=== PATIENT | female | born 1980 | race Caucasian/White ===

== ENCOUNTER 2019-06-15 15:04 | Observation (INO) | payer OTHER, SELFPAY ==
[2019-06-15] VITALS (10 sets, daily range): BP systolic 123–153; BP diastolic 71–92; PULSE 74–100; RESP 16–18; TEMP 36.4–36.7; O2SAT 97–100; BMI 35.8
--- NOTE | ~2019-06-15 | XR_ITS ---
EXAMINATION: XR chest 2V EXAM DATE: 06/15/2019 16:03 INDICATION: Epigastric pain, nausea, sweating. Dizziness. TECHNIQUE: Frontal and lateral projections of the chest obtained and reviewed. There is no prior tg dy for comparison. FINDINGS: The lungs are clear. There are no pleural effusions. The cardiomediastinal silhouette is within normal limits. There is no pneumothorax suspected. The bones and soft tissues are unremarkab le. There are cholecystectomy clips. IMPRESSION: Normal chest x-ray exam. Reviewed, dictated and finalized at location A. IMPRESSION: Normal chest x-ray exam.
--- NOTE | 2019-06-15 15:15 | ED.GENADULT ---
HPI - General Adult General Chief complaint: Chest Pain Stated complaint: abd pain Time Seen by Provider: 06/15/19 15:07 Source: patient Mode of arrival: ambulatory Limitations: no limitations History of Present Illness HPI narrative: Patient is a 39-year-old female who presents for evaluation of epigastric pain. Patient states she is at her place of work, when all of a sudden, patient began to experience severe epigastric pain that radiated to her left arm, because left arm tingling and pain as well as nausea and diaphoresis. Patient also states she felt very short of breath. She states the pain lasted for approximately 5 minutes in which she went to the bathroom, removed a surgical mass that she had been wearing at her place of work, and proceeded to have 2 episodes of nonbloody, nonbilious emesis. Patient had no loss of consciousness. Patient did feel lightheaded and short of breath. Patient did not want EMS called, because she did not want to make a commotion at the [employer] office she works at. Patient's significant other drove her to our facility, where she was noted to have normal initial vital signs. At the time of assessment, patient's pain has resolved. She has a very mild aching sensation in her epigastric region. She denies any upper chest pain, back pain or flank pain. No ripping or tearing sensation in her chest or back. No current numbness, shortness of breath. No recent cough or cold symptoms. No recent travel, leg swelling, calf pain. No history of blood clots. No recent surgeries. Patient recently saw her primary care physician who scheduled her for an outpatient stress test due to very strong cardiac history in her family. Related Data Home Medications Medication Instructions Recorded Confirmed azathioprine 50 mg PO DAILY 06/15/19 06/15/19 buspirone 5 mg PO BID 06/15/19 06/15/19 duloxetine 60 mg PO DAILY 06/15/19 06/15/19 zolpidem 5 mg PO HS 06/15/19 06/15/19 Allergies Allergy/AdvReac Type Severity Reaction Status Date / Time Penicillins Allergy Severe Other Verified 06/15/19 15:16 egg Allergy Unknown ABDOMINAL Verified 12/23/15 23:39 PAIN Review of Systems Review of Systems: Narrative: CONSTITUTIONAL: Denies fever, chills, or sweats. EYES: Denies visual changes, redness, or discharge. ENT: Denies rhinorrhea, congestion, sore throat, or otalgia. CARDIOVASCULAR: Denies chest pain, palpitations RESPIRATORY: Denies cough or dyspnea. GASTROINTESTINAL: Ports epigastric abdominal pain, reports nausea, vomiting, denies diarrhea GENITOURINARY: Denies dysuria or hematuria. SKIN: Denies rash or itching. MUSCULOSKELETAL: Denies back pain, joint pain, or myalgia. NEUROLOGIC: Denies headache, numbness, or weakness. [facility] Past Medical History Medical History (Updated 06/15/19 @ 16:20 by Kim Ashley MD) Anemia Anxiety Depression Eczema Irritable bowel disease Migraine Psoriasis Surgical History Surgical History (Updated 06/15/19 @ 15:31 by Kim Ashley MD) Hx of cholecystectomy Family History Family History Sibling Asthma Father Acute myocardial infarction Rheumatoid arthritis Cardiovascular disease Grandparent Cancer Asthma Cardiovascular disease Acute myocardial infarction Diabetes mellitus COPD (chronic obstructive pulmonary disease) Mother High cholesterol Cardiovascular disease Social History Social History Smoking status: Never smoker Smoking end date: 03/03/12 Alcohol intake: never Substance use: never Substance use type: does not use Gender identity (if verbalized by the patient): Female Spiritual care concerns: No Agree to blood products: Yes Exam Narrative: Exam Narrative: GENERAL: Awake, alert, conversant HEAD: Normocephalic, atraumatic. EYES: PERRLA and EOMI. ENT: Nares clear, no rhinorrhea or epistaxis. Mucous membra
--- NOTE | 2019-06-15 15:28 | ECG_ITS ---
Measurements Intervals [place] Rate: 85 P: 54 OR: 168 QRS: 64 QRSD: 82 T: 50 QT: 350 QTc: 417 Interpretive Statements SINUS RHYTHM NONSPECIFIC T-WAVE ABNORMALITY- ANTERIOR LEADS BASELINE WANDER- V1 BORDERLINE ECG Electronically Signed On 06-15-2019 16:14:57 CDT by Donovan Uribe D.O.
[2019-06-15] MEDS: ASPIRIN 81 MG CHEWABLE TABLET 324 MG PO (15:34)
[2019-06-15] MEDS: ONDANSETRON INJ 4 MG/2 ML VIAL IV PUSH (15:35)
[2019-06-15] MEDS: MORPHINE SULFATE 2 MG/ML INJ IV PUSH (15:36)
[2019-06-15 15:37] LABS: Basophils Percent Auto 0.5 % (0.2-1.2); Eosinophils Absolute Auto 0.3 K/mm3 (0-0.3); Eosinophils Percent Auto 4.2 % (0-4.4); Hematocrit 38.1 % (37.0-47.0); Immature Granulocyte Absolute 0.02 K/mm3 (0.00-0.031); Immature Granulocyte Percent A 0.3 % (0-0.5); Lymphocytes Absolute Auto 1.12 K/mm3 (0.9-3.2); Lymphocytes Percent Auto 18.3 % (18.3-44.2); Mean Corpuscular HGB Conc 31.5 g/dl (32-36); Mean Corpuscular Hemoglobin 26.5 pg (26-34); Mean Corpuscular Volume 84.1 fl (80-100); Mean Platelet Volume 10.2 fl (7.4-10.4); Monocytes Absolute Auto 0.5 K/mm3 (0.1-0.6); Monocytes Percent Auto 7.8 % (2.6-8.5); Neutrophils Absolute Auto 4.2 K/mm3 (1.3-6.7); Neutrophils Percent Auto 68.9 % (45.5-73.1); Platelet Count Result 227 k/mm3 (150-375); Red Blood Count 4.53 M/mm3 (4.2-5.4); Red Cell Distribution Width 14.4 % (11.5-14.5); White Blood Count 6.1 K/mm3 (4.5-10.0)
[2019-06-15 15:47] LABS: Prothrombin Time 13.3 Seconds (11.1-14.7)
[2019-06-15 15:48] LABS: Partial Thromboplastin Time 23.8 SECONDS (22.3-36.8)
[2019-06-15 15:49] LABS: Alanine Aminotransferase 33 U/L (4-35); Albumin Level 4.3 g/dL (3.5-5.1); Alkaline Phosphatase 69 U/L (38-126); Aspartate Amino Transferase 48 U/L (14-36); Bilirubin,Total 0.2 mg/dL (0.2-1.3); Blood Urea Nitrogen 13 mg/dL (7-17); Calcium 8.9 mg/dL (8.4-10.2); Carbon Dioxide 25 mmol/L (22-30); Chloride 105 mmol/L (98-107); Estimated CRCL calculation 83 ml/min; Estimated Glomerular Filt Rate > 60; Glucose 107 mg/dL (65-105); Potassium 3.8 mmol/L (3.4-5.0); Sodium 137 mmol/L (137-145)
[2019-06-15 16:04] LABS: Troponin I < 0.012 ng/mL (0.000-0.034)
[2019-06-15 16:14] LABS: Lipase 94 U/L (23-300)
--- NOTE | 2019-06-15 16:50 | ECG_ITS ---
Measurements Intervals [place] Rate: 91 P: 47 TN: 162 QRS: 52 QRSD: 82 T: 47 QT: 365 QTc: 449 Interpretive Statements SINUS RHYTHM NONSPECIFIC T-WAVE ABNORMALITY- ANTEROLAT/INF LEADS BORDERLINE ECG Electronically Signed On 06-18-2019 13:22:30 CDT by Donovan Uribe D.O.
--- NOTE | 2019-06-15 17:59 | ADMGEN ---
This patient, Alea Hawk, was admitted to IMU Room 202-. Patient/family oriented to hospital policies and general routines including ID bracelet, bed and alarms, visiting hours, pain management, procedures, bathroom and other care routines, personal items, smoking policy, room service/diet, and visiting hours. Valuables list has been completed. Information on how to activate the Rapid Response Team has been discussed. Patient/Family are encouraged to report perceived risks to care and to ask questions if they do not understand what they are told or what they should do.
[2019-06-15 19:40] LABS: Troponin I < 0.012 ng/mL (0.000-0.034)
[2019-06-15 22:17] LABS: Troponin I < 0.012 ng/mL (0.000-0.034)
[2019-06-15] MEDS: ZOLPIDEM TARTRATE 5 MG TABLET PO (23:03)
[2019-06-15] MEDS: DICLOFENAC SOD 75 MG TABLET.EC PO (23:03)
[2019-06-16] VITALS (8 sets, daily range): BP systolic 118–132; BP diastolic 69–73; PULSE 77–101; RESP 16–21; TEMP 36–36.5; O2SAT 98–99
--- NOTE | 2019-06-16 | EST_ITS ---
Patient Info Name: Alea Hawk Age: 39 years : 1980 Gender: Female Ht: 62 in Wt: 193 lbs BSA: 2.00 m2 HR: 80 bpm BP: 136 / 77 mmHg Heart Rhythm: Sinus Rhythm Technical Quality: Good Exam Date: 06/16/2019 10:29 AM Exam Location: [facility] Card Pulmonary Patient Status: Inpatient Admit Date: 06/15/2019 Staff Ordering Physician: Kashif Copeland MD Training Director: Pa Esposito RDCS, RT Attending Provider: Josias Cunningham MD Referring Physician: Dinorah GALVIN; Exercise Technologist: Osvaldo Rodríguez RDCS Exercise Physician: Kashif Copeland MD Exam Type: CA stress echo Study Info Indications R07.9 - Chest pain, unspecified Treadmill exercise stress echocardiogram is performed. History/Risk Factors Chest pain. Summary 1. Normal sinus rhythm. 2. Minor resting ST/T wave changes. 3. No abnormal ST/T wave changes with exercise. 4. Normal left venticular systolic function with no regional wall motion abnormalities noted at rest. 5. Left ventricular chamber size are normal with no regional wall motion abnormalities with an estimated ejection fraction of 55-60%. 6. Negative stress test at 100% APMHR. Stress Echo Findings Left Ventricle Normal left venticular systolic function with no regional wall motion abnormalities noted at rest. Left Ventricle Left ventricular chamber size are normal with no regional wall motion abnormalities with an estimated ejection fraction of 55-60%. Protocol: Reji Stress ECG Details Stage: REST Duration (min): 0 min : 30 sec Speed (mph): 0.0 Grade (%): 0 HR (bpm): 100 SBP (mmHg): --- DBP (mmHg): --- METS: --- Stage: REST Duration (min): 0 min : 42 sec Speed (mph): 0.0 Grade (%): 0 HR (bpm): 103 SBP (mmHg): --- DBP (mmHg): --- METS: --- Stage: STAGE 1 Duration (min): 1 min : 0 sec Speed (mph): 1.7 Grade (%): 10 HR (bpm): 120 SBP (mmHg): --- DBP (mmHg): --- METS: --- Stage: STAGE 1 Duration (min): 2 min : 0 sec Speed (mph): 1.7 Grade (%): 10 HR (bpm): 129 SBP (mmHg): --- DBP (mmHg): --- METS: --- Stage: STAGE 1 Duration (min): 3 min : 0 sec Speed (mph): 1.7 Grade (%): 10 HR (bpm): 133 SBP (mmHg): --- DBP (mmHg): --- METS: --- Stage: STAGE 2 Duration (min): 1 min : 0 sec Speed (mph): 2.5 Grade (%): 12 HR (bpm): 145 SBP (mmHg): 147 DBP (mmHg): 82 METS: --- Stage: STAGE 2 Duration (min): 2 min : 0 sec Speed (mph): 2.5 Grade (%): 12 HR (bpm): 151 SBP (mmHg): 132 DBP (mmHg): 81 METS: --- Stage: STAGE 2 Duration (min): 3 min : 0 sec Speed (mph): 2.5 Grade (%): 12 HR (bpm): 161 SBP (mmHg): 132 DBP (mmHg): 81 METS: --- Stage: STAGE 3 Duration (min): 1 min : 0 sec Speed (mph): 0.0 Grade (%): 0 HR (bpm): 179 SBP (mmHg): 136 DBP (mmHg): 87 METS: --- Stage: STAGE 3 Duration (min): 1 min : 3 sec Speed (mph): 0.
[2019-06-16] MEDS: ASPIRIN 81 MG CHEWABLE TABLET PO (08:30)
--- NOTE | 2019-06-16 10:07 | PM.IMHP ---
H&P: HPI History of Present Illness Chief complaint: Angina Narrative: Alea Hawk is a 39 year old female without prior history of cardiac disease or problems who was admitted to our service after being seen in the emergency room yesterday afternoon because of some chest pain. 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 She was simply talking with a co-worker and really feeling well when yesterday she started to experience low substernal to mid epigastric pain which was relatively intense in nature was also associated with some nausea. Her co-worker saw that she was feeling poorly she went into the restroom and proceeded to have some emesis of gastric contents. There was no hematemesis or coffee-ground emesis. She was seen by coworkers coming out of the restroom and appeared to be pale she was somewhat diaphoretic and for that reason she went to a break room to sit down and they consider calling an ambulance ultimately she called her who came to get her in brought her here to the emergency room for further evaluation. By the time she got here in the emergency room she was no longer having the symptoms. She estimates altogether this went on for about 10 minutes or so but possibly a bit longer than that. Her evaluation in the ER was unrevealing. She was given the diagnosis of unstable angina and admitted to our service for evaluation. With respect to angina she is not really experiencing any exertional chest pain pressure or heaviness. She does not exercise regularly for fitness but she does pursue an active lifestyle and enjoys doing gardening and yd work as well in going for walks with her and she does not generally have any exertional symptoms to report. She feels well this morning. She does not been having any palpitations syncope orthopnea PND or edema. Her 12 lead ECG in the chart from the emergency room is within normal limits her biomarkers are negative x3 sets. She does not have a history of hypertension and diabetes. She does have a history of mild dyslipidemia for which her physician is observing and so far has not started any medical anti lipid therapy. She does have a family history of coronary disease in both parents who are alive in their late 60s both of whom have had percutaneous coronary revascularization procedures performed. She recently underwent a cholecystectomy because of symptomatic cholelithiasis. That operation she says was done at [facility]. Review of Systems Constitutional: Constitutional: Reports no additional constitutional complaints Eyes: Eyes: Reports no additional eye complaints ENT: Reports system reviewed and no additional complaints, except as documented Cardiovascular: Cardiovascular: Reports as per HPI Respiratory: Respiratory: Reports no additional respiratory complaints Gastrointestinal: Gastrointestinal: Reports as per HPI, Reports nausea and Reports vomiting Musculoskeletal: Musculoskeletal: Reports no additional musculoskeletal complaints Integumentary/Breasts: Skin/Breast: Reports system reviewed and no additional complaints, except as docu Neurologic: Reports system reviewed and no additional complaints, except as documented [facility] Past Medical History Medical History (Updated 06/15/19 @ 16:20 by Kim Ashley MD) Anemia Anxiety Depression Eczema Irritable bowel disease Migraine Psoriasis Surgical History Surgical History (Updated 06/15/19 @ 15:31 by Kim Ashley MD) Hx of cholecystectomy Family History Family History Sibling Asthma Father Acute myocardial infarction Rheumatoid arthritis Cardiovascular disease Grandparent Cancer Asthma Cardiovascular disease Acute myocardial infarction Diabetes mellitus COPD (chronic obstructive pulmonary disease) Mother High cholesterol Cardiovascular disease Social History Social History (Reviewed
--- NOTE | 2019-06-16 11:55 | PM.DS ---
DS: Diagnosis Admitting Diagnosis Admitting Diagnosis: Angina Discharge Diagnosis (1) Chest pain: Code(s): R07.9 - Chest pain, unspecified Status: Acute Assessment and Plan: Troponin negative x3. EKG unremarkable. Stress echocardiogram negative for ischemia DS: Summary Hospital Course Reason for hospitalization: Chest pain Hospital Course: 39 year old female without prior history of cardiac disease or problems admitted after being seen in the emergency room yesterday afternoon because of some chest pain. 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 She was simply talking with a co-worker and really feeling well when yesterday she started to experience low substernal to mid epigastric pain which was relatively intense in nature was also associated with some nausea. Her co-worker saw that she was feeling poorly she went into the restroom and proceeded to have some emesis of gastric contents. There was no hematemesis or coffee-ground emesis. She was seen by coworkers coming out of the restroom and appeared to be pale she was somewhat diaphoretic and for that reason she went to a break room to sit down and they consider calling an ambulance ultimately she called her who came to get her in brought her here to the emergency room for further evaluation. By the time she got here in the emergency room she was no longer having the symptoms. She estimates altogether this went on for about 10 minutes or so but possibly a bit longer than that. Her evaluation in the ER was unrevealing With respect to angina she is not really experiencing any exertional chest pain pressure or heaviness. She does not exercise regularly for fitness but she does pursue an active lifestyle and enjoys doing gardening and yard work as well going for walks with her and she does not generally have any exertional symptoms to report. 12 lead ECG in the chart from the emergency room is within normal limits her biomarkers are negative x3 sets. She does not have a history of hypertension and diabetes. She does have a history of mild dyslipidemia for which her primary care provider is observing and so far has not started any medical anti lipid therapy. She underwent a stress echocardiogram which was negative for symptoms and ischemia. She was discharged home in stable and pain-free condition. She is to follow-up with primary care provider. Status at Discharge Functional status at discharge: independent ambulation Overall status at discharge: patient is back to baseline Time Spent with Patient Time attestation: Total time spent providing and/or coordinating discharge services: Time spent: Less than 30 minutes Exam Const: General: comfortable and no acute distress Other: Healthy-appearing overweight white female in no apparent distress HENMT: Mouth: Yes moist mucous membranes Eyes: Sclera: sclerae normal Pupils: Equal, round and reactive pupils present Neck: Neck: supple and no JVD Thyroid: thyroid normal Other: Carotid upstrokes are normal in character bilaterally and are free of bruits. Resp: Effort & Inspection: normal respiratory effort Auscultation: clear to auscultation bilaterally Cardio: Rate: regular rate Rhythm: regular rhythm Other: PMI nondisplaced no discernible gallop or murmur GI: Auscultation: normal bowel sounds Skin: General skin exam: normal color Neuro: Cranial nerves: Yes Equal, round and reactive pupils present Cognition (Neuro): normal cognition Extrem: General: normal to inspection DS: Data Data Completed and Pending Labs on day of discharge: Labs from last 24 hours 06/15/19 06/15/19 06/15/19 21:25 18:47 15:30 WBC RBC Hgb Hct MCV MCH MCHC RDW Plt Count MPV Immature Gran % (Auto) Neut % (Auto) Lymph % (Auto) [place] % (Auto) Eos % (Auto) Baso % (Auto) Lymph # (A
== END 2019-06-16 12:55 | disposition home or self-care (01) ==
LOC: ANHED 16:31 → ANHIMU 17:41
PROVIDERS: Admitting Provider Internal Medicine Cardiovascular Disease; Emergency Provider Emergency Medicine; PCP Nurse Practitioner Adult Health; Visit Provider Specialist
DX: R07.9 Chest pain, unspecified (principal); E78.5 Hyperlipidemia, unspecified; G43.909 Migraine, unspecified, not intractable, without status migrainosus; F32.9 Major depressive disorder, single episode, unspecified; F41.9 Anxiety disorder, unspecified; K58.9 Irritable bowel syndrome, unspecified; L40.9 Psoriasis, unspecified; L30.9 Dermatitis, unspecified; Z82.49 Family history of ischemic heart disease and other diseases of the circulatory system
CPT/HCPCS: 36415; 71046; 80053; 81025; 83690; 84484; 85025; 85610; 85730; 93005; 93351; 96374; 96375; 99285; A9270; G0378; J2270; J2405

== ENCOUNTER 2019-10-16 16:00 | Emergency (ER) | payer OTHER, SELFPAY ==
[2019-10-16 16:17] VITALS: BP 136/84; PULSE 95; RESP 16; TEMP 36.4; O2SAT 100
--- NOTE | 2019-10-16 16:54 | ED.SKABFB ---
HPI - Skin/Abscess/Foreign Bdy General Chief complaint: Skin/Abscess/Foreign Body Stated complaint: right ankle bite Time Seen by Provider: 10/16/19 16:30 Source: patient Mode of arrival: ambulatory Limitations: no limitations History of Present Illness HPI narrative: Alea Hawk is a 39 yo female with a PMH of psoriasis, lupus, RH, autoimmune hepatitis, wh comes with R medial ankle swelling and discoloration x 2 dauys that seem sto be worsening. Slight induration; no history of trauma twisting, skin tear at the site; patient is worried is either cellulitic or is a blood clot. Psoriatic Rash is on bottom of both feet; old scars of psoriasis on knees anterior tibia and hands. Is on immunosuppressive medications for the above Related Data Home Medications Medication Instructions Recorded Confirmed azathioprine 50 mg PO DAILY 06/15/19 10/16/19 buspirone 5 mg PO BID 06/15/19 10/16/19 diclofenac sodium 75 mg PO QPM 06/15/19 10/16/19 duloxetine 60 mg PO DAILY 06/15/19 10/16/19 zolpidem 5 mg PO HS 06/15/19 10/16/19 adalimumab [Humira Pen] 40 mg SUBCUT [id number] 10/16/19 10/16/19 Allergies Allergy/AdvReac Type Severity Reaction Status Date / Time Penicillins Allergy Severe Other Verified 06/15/19 15:16 egg Allergy Unknown ABDOMINAL Verified 12/23/15 23:39 PAIN Review of Systems Review of Systems: Narrative: CONSTITUTIONAL: Denies fever, chills, sweats. EYES: Denies visual changes, redness, discharge. ENT: Denies rhinorrhea, congestion, sore throat, otalgia. CARDIOVASCULAR: Denies chest pain, palpitations, edema. RESPIRATORY: Denies dyspnea, wheezing, cough GASTROINTESTINAL: Denies abdominal pain, nausea, vomiting, diarrhea. GENITOURINARY: Denies dysuria, hematuria, abnormal discharge SKIN: Denies rash or itching. Right medial ankle discoloration and mild edema and a 2 x 4 area; denies trauma NEUROLOGIC: Denies numbness, or focal weakness. PSYCHIATRIC: Denies anxiety or depression. [facility] Past Medical History Medical History Anemia Anxiety Depression Eczema Irritable bowel disease Migraine Psoriasis Surgical History Surgical History Hx of cholecystectomy Family History Family History Sibling Asthma Father Acute myocardial infarction Rheumatoid arthritis Cardiovascular disease Grandparent Cancer Asthma Cardiovascular disease Acute myocardial infarction Diabetes mellitus COPD (chronic obstructive pulmonary disease) Mother High cholesterol Cardiovascular disease Social History Social History Smoking status: Never smoker Smoking end date: 03/03/12 Alcohol intake: never Substance use: never Substance use type: does not use Gender identity (if verbalized by the patient): Female Spiritual care concerns: No Agree to blood products: Yes Comments At time of signature, I agree with nursing past medical, surgical, social and family history. There is no relevant family history pertinent to the presenting complaint. Exam Narrative: Exam Narrative: GENERAL: This is a well-nourished, well-developed patient, in mild distress. Is somewhat anxious HEAD: normocephalic, atraumatic. EYES: Sclera clear/white. Vision is grossly intact. EARS: External ears normal. Hearing grossly intact. NOSE: External nose normal without nasal discharge, nares without redness, no rhinorrhea. THROAT: Mucous membranes moist, NECK: Neck supple, CARDIOVASCULAR: Regular rate and rhythm without murmurs, gallops, or rubs. RESPIRATORY: Clear to auscultation. Breath sounds equal bilaterally. No wheezes, rales, or rhonchi. GASTROINTESTINAL: Abdomen soft, SKIN: warm, intact -except for bottom of both feet where it still has psoriasis patches; R medial ankle mild swelling in 2 x 4 area- almost ec
== END 2019-10-16 17:06 | disposition home or self-care (01) ==
PROVIDERS: Emergency Provider Nurse Practitioner; PCP Nurse Practitioner Adult Health
DX: S99.911A Unspecified injury of right ankle, initial encounter (principal); X58.XXXA Exposure to other specified factors, initial encounter; D64.9 Anemia, unspecified; F41.9 Anxiety disorder, unspecified; L40.9 Psoriasis, unspecified; M06.9 Rheumatoid arthritis, unspecified; K75.4 Autoimmune hepatitis
CPT/HCPCS: 99212; G0463

== ENCOUNTER → 2021-03-06 09:19 | Outpatient (CLI) | payer OTHER, SELFPAY ==
[2021-03-06 20:10] LABS: SARS-CoV-2 RNA PCR Positive
== END ==
PROVIDERS: PCP Nurse Practitioner Adult Health; Visit Provider Nurse Practitioner Adult Health
DX: U07.1 COVID-19 (principal)
CPT/HCPCS: C9803; U0003; U0005

== ENCOUNTER 2021-06-22 14:39 | Emergency (ER) | payer OTHER, SELFPAY ==
[2021-06-22] VITALS (28 sets, daily range): BP systolic 127–156; BP diastolic 81–102; PULSE 86–106; RESP 12–22; TEMP 36.6; O2SAT 95–100
--- NOTE | ~2021-06-22 | CT_ITS ---
EXAMINATION: CT brain wo con DATE: 06/22/2021 15:59 INDICATION: Syncope. Head injury. TECHNIQUE: Computed tomography (CT) of the head was performed without intravenous contrast. The mA wa s adjusted according to patient size. Iterative reconstruction technique was employed. The dose-lengt h product was 605.33 mGy-cm. COMPARISON: Head CT 12/24/2015, brain MRI 12/21/2011 FINDINGS: There is no intracranial hemorrhage, acute infarction, or abnormal intracranial mass lesion . The ventricles are normal in size. The orbits are normal. There is mild mucosal thickening in the e thmoid sinuses. The mastoid air cells are normal. There is right frontal scalp soft tissue swelling. IMPRESSION: 1. Normal brain. Reviewed, dictated and finalized at location B. IMPRESSION: 1. Normal brain.
--- NOTE | ~2021-06-22 | CT_ITS ---
EXAMINATION: CT abdomen pelvis w con DATE: 06/22/2021 17:00 INDICATION: Abdominal pain and syncope TECHNIQUE: Computed tomography (CT) of the abdomen and pelvis was performed with 100 mL Omnipaque-350 intravenous contrast. Automated exposure control and iterative reconstruction technique were employe d. The dose-length product was 696.37 mGy-cm. COMPARISON: None FINDINGS: Lung bases are clear. Heart size is normal. No pericardial or pleural effusion. Cholecystectomy clips at the gallbladder fossa. Focal hepatic steatosis at the ligamentum teres. Spleen, pancreas, bilater al adrenal glands and kidneys are normal. Bowels including the appendix are normal. Bladder, antevert ed uterus and bilateral adnexa are normal. Several phleboliths in the pelvis. No free intraperitoneal gas or fluid. No pathologically enlarged abdominal or pelvic lymphadenopathy. Severe disc height los s with mild degenerative endplate changes at L5-S1. Mild bilateral hip osteoarthritis. IMPRESSION: 1. No acute intra-abdominal/pelvic process. Reviewed, dictated and finalized at location A.
--- NOTE | ~2021-06-22 | CT_ITS ---
EXAMINATION: CT facial & cervical spine wo DATE: 06/22/2021 16:01 INDICATION: Transient alteration of awareness, head injury TECHNIQUE: Computed tomography (CT) of the maxillofacial region and cervical spine was performed with out intravenous contrast. The dose-length product (DLP) was 466.80 mGy-cm. Automated exposure control and iterative reconstruction technique were employed. COMPARISON: None FINDINGS: MAXILLOFACIAL CT: There is no facial fracture. The paranasal sinuses are well aerated. The soft tissues are unremarkabl e. CERVICAL SPINE CT: There is no fracture, dislocation, or subluxation. The vertebral body heights, alignment, and interve rtebral disc spaces are normal. The paravertebral soft tissues are unremarkable. The odontoid is inta ct. IMPRESSION: 1. No acute abnormality of the facial bones or cervical spine. Reviewed, dictated and finalized at location F.
--- NOTE | 2021-06-22 15:04 | ECG_ITS ---
Measurements Intervals [place] Rate: 87 P: 52 DC: 162 QRS: 63 QRSD: 83 T: 64 QT: 365 QTc: 441 Interpretive Statements SINUS RHYTHM NONSPECIFIC T-WAVE ABNORMALITY COMPARED TO ECG 06/15/2019 16:54:42 NO SIGNIFICANT DIFFERENCE Electronically Signed On 06-22-2021 15:31:23 CDT by Kashif Copeland M.D.
--- NOTE | 2021-06-22 15:10 | ED.SYNCOPE ---
HPI - Syncope General Chief Complaint: Syncope <HERMAN Castro Last Filed: 06/22/21 19:34> Stated Complaint: syncope/fall/facial injury <HERMAN Castro Last Filed: 06/22/21 19:34> Time Seen by Provider: 06/22/21 14:56 <HERMAN Castro Last Filed: 06/22/21 19:34> Source: patient <HERMAN Castro Last Filed: 06/22/21 19:34> Mode of arrival: ambulatory <HERMAN Castro Last Filed: 06/22/21 19:34> Limitations: no limitations <HERMAN Castro Last Filed: 06/22/21 19:34> History of Present Illness HPI narrative: Patient is a 41-year-old female who presents the ED with report of syncope. Patient reports she has a long history of acid reflux and IBS issues. She states she has been eating a very basic diet lately but ate a pulled pork sandwich with her at lunch today. She then developed abdominal pain and cramping afterwards. She went to her bathroom at work to gather herself. She states she did not feel like she had to have a bowel movement at that time, but just had pain. She started feeling dizzy from the pain so she sat on the toilet. The next thing she knew she was on the ground reportedly having passed out. She sustained a laceration to her philtrum and 2 skin abrasions on the bridge of her nose from her eyeglasses. No epistaxis. She states she thinks she had another syncopal episode when she was on the ground. Her computer programmer chief in her office heard her and came for help. Patient reports a several year history of similar abdominal pain, however she states she has never passed out with it before. She does complain of a headache and abdominal pain currently in the ED bed. Denies any nausea, vomiting, chest pain, shortness of breath, vision changes, back pain, palpitations, BLE pain or edema, rectal bleeding, melena. <HERMAN Castro Last Filed: 06/22/21 19:34> Related Data Home Medications: Home Medications Medication Instructions Recorded Confirmed azathioprine 50 mg PO DAILY 06/15/19 10/16/19 buspirone 5 mg PO BID 06/15/19 10/16/19 diclofenac sodium 75 mg PO QPM 06/15/19 10/16/19 duloxetine 60 mg PO DAILY 06/15/19 10/16/19 zolpidem 5 mg PO HS 06/15/19 10/16/19 adalimumab [Humira Pen] 40 mg SUBCUT [id number] 10/16/19 10/16/19 <Aneta Palacios PA-C - Last Filed: 06/22/21 19:34> Allergies/Adverse Reactions: Allergies Allergy/AdvReac Type Severity Reaction Status Date / Time Penicillins Allergy Severe Other Verified 06/22/21 15:13 egg Allergy Unknown ABDOMINAL Verified 06/22/21 15:13 PAIN <Aneta Palacios PA-C - Last Filed: 06/22/21 19:34> Review of Systems Review of Systems: CONSTITUTIONAL: Denies fever, chills. EYES: Denies visual changes. CARDIOVASCULAR: Denies chest pain, palpitations, or BLE pain/edema. RESPIRATORY: Denies dyspnea. GASTROINTESTINAL: Reports abdominal pain and cramping. Denies nausea, vomiting, rectal bleeding, melena, diarrhea. SKIN: Reports laceration above lip and 2 skin abrasions to bridge of nose. MUSCULOSKELETAL: Denies back pain. NEUROLOGIC: Reports dizziness, syncope, headache currently. Denies numbness, or weakness. <Aneta Palacios PA-C - Last Filed: 06/22/21 19:34> All systems reviewed & are unremarkable except as noted in HPI and below <Aneta Palacios PA-C - Last Filed: 06/22/21 19:34> PMF Past Medical History Medical History: Medical History (Updated 06/23/21 @ 00:00 by Pamella Garibay) Anemia Anxiety Depression Eczema Irritable bowel disease Migraine Psoriasis <Aneta Palacios PA-C - Last Filed: 06/22/21 19:34> Surgical History Surgical History: Surgical History Hx of cholecystectomy <Aneta Palacios PA-C - Last Filed: 06/22/21 19:34> Family History Family History: Family History Sibling Asthma Father Acute myocardial infarction
[2021-06-22 15:40] LABS: Basophils Absolute Auto 0.1 K/mm3 (0.0-0.1); Basophils Percent Auto 1.1 % (0.2-1.2); Eosinophils Absolute Auto 0.3 K/mm3 (0-0.3); Eosinophils Percent Auto 6.5 % (0-4.4); Hematocrit 34.3 % (37.0-47.0); Hemoglobin 10.5 g/dL (12.0-15.0); Immature Granulocyte Absolute 0.01 K/mm3 (0.00-0.031); Immature Granulocyte Percent A 0.2 % (0-0.5); Lymphocytes Absolute Auto 1.34 K/mm3 (0.9-3.2); Mean Corpuscular HGB Conc 30.6 g/dl (32-36); Mean Corpuscular Hemoglobin 25.9 pg (26-34); Mean Corpuscular Volume 84.7 fl (80-100); Mean Platelet Volume 9.8 fl (7.4-10.4); Monocytes Absolute Auto 0.4 K/mm3 (0.1-0.6); Monocytes Percent Auto 9.1 % (2.6-8.5); Neutrophils Absolute Auto 2.5 K/mm3 (1.3-6.7); Neutrophils Percent Auto 54.1 % (45.5-73.1); Platelet Count Result 261 k/mm3 (150-375); Red Blood Count 4.05 M/mm3 (4.2-5.4); Red Cell Distribution Width 12.8 % (11.5-14.5); White Blood Count 4.6 K/mm3 (4.5-10.0)
[2021-06-22 15:49] LABS: Alanine Aminotransferase 18 U/L (4-35); Albumin Level 4.5 g/dL (3.5-5.1); Alkaline Phosphatase 54 U/L (38-126); Anion Gap 8 mmol/L (8-16); Aspartate Amino Transferase 27 U/L (14-36); Bilirubin,Total 0.2 mg/dL (0.2-1.3); Blood Urea Nitrogen 17 mg/dL (7-17); Calcium 8.7 mg/dL (8.4-10.2); Carbon Dioxide 25 mmol/L (22-30); Chloride 105 mmol/L (98-107); Estimated CRCL calculation 64 ml/min; Estimated Glomerular Filt Rate > 60; Glucose 104 mg/dL (65-110); Potassium 3.4 mmol/L (3.4-5.0); Sodium 138 mmol/L (137-145)
[2021-06-22] MEDS: SODIUM CHLORIDE 0.9% IV 1,000 ML 999 ML IV CONT (17:01)
[2021-06-22] MEDS: DICYCLOMINE HCL 10 MG CAPSULE PO (18:09)
[2021-06-22] MEDS: KETOROLAC 30 MG/ML VIAL (*BKC) IV PUSH (18:09)
--- NOTE | 2021-06-22 18:44 | PC.NURSE ---
PA at bedside for laceration repair.
== END 2021-06-22 19:26 | disposition home or self-care (01) ==
PROVIDERS: Emergency Provider Emergency Medicine; PCP Nurse Practitioner Adult Health
DX: R55 Syncope and collapse (principal); S01.81XA Laceration without foreign body of other part of head, initial encounter; D64.9 Anemia, unspecified; K58.9 Irritable bowel syndrome, unspecified; K21.9 Gastro-esophageal reflux disease without esophagitis; F41.9 Anxiety disorder, unspecified; F32.A Depression, unspecified; Z87.891 Personal history of nicotine dependence; R94.31 Abnormal electrocardiogram [ECG] [EKG]; W18.11XA Fall from or off toilet without subsequent striking against object, initial encounter
CPT/HCPCS: 12011; 36415; 70450; 70486; 72125; 74177; 80053; 81025; 85025; 93005; 96361; 96365; 96375; 99284; A9270; J0131; J1885; J7030; Q9967

== ENCOUNTER 2021-08-22 16:17 | Emergency (ER) | payer OTHER, SELFPAY ==
--- NOTE | ~2021-08-22 | CT_ITS ---
EXAMINATION: CT brain wo con DATE: 08/22/2021 20:03 INDICATION: dizziness . TECHNIQUE: Computed tomography (CT) of the head was performed without intravenous contrast. The mA wa s adjusted according to patient size. Iterative reconstruction technique was employed. The dose-lengt h product was 605.33 mGy-cm. COMPARISON: 06/22/2021 FINDINGS: No acute intracranial hemorrhage or extra-axial fluid collection. No hydrocephalus, mass, or herniation. No acute ischemic infarct. Unremarkable dural venous sinus attenuation. No acute osseous abnormality. The aerated spaces are clear. IMPRESSION: No acute intracranial process. Reviewed, dictated and finalized at location K.
--- NOTE | ~2021-08-22 | XR_ITS ---
EXAMINATION: XR chest 1V portable Exam Date/Time: 08/22/2021 19:39 CDT HISTORY: dizziness Comparison: 06/15/2019. RESULT: Lines, tubes, and devices: None. Lungs and pleura: Clear. Cardiomediastinal silhouette: Stable cardiomediastinal silhouette. Other: No acute osseous or upper abdominal finding. IMPRESSION: No acute cardiopulmonary process. Reviewed, dictated and finalized at location K.
[2021-08-22 16:21] VITALS: BP 162/64; PULSE 80; RESP 18; TEMP 36.6; O2SAT 99
--- NOTE | 2021-08-22 16:21 | ECG_ITS ---
Measurements Intervals [place] Rate: 84 P: 44 ID: 167 QRS: 61 QRSD: 84 T: 55 QT: 373 QTc: 443 Interpretive Statements SINUS RHYTHM BASELINE ARTIFACT NONSPECIFIC T-WAVE ABNORMALITY BORDERLINE ECG COMPARED TO ECG 06/22/2021 15:10:06 NO SIGNIFICANT CHANGES Electronically Signed On 08-22-2021 16:49:15 CDT by Josias Cunningham M.D.
[2021-08-22 16:42] LABS: Basophils Percent Auto 0.6 % (0.2-1.2); Eosinophils Absolute Auto 0.4 K/mm3 (0-0.3); Eosinophils Percent Auto 7.6 % (0-4.4); Hematocrit 38.4 % (37.0-47.0); Immature Granulocyte Absolute 0.02 K/mm3 (0.00-0.031); Immature Granulocyte Percent A 0.4 % (0-0.5); Lymphocytes Absolute Auto 1.49 K/mm3 (0.9-3.2); Lymphocytes Percent Auto 28.3 % (18.3-44.2); Mean Corpuscular HGB Conc 31.3 g/dl (32-36); Mean Corpuscular Hemoglobin 25.9 pg (26-34); Mean Corpuscular Volume 82.9 fl (80-100); Mean Platelet Volume 9.4 fl (7.4-10.4); Monocytes Absolute Auto 0.5 K/mm3 (0.1-0.6); Monocytes Percent Auto 8.9 % (2.6-8.5); Neutrophils Absolute Auto 2.9 K/mm3 (1.3-6.7); Neutrophils Percent Auto 54.2 % (45.5-73.1); Platelet Count Result 233 k/mm3 (150-375); Red Blood Count 4.63 M/mm3 (4.2-5.4); Red Cell Distribution Width 15.4 % (11.5-14.5); White Blood Count 5.3 K/mm3 (4.5-10.0)
[2021-08-22 18:48] VITALS: BP 130/71; PULSE 75
[2021-08-22 18:49] VITALS: BP 141/84; PULSE 81
[2021-08-22 18:50] VITALS: BP 132/77; PULSE 84
[2021-08-22 18:50] LABS: INR 1.1; Partial Thromboplastin Time 28.3 SECONDS (22.3-36.8); Prothrombin Time 13.6 Seconds (11.1-14.7)
[2021-08-22 18:59] LABS: Troponin I < 0.012 ng/mL (0.000-0.034)
[2021-08-22 19:14] LABS: Alanine Aminotransferase 22 U/L (6-35); Albumin Level 4.6 g/dL (3.5-5.1); Alkaline Phosphatase 65 U/L (38-126); Anion Gap 9 mmol/L (8-16); Aspartate Amino Transferase 28 U/L (14-36); Bilirubin,Total 0.2 mg/dL (0.2-1.3); Blood Urea Nitrogen 12 mg/dL (7-17); Calcium 9.1 mg/dL (8.4-10.2); Carbon Dioxide 25 mmol/L (22-30); Chloride 105 mmol/L (98-107); Estimated CRCL calculation 78 ml/min; Estimated Glomerular Filt Rate > 60; Glucose 94 mg/dL (65-110); Potassium 4.4 mmol/L (3.4-5.0); Sodium 139 mmol/L (137-145)
[2021-08-22 19:23] LABS: Appearance Urine Slightly Cloudy (Clear); Bilirubin Urine Negative (Negative); Blood Urine 2+ (Negative); Color Urine Yellow (Yellow); Glucose Urine UA Negative (Negative); Ketones Urine Negative (Negative); Leukocyte Esterase Ur Negative LEU/UL (Negative); Nitrate Urine Negative (Negative); Protein Urine Negative (Negative); Urobilinogen Urine 0.2 mg/dL (<2.0)
[2021-08-22 19:30] LABS: Add Urine Microscopic? YES; Bacteria Urine Trace /hpf; RBC Urine 0-2 /hpf (0-2); Squamous Epithelial Cell Urine Few /hpf (Few); WBC Urine 0-3 /hpf
[2021-08-22] MEDS: MECLIZINE HCL 25 MG TABLET PO (19:32)
[2021-08-22] MEDS: SODIUM CHLORIDE 0.9% IV 1,000 ML 999 ML IV CONT (19:33)
--- NOTE | 2021-08-22 20:46 | ED.DIZZY ---
HPI - Dizziness General Chief Complaint: Dizziness Stated Complaint: dizzy, blurred vision, nausea since 0830 Time Seen by Provider: 08/22/21 18:11 Source: RN notes reviewed History of Present Illness HPI Narrative: Patient presents emergency department from home for dizziness. 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 and has been seeing her?she states that she did needed to walk downstairs later that morning and walked downstairs and back upstairs and while walking upstairs upstairs she did have feeling that she may pass out but did not have any syncopal episodes states that with the episode she did have a mild feeling of blurred vision that has resolved she states she has been having frequent issues with dizziness and has been seeing cardiology and work-up for further evaluation she denies any fevers or chills numbness or tingling of the extremities weakness of the extremities chest pain, shortness of breath abdominal pain vomiting or any other symptoms states she does feel nauseous at times he states that all symptoms are resolved at this time only mild dizziness Related Data Home Medications Medication Instructions Recorded Confirmed azathioprine 50 mg tablet 50 mg PO DAILY 06/15/19 10/16/19 buspirone 5 mg tablet 5 mg PO BID 06/15/19 10/16/19 diclofenac sodium 75 mg 75 mg PO QPM 06/15/19 10/16/19 tablet,delayed release duloxetine 60 mg capsule,delayed 60 mg PO DAILY 06/15/19 10/16/19 release sprinkle zolpidem 5 mg tablet 5 mg PO HS 06/15/19 10/16/19 adalimumab 40 mg/0.8 mL 40 mg subcut [id number] 10/16/19 10/16/19 subcutaneous pen kit (Humira Pen) Allergies Allergy/AdvReac Type Severity Reaction Status Date / Time Penicillins Allergy Severe Other Verified 08/22/21 16:25 egg Allergy Unknown ABDOMINAL Verified 08/22/21 16:25 PAIN Review of Systems Review of Systems: Gen.: Denies fevers or chills Eyes: Denies eye pain or visual change ENT: Denies congestion Respiratory: Denies shortness of breath or cough CV: Denies chest pain or palpitations GI: Denies abdominal pain emesis or diarrhea. Reports nausea Musculoskeletal: Denies back pain or muscle pain Neuro: Reports dizziness Skin: Denies rash Except as documented, all other systems reviewed and negative [facility] Past Medical History Medical History (Updated 08/22/21 @ 20:50 by Kevin Major DO) Anemia Anxiety Depression Eczema Irritable bowel disease Migraine Psoriasis Surgical History Surgical History Hx of cholecystectomy Family History Family History Sibling Asthma Father Acute myocardial infarction Rheumatoid arthritis Cardiovascular disease Grandparent Cancer Asthma Cardiovascular disease Acute myocardial infarction Diabetes mellitus COPD (chronic obstructive pulmonary disease) Mother High cholesterol Cardiovascular disease Social History Social History Smoking status: Never smoker Smoking end date: 03/03/12 Alcohol intake: never Substance use: never Substance use type: does not use Gender identity (if verbalized by the patient): Female Spiritual care concerns: No Agree to blood products: Yes Exam Narrative: APPEARANCE: No acute distress, nontoxic, resting in bed EYES: EOMI HEENT: Normocephalic, atraumatic, TMs clear bilaterally nares patent RESPIRATORY: No respiratory distress Clear to auscultation bilaterally with no rhonchi wheezing or rales. CARDIOVASCULAR: Regular rate and rhythm without murmurs rubs or gallops. ABDOMINAL: Soft, nontender, nondistended, no rebound or guarding MUSCULOSKELETAl: Moves all extremities. No clubbing, cyanosis or edema. NEURO: Awake and alert x 4. F
[2021-08-22 21:30] VITALS: BP 123/69; PULSE 77; RESP 18; O2SAT 98
== END 2021-08-22 21:37 | disposition home or self-care (01) ==
PROVIDERS: Emergency Provider Emergency Medicine; PCP Nurse Practitioner Adult Health
DX: R42 Dizziness and giddiness (principal); D64.9 Anemia, unspecified; F41.9 Anxiety disorder, unspecified; F32.9 Major depressive disorder, single episode, unspecified
CPT/HCPCS: 36415; 70450; 71045; 80053; 81001; 81025; 84484; 85025; 85610; 85730; 93005; 96360; 96361; 99284; A9270; J7030

== ENCOUNTER 2021-09-20 14:20 | Outpatient (CLI) | payer OTHER, SELFPAY ==
[2021-09-20 14:33] LABS: Basophils Percent Auto 0.5 % (0.2-1.2); Eosinophils Absolute Auto 0.4 K/mm3 (0-0.3); Eosinophils Percent Auto 6.7 % (0-4.4); Hematocrit 36.8 % (37.0-47.0); Hemoglobin 11.6 g/dL (12.0-15.0); Immature Granulocyte Absolute 0.02 K/mm3 (0.00-0.031); Immature Granulocyte Percent A 0.3 % (0-0.5); Lymphocytes Absolute Auto 1.49 K/mm3 (0.9-3.2); Lymphocytes Percent Auto 25.8 % (18.3-44.2); Mean Corpuscular HGB Conc 31.5 g/dl (32-36); Mean Corpuscular Hemoglobin 26.1 pg (26-34); Mean Corpuscular Volume 82.9 fl (80-100); Mean Platelet Volume 9.5 fl (7.4-10.4); Monocytes Absolute Auto 0.6 K/mm3 (0.1-0.6); Monocytes Percent Auto 10.4 % (2.6-8.5); Neutrophils Absolute Auto 3.3 K/mm3 (1.3-6.7); Neutrophils Percent Auto 56.3 % (45.5-73.1); Platelet Count Result 225 k/mm3 (150-375); Red Blood Count 4.44 M/mm3 (4.2-5.4); White Blood Count 5.8 K/mm3 (4.5-10.0)
[2021-09-20 15:36] LABS: Iron 56 ug/dL (37-170)
[2021-09-20 15:40] LABS: Alanine Aminotransferase 20 U/L (6-35); Albumin Level 4.4 g/dL (3.5-5.1); Alkaline Phosphatase 69 U/L (38-126); Anion Gap 6 mmol/L (8-16); Aspartate Amino Transferase 28 U/L (14-36); Bilirubin,Total 0.3 mg/dL (0.2-1.3); Blood Urea Nitrogen 11 mg/dL (7-17); Calcium 9.2 mg/dL (8.4-10.2); Carbon Dioxide 27 mmol/L (22-30); Chloride 105 mmol/L (98-107); Estimated Glomerular Filt Rate > 60; Glucose 96 mg/dL (65-110); Potassium 4.1 mmol/L (3.4-5.0); Sodium 138 mmol/L (137-145)
[2021-09-20 15:46] LABS: Percent Iron Saturation 12 % (20-50)
[2021-09-20 16:12] LABS: Ferritin 5.87 ng/mL (6.24-137)
[2021-09-20 16:44] LABS: Folic Acid 9.1 ng/mL (2.76->20)
== END 2021-09-20 14:21 | disposition home or self-care (01) ==
LOC: ANHLAB 14:21
PROVIDERS: PCP Nurse Practitioner Adult Health; Visit Provider Internal Medicine Hematology & Oncology
DX: D64.9 Anemia, unspecified (principal)
CPT/HCPCS: 36415; 80053; 82607; 82728; 82746; 83540; 83550; 85025

== ENCOUNTER 2023-05-20 01:38 | Day surgery (SDC) | payer OTHER, SELFPAY ==
[2023-05-12 15:09] VITALS: BMI 34.8
--- NOTE | 2023-05-12 15:10 | PC.NURSE ---
Report to the Outpatient Waiting Room, entrance under the green pavilion located off [facility], at time _0600_ on date _[id number]_. Planned Procedure Time: _0730_. Time changes happen often and if your time is changed the preop area will call you the afternoon before. - You and your visitor will be asked to self-screen and do not enter if you have any COVID symptoms. - A mask is optional within the hospital at this time. Patients may have clear liquids (water, carbonated beverages, clear teas, apple juice) until 3 hours prior to surgery with a maximum of 20 ounces. - No food from midnight until time of surgery Take the following medications with a SIP of water the morning of surgery: __Buspirone, Duloxetene and Celebrex DO NOT STOP ANY OF YOUR OTHER PRESCRIPTION MEDICATIONS PRIOR TO SURGERY ?EXCEPT THE FOLLOWING Medications to discontinue per physician All vitamins Date to take last [id number] Please no make-up, nail khmer, hairspray, perfume, deodorant, or body powder the day of surgery. No jewelry (including any body piercings) or valuables the day of surgery, leave them at home. Please take a shower or bath the night before, or the morning of, surgery with an antibacterial soap. Wear comfortable, loose fitting clothing. - Jewelry must be removed prior to entering the operating room. Rings and piercings that are not removed may be cut off. - The hospital will not accept responsibility for valuables. - Please leave all valuables, including medications, at home the day of surgery. If you are going home after surgery, a licensed automobile drivers must drive you home. - NO public transportation without another adult if you receive anesthesia. - We recommend that an adult stay with you for 24 hours following discharge. - We also recommend that you do not drive, make important decision, drink alcoholic beverages, or take any drugs that were not prescribed by your health care provider for at least 24 hours after your discharge time. Follow any additional instructions given to you from your surgeon. If you or anyone in your household have experienced Covid symptoms in the past week, please notify your surgeon or the nurse liaison at the phone number below for possible testing. Telephone instructions given to _Alea___and asked if any additional questions and then verbalized understanding. Patient advised to call surgeon office or pre surgery nurse liaison [phone] if any additional questions.
[2023-05-20] VITALS (10 sets, daily range): BP systolic 121–138; BP diastolic 60–87; PULSE 63–126; RESP 12–22; TEMP 36.6; O2SAT 96–100
[2023-05-20] MEDS: ACETAMINOPHEN 500 MG TABLET 1000 MG PO (06:20)
--- NOTE | 2023-05-20 06:55 | WPDANESEPPF ---
Anes - Initial Pre Proc Eval Procedure: Operation Date: 05/20/23 07:30 Proposed Procedures p Laparoscopic Right Ovarian Cystectomy, Bilateral Laparoscopic Salpingectomy, - Emily Whitfield MD s Hysteroscopy with Lexus Endometrial Ablation - Emily Whitfield MD Date/Time: 05/20/23 06:55 Surgeon: Emily Whitfield MD Pre Op Diagnosis: right ovary cyst, menorrhagia, Patient Data Age: 42 Gender: F Height: 1.57 m Weight: 86.4 kg Allergies Allergy/AdvReac Type Severity Reaction Status Date / Time Penicillins Allergy Severe Other Verified 05/20/23 06:18 egg Allergy Unknown ABDOMINAL Verified 05/20/23 06:18 PAIN Home Medications Medication Instructions Recorded Confirmed Type buspirone 5 mg tablet 5 mg PO BID 06/15/19 05/12/23 History duloxetine 60 mg capsule,delayed 60 mg PO DAILY 06/15/19 05/12/23 History release sprinkle meclizine 12.5 mg tablet 12.5 mg PO TID PRN dizziness #10 08/22/21 05/12/23 Rx tabs ondansetron 4 mg disintegrating 4 mg PO Q6H PRN nausea and 08/22/21 05/12/23 Rx tablet vomiting #10 tabs celecoxib 100 mg capsule 100 mg PO DAILY 10/16/21 05/12/23 History cholecalciferol (vitamin D3) 25 25 mcg PO DAILY 10/16/21 05/12/23 History mcg (1,000 unit) capsule magnesium 100 mg tablet 100 mg PO DAILY 10/16/21 05/12/23 History omeprazole 40 mg capsule,delayed 40 mg PO DAILY 10/16/21 05/12/23 History release sumatriptan succinate 50 mg tablet 50 mg PO DAILY PRN Migraine 10/16/21 05/12/23 History (Imitrex) Headache vitamin B complex 1 cap PO DAILY 10/16/21 05/12/23 History zolpidem 5 mg tablet 5 mg PO HS #30 tabs 05/06/23 05/12/23 Rx risankizumab-rzaa 150 mg/mL 150 mg subcut [id number] 05/12/23 05/12/23 History subcutaneous pen injector (Karen) Patient hx anesthesia problems: none Family hx anesthesia problems: none Results Review: All pre-operative results and documents have been reviewed as part of the pre-operative evaluation. [facility] Past Medical History Medical History Anemia Anxiety Depression Eczema Irritable bowel disease Migraine Psoriasis Surgical History Surgical History Hx of cholecystectomy Family History Family History Sibling Asthma Father Acute myocardial infarction Rheumatoid arthritis Cardiovascular disease Grandparent Cancer Asthma Cardiovascular disease Acute myocardial infarction Diabetes mellitus COPD (chronic obstructive pulmonary disease) Mother High cholesterol Cardiovascular disease Social History Social History Smoking packs per day: 1 Smoking cigarettes per day: 20.0 Years smoked: 11 Smoking pack-years: 11.00 Smoking status: Former smoker Tobacco type: cigarettes Smoking end date: 05/11/10 Alcohol intake: never Substance use: never Substance use type: does not use Lack of Transportation: No Lack of Food: Never True Current Housing: I Have Housing Concerned About Future Housing: No Difficulty Paying Gas/Electric Bills: No Difficulty Paying for Meds: No Currently Unemployed: No Education: Trade/Vocational Certificate Living arrangements: with family Gender identity (if verbalized by the patient): Female Spiritual care concerns: No Agree to blood products: Yes Anes - Eval Final PreProcedure Day of Procedure 05/20/23 06:55 Patient weight: obese Heart: regular rate and rhythm Lungs: clear to auscultation Airway: Mallampati scale class 1 Neurological: alert and oriented Last oral intake: >/= 8 hours ASA classification: III Emergent: no Anesthetic plan: proceed Anesthesia type and monitoring: general ETT and standard monitoring Results Review: All pre-operative results and documents have been reviewed as part of the pre-operative evaluation. Info
[2023-05-20] MEDS: KETOROLAC 15 MG/ML VIAL (*BKC) IV PUSH ×2 (07:14→10:42)
[2023-05-20] MEDS: LACTATED RINGERS 1,000 ML 30 ML IV CONT ×2 (07:14→08:40)
--- NOTE | 2023-05-20 07:19 | WPDHPUPDATE1 ---
History and Physical Update Update Date/Time: 05/20/23 07:19 procedure to include IUD removal History and Physical has been reviewed, including an updated exam of the patient. There are NO changes in the patient's condition. Risks, benefits, and alternatives have been discussed and questions answered. Patient agrees to proceed with procedure.
[2023-05-20] MEDS: fentaNYL CITRATE INJ (*CRX) 100 MCG/2 ML VIAL 25 MCG IV PUSH ×6 (08:51→09:33)
--- NOTE | 2023-05-20 09:10 | SUR.PHASEI ---
0909: Simple mask removed.
--- NOTE | 2023-05-20 09:24 | W.PM.PROC2 ---
Procedure Note - Detailed Date of Procedure 05/20/23 Pre-op Diagnosis right ovary cyst, menorrhagia, Post-op Diagnosis Same Procedure Performed Laparoscopic bilateral salpingectomy , ovarian cystectomy, endometrial ablation with hysteroscopy Surgeon Emily Whitfield MD Anesthesia General Indications Unwanted fertility, pelvic pain, ovarian cyst Findings 4 cm right ovarian cyst, otherwise normal pelvic anatomy, normal vulva, vagina, cervix, intrauterine cavity. Description of Procedure The patient was taken the operating room. She was prepped and draped in the dorsal lithotomy position after induction of general anesthesia. A 5 mm skin incision was made in the left upper quadrant of the abdominal skin. A 5 mm trocar was inserted the intra-abdominal cavity under direct visualization of the scope. Pneumoperitoneum was achieved. A 5 mm trocar was inserted in the left lower quadrant identical fashion. A 5 mm infraumbilical trocar was inserted in identical fashion as well. The bilateral fallopian tubes were removed. This was done by using a LigaSure cautery. The mesosalpinx adjacent to the tube was cauterized transected with LigaSure. This was initiated in the area the ovary and in a stepwise fashion moved medially to the area of the cornu of the uterus. Once there the fallopian tube was cauterized and transected. This was done in identical fashion on each side. The fallopian tubes were taken out through the left lower quadrant trocar site. Right ovarian cystectomy was performed using LigaSure cautery and blunt dissection. The ovarian cyst capsule was taken at the left lower trocar site. The pneumoperitoneum was reduced. The trocars removed. The skin was closed with subcuticular 4 Monocryl and covered with Dermabond. ?A speculum was placed in the vagina.? Cervix grasped with a tenaculum.? The cervix was dilated to about 1 cm.? The hysteroscope was inserted.? The above findings were noted.? Endometrial curettage was performed with a medium-size curette.? All surfaces of the endometrium were affected by the curettage.? The specimens were collected and sent to pathology.? Measurements were taken of the uterus and cervix.? The uterine length was then entered into the hand piece of the Lexus device.? The device was inserted into the intrauterine cavity.? The array of the device was expanded.? The balloon cuff was inflated.? A good seal was achieved.? The energy and safety cycles were initiated and completed.? The array was collapsed and the instrument was withdrawn after deflating the balloon cuff.? Hysteroscope was reinserted.? Above findings were noted. The hysteroscope was removed. The patient tolerated the procedure well.? The speculum and tenaculum were removed.? She was taken to recovery in stable condition.? Sponge lap and needle counts were correct x2.? Estimated Blood Loss 5 Drains No Packing No Pathology Yes Complications No immediate complications Condition Stable Disposition PACU
[2023-05-20] MEDS: oxyCODONE HCL (*CRX) 5 MG TAB IR PO (09:48)
== END 2023-05-20 11:27 | disposition home or self-care (01) ==
PROVIDERS: PCP Nurse Practitioner Adult Health; Visit Provider Obstetrics & Gynecology
PROC: (CPT 49320; principal; 2023-05-20 07:30)
PROC: 0U5B8ZZ Destruction of Endometrium, Via Natural or Artificial Opening Endoscopic (ICD-10-PCS; CPT 58563; 2023-05-20 07:30)
DX: Z30.2 Encounter for sterilization (principal); N83.8 Other noninflammatory disorders of ovary, fallopian tube and broad ligament; N92.0 Excessive and frequent menstruation with regular cycle; K21.9 Gastro-esophageal reflux disease without esophagitis; D64.9 Anemia, unspecified; F41.9 Anxiety disorder, unspecified; F32.A Depression, unspecified; K58.9 Irritable bowel syndrome, unspecified; L30.9 Dermatitis, unspecified; G43.909 Migraine, unspecified, not intractable, without status migrainosus; E66.9 Obesity, unspecified; Z68.34 Body mass index [BMI] 34.0-34.9, adult; Z90.49 Acquired absence of other specified parts of digestive tract; Z87.891 Personal history of nicotine dependence; Z80.9 Family history of malignant neoplasm, unspecified; Z82.49 Family history of ischemic heart disease and other diseases of the circulatory system; Z79.620 Long term (current) use of immunosuppressive biologic
CPT/HCPCS: 58661; 58662; 58563; 88304; A9270; J1100; J1170; J1596; J1885; J2250; J2405; J2704; J3010; J7120

== ENCOUNTER 2023-06-04 10:28 | Emergency (ER) | payer OTHER, SELFPAY ==
--- NOTE | 2023-06-04 10:36 | ECG_ITS ---
Measurements Intervals [place] Rate: 70 P: 42 [place]: 176 QRS: 70 QRSD: 89 T: 46 QT: 412 QTc: 447 Interpretive Statements SINUS RHYTHM LOW QRS VOLTAGE IN PRECORDIAL LEADS [QRS DEFLECTION < 1.0 mV IN CHEST LEADS] NONSPECIFIC T-WAVE ABNORMALITY BORDERLINE ECG COMPARED TO ECG 08/22/2021 16:28:06 NO SIGNIFICANT CHANGES Electronically Signed On 06-04-2023 14:48:04 CDT by Josias Cunningham M.D.
[2023-06-04 10:38] VITALS: BP 151/76; PULSE 76; RESP 20; TEMP 36.5; O2SAT 100
--- NOTE | 2023-06-04 10:56 | PC.NURSE ---
EKG REPEATED FROM 2 DUE TO MOVEMENT CAPTURED ON TRACING
--- NOTE | 2023-06-04 11:06 | ED.ARRPALP ---
HPI - Arrhythmia/Palpitations General Chief Complaint: Arrhythmia/Palpitations Stated Complaint: Heart Problem/Headache Time Seen by Provider: 06/04/23 11:06 Source: patient Mode of arrival: ambulatory Limitations: no limitations History of Present Illness HPI narrative: 43 y/o female with hx RA, lupus presented for c/o palpitations intermittently x2 weeks. Endorses associated nausea and dizziness. States she felt her pulse, and describes changes every 7-12 beats. Reports feeling even worse 3-4 days ago, laying around more and had an episode of vomiting. States sometimes she will feel better and have more energy to do household activities. Denies cough, sob, wheezing, urinary complaints, abdominal pain, or fever. Hx right salpingectomy, uterine ablation 05/18. Started doxy and Flagyl for concern for surgical site infection 05/27. Scheduled to f/u with Obgyn Dr Whitfield in 2 days. Related Data Home Medications Medication Instructions Recorded Confirmed buspirone 5 mg tablet 5 mg PO BID 06/15/19 06/04/23 duloxetine 60 mg capsule,delayed 60 mg PO DAILY 06/15/19 06/04/23 release sprinkle cholecalciferol (vitamin D3) 25 25 mcg PO DAILY 10/16/21 06/04/23 mcg (1,000 unit) capsule omeprazole 40 mg capsule,delayed 40 mg PO DAILY 10/16/21 06/04/23 release sumatriptan succinate 50 mg tablet 50 mg PO DAILY PRN Migraine 10/16/21 06/04/23 (Imitrex) Headache vitamin B complex 1 cap PO DAILY 10/16/21 06/04/23 risankizumab-rzaa 150 mg/mL 150 mg subcut [id number] 05/12/23 06/04/23 subcutaneous pen injector (Skyrizi) doxycycline hyclate 100 mg capsule 100 mg PO BID 06/04/23 06/04/23 leflunomide 10 mg tablet 10 mg PO DAILY 06/04/23 06/04/23 metronidazole 500 mg tablet 500 mg PO BID 06/04/23 06/04/23 Allergies Allergy/AdvReac Type Severity Reaction Status Date / Time Penicillins Allergy Severe Other Verified 06/04/23 11:07 egg Allergy Unknown ABDOMINAL Verified 06/04/23 11:07 PAIN Review of Systems Review of Systems: CONSTITUTIONAL: Denies body aches, fever, chills, or sweats. EYES: Denies visual changes, redness, or discharge. ENT: Denies rhinorrhea, congestion, sore throat, or otalgia. CARDIOVASCULAR: reports palpitations Denies chest pain, or edema. RESPIRATORY: Denies cough or dyspnea. GASTROINTESTINAL: reports nausea Denies abdominal pain, or diarrhea. GENITOURINARY: Denies dysuria or hematuria. SKIN: Denies rash, itching, or wounds. MUSCULOSKELETAL: Denies back pain, joint pain, or myalgia. NEUROLOGIC: reports dizziness Denies headache, numbness, tingling, or weakness. All systems reviewed & are unremarkable except as noted in HPI and below PMFSH Past Medical History Medical History Anemia Anxiety Depression Eczema Irritable bowel disease Lupus Migraine Psoriasis Psoriatic arthritis Surgical History Surgical History Hx of cholecystectomy Family History Family History Sibling Asthma Father Acute myocardial infarction Rheumatoid arthritis Cardiovascular disease Grandparent Cancer Asthma Cardiovascular disease Acute myocardial infarction Diabetes mellitus COPD (chronic obstructive pulmonary disease) Mother High cholesterol Cardiovascular disease Social History Social History Smoking packs per day: 1 Smoking cigarettes per day: 20.0 Years smoked: 11 Smoking pack-years: 11.00 Smoking status: Former smoker Tobacco type: cigarettes Smoking end date: 05/11/10 Alcohol intake: never Substance use: never Substance use type: does not use Lack of Transportation: No Lack of Food: Never True Current Housing: I Have Housing Concerned About Future Housing: No Difficulty Paying Gas/Electric Bills: No Difficulty Paying for Meds: No Currently Unemplo
== END 2023-06-04 11:35 | disposition short-term general hospital (02) ==
LOC: EXPBETH 10:31
PROVIDERS: Emergency Provider Nurse Practitioner Family; PCP Nurse Practitioner Adult Health
DX: R00.2 Palpitations (principal); Z87.891 Personal history of nicotine dependence; F41.9 Anxiety disorder, unspecified; L40.50 Arthropathic psoriasis, unspecified; L40.9 Psoriasis, unspecified
CPT/HCPCS: 93005; 99213; G0463

== ENCOUNTER 2023-06-04 12:12 | Emergency (ER) | payer OTHER, SELFPAY ==
--- NOTE | ~2023-06-04 | XR_ITS ---
EXAMINATION: XR chest 2V DATE: 06/04/2023 12:35 INDICATION: Heart palpitations. Nausea. TECHNIQUE: Frontal and lateral views of the chest were obtained. COMPARISON: None. FINDINGS: There is no pneumonia, pleural effusion, or pneumothorax. The heart size is normal. Surgica l clips in the right upper quadrant are likely from cholecystectomy. IMPRESSION: 1. No acute cardiopulmonary disease. Reviewed, dictated and finalized at location A.
--- NOTE | 2023-06-04 12:13 | ECG_ITS ---
Measurements Intervals [place] Rate: 73 P: 29 [place]: 170 QRS: 15 QRSD: 81 T: 32 QT: 385 QTc: 426 Interpretive Statements SINUS RHYTHM LOW-VOLTAGE QRS IN PRECORDIAL LEADS BORDERLINE ECG COMPARED TO ECG 06/04/2023 10:56:28 NO SIGNIFICANT CHANGES Electronically Signed On 06-04-2023 14:51:19 CDT by Josias Cunningham M.D.
[2023-06-04 12:20] VITALS: BP 141/88; PULSE 80; RESP 20; TEMP 36.4; O2SAT 99
[2023-06-04 12:36] LABS: Basophils Absolute Auto 0.1 K/mm3 (0.0-0.1); Basophils Percent Auto 0.9 % (0.2-1.2); Eosinophils Absolute Auto 0.6 K/mm3 (0-0.3); Eosinophils Percent Auto 8.3 % (0-4.4); Hematocrit 42.3 % (37.0-47.0); Hemoglobin 13.7 g/dL (12.0-15.0); Immature Granulocyte Absolute 0.02 K/mm3 (0.00-0.031); Immature Granulocyte Percent A 0.3 % (0-0.5); Lymphocytes Percent Auto 24.1 % (18.3-44.2); Mean Corpuscular HGB Conc 32.4 g/dl (32-36); Mean Corpuscular Hemoglobin 29.8 pg (26-34); Mean Corpuscular Volume 92.2 fl (80-100); Mean Platelet Volume 10.2 fl (7.4-10.4); Monocytes Absolute Auto 0.7 K/mm3 (0.1-0.6); Monocytes Percent Auto 10.1 % (2.6-8.5); Neutrophils Absolute Auto 3.7 K/mm3 (1.3-6.7); Neutrophils Percent Auto 56.3 % (45.5-73.1); Platelet Count Result 206 k/mm3 (150-375); Red Blood Count 4.59 M/mm3 (4.2-5.4); Red Cell Distribution Width 12.6 % (11.5-14.5); White Blood Count 6.6 K/mm3 (4.5-10.0)
[2023-06-04 12:45] LABS: Alanine Aminotransferase 84 U/L (6-35); Albumin Level 4.1 g/dL (3.5-5.1); Alkaline Phosphatase 55 U/L (38-126); Anion Gap 6 mmol/L (4-12); Aspartate Amino Transferase 75 U/L (14-36); Bilirubin,Total 0.5 mg/dL (0.2-1.3); Blood Urea Nitrogen 12 mg/dL (7-17); Calcium 9.4 mg/dL (8.4-10.2); Carbon Dioxide 27 mmol/L (22-30); Chloride 106 mmol/L (98-107); Estimated CRCL calculation 103 ml/min; Estimated Glomerular Filt Rate > 60; Glucose 92 mg/dL (65-110); Lipase 59 U/L (23-300); Potassium 3.8 mmol/L (3.4-5.0); Sodium 139 mmol/L (137-145)
[2023-06-04 12:56] LABS: Troponin I < 0.012 ng/mL (0.000-0.034)
[2023-06-04 13:03] LABS: Partial Thromboplastin Time 28.4 Seconds (22.3-36.8)
--- NOTE | 2023-06-04 13:45 | ED.ARRPALP ---
HPI - Arrhythmia/Palpitations General Chief Complaint: Arrhythmia/Palpitations Stated Complaint: herat palpitations/nausea Time Seen by Provider: 06/04/23 13:35 Source: patient and family ( ) Mode of arrival: ambulatory Limitations: no limitations History of Present Illness HPI narrative: Patient presents with palpitations. She notes that she has a history of this and previously was worked up with Cardiology (Dr Mistry) including an event monitor approximately 2 years ago. She had improved but then started becoming hyper aware of this occurring with increasing frequency and intensity ever since a recent OB Gyne procedure on 05/20/[address] Whitfield. This procedure was complicated by a postoperative infection for which she has been on doxycycline & metronidazole. She denies drinking alcohol in general but particularly not on these medications. Patient states she can feel it in throat. She has had increased frequency of stools as she had previously been constipated but is known having return of bowel movements per day. She had 1 episode of emesis does report feeling nauseated including currently. She denies any chest pain but does feel occasionally lightheaded. No lower extremity edema. She has head pressure and headache. She has a history of anemia and previously underwent iron infusions but not currently and has never required a blood transfusion. Patient takes leflunomide on immunosuppression prescribed by her enameler for her rheumatoid arthritis. She was told that she was meant to pause this while on antibiotics and has since done so. Related Data Home Medications Medication Instructions Recorded Confirmed buspirone 5 mg tablet 5 mg PO BID 06/15/19 06/04/23 duloxetine 60 mg capsule,delayed 60 mg PO DAILY 06/15/19 06/04/23 release sprinkle cholecalciferol (vitamin D3) 25 25 mcg PO DAILY 10/16/21 06/04/23 mcg (1,000 unit) capsule omeprazole 40 mg capsule,delayed 40 mg PO DAILY 10/16/21 06/04/23 release sumatriptan succinate 50 mg tablet 50 mg PO DAILY PRN Migraine 10/16/21 06/04/23 (Imitrex) Headache vitamin B complex 1 cap PO DAILY 10/16/21 06/04/23 risankizumab-rzaa 150 mg/mL 150 mg subcut [id number] 05/12/23 06/04/23 subcutaneous pen injector (Karen) doxycycline hyclate 100 mg capsule 100 mg PO BID 06/04/23 06/04/23 leflunomide 10 mg tablet 10 mg PO DAILY 06/04/23 06/04/23 metronidazole 500 mg tablet 500 mg PO BID 06/04/23 06/04/23 Allergies Allergy/AdvReac Type Severity Reaction Status Date / Time Penicillins Allergy Severe Other Verified 06/04/23 11:07 egg Allergy Unknown ABDOMINAL Verified 06/04/23 11:07 PAIN PMFSH Past Medical History Medical History (Updated 06/05/23 @ 00:03 by Pamella Garibay) Anemia Anxiety Depression Eczema Irritable bowel disease Lupus Migraine Psoriasis Psoriatic arthritis Rheumatoid arthritis Surgical History Surgical History (Updated 06/04/23 @ 13:47 by Annalisa Souza MD) H/O bilateral salpingectomy laproscopic w/ Dr Whitfield 05/20/23 H/O ovarian cystectomy Dr Whitfield 05/20/23 Hx of cholecystectomy Status post hysteroscopic ablation of endometrium 05/20/23; Dr Whitfield Family History Family History Sibling Asthma Father Acute myocardial infarction Rheumatoid arthritis Cardiovascular disease Grandparent Cancer Asthma Cardiovascular disease Acute myocardial infarction Diabetes mellitus COPD (chronic obstructive pulmonary disease) Mother High cholesterol Cardiovascular disease Social History Social History Smoking packs per day: 1 Smoking cigarettes per day: 20.0 Years smoked: 11 Smoking pack-years: 11.00 Smoking status: Former smoker Tobacco type: cigarettes Smoking end date: 05/11/10 Alcohol intake: never Substance use: never Substance use type: does not use Lack of Transportation: No [place]
[2023-06-04 14:01] VITALS: BP 141/85; PULSE 74; RESP 20; O2SAT 98
[2023-06-04 14:31] VITALS: BP 116/75; PULSE 82; RESP 16; O2SAT 97
[2023-06-04 14:33] LABS: D Dimer 0.38 ug/mL (<0.48)
[2023-06-04 14:53] LABS: Influenza A QL RT-PCR Negative (Negative); Influenza B QL RT-PCR Negative (Negative); RSV RNA, RT-PCR Negative (Negative); SARS-CoV-2 RNA PCR Negative (Negative)
[2023-06-04] MEDS: ASPIRIN 81 MG CHEWABLE TABLET 324 MG PO (14:55)
[2023-06-04] MEDS: ACETAMINOPHEN 500 MG TABLET 1000 MG PO (14:55)
[2023-06-04] MEDS: ONDANSETRON INJ 4 MG/2 ML VIAL IV PUSH (14:55)
--- NOTE | 2023-06-04 15:13 | ECG_ITS ---
Measurements Intervals [place] Rate: 69 P: 26 TX: 173 QRS: 40 QRSD: 82 T: 21 QT: 407 QTc: 437 Interpretive Statements SINUS RHYTHM COMPARED TO ECG 06/04/2023 12:18:46 NO SIGNIFICANT CHANGES Electronically Signed On 06-04-2023 15:54:35 CDT by Cleo Campa M.D.
[2023-06-04 15:35] LABS: Troponin I < 0.012 ng/mL (0.000-0.034)
[2023-06-04 15:55] VITALS: BP 119/78; PULSE 70; RESP 16; O2SAT 99
== END 2023-06-04 15:55 | disposition home or self-care (01) ==
PROVIDERS: Emergency Medicine; Emergency Provider Student in an Organized Health Care Education/Training Program; PCP Nurse Practitioner Adult Health
DX: R00.2 Palpitations (principal); R74.01 Elevation of levels of liver transaminase levels; F41.9 Anxiety disorder, unspecified; M32.9 Systemic lupus erythematosus, unspecified; Z20.822 Contact with and (suspected) exposure to COVID-19; Z87.891 Personal history of nicotine dependence
CPT/HCPCS: 36415; 71046; 80053; 83690; 83735; 84484; 85025; 85380; 85610; 85730; 87637; 93005; 96374; 99284; A9270; J2405

== ENCOUNTER 2023-06-09 12:23 | Outpatient (CLI) | payer OTHER, SELFPAY ==
[2023-06-09 20:37] LABS: Hematocrit 43.8 % (37.0-47.0); Mean Corpuscular Hemoglobin 29.8 pg (26-34); Mean Corpuscular Volume 93.2 fl (80-100); Mean Platelet Volume 10.6 fl (7.4-10.4); Platelet Count Result 238 k/mm3 (150-375); White Blood Count 6.8 K/mm3 (4.5-10.0)
[2023-06-09 20:55] LABS: Alanine Aminotransferase 51 U/L (6-35); Albumin Level 4.3 g/dL (3.5-5.1); Alkaline Phosphatase 60 U/L (38-126); Aspartate Amino Transferase 56 U/L (14-36); Bilirubin,Total 0.4 mg/dL (0.2-1.3)
[2023-06-09 20:57] LABS: Anion Gap 8 mmol/L (4-12); Blood Urea Nitrogen 14 mg/dL (7-17); Calcium 9.4 mg/dL (8.4-10.2); Carbon Dioxide 23 mmol/L (22-30); Chloride 105 mmol/L (98-107); Estimated Glomerular Filt Rate > 60; Glucose 83 mg/dL (65-110); Potassium 4.3 mmol/L (3.4-5.0); Sodium 136 mmol/L (137-145)
== END 2023-06-09 12:24 | disposition home or self-care (01) ==
LOC: ANHBWCLAB 12:26
PROVIDERS: PCP Nurse Practitioner Adult Health; Visit Provider Nurse Practitioner Adult Health
DX: R10.30 Lower abdominal pain, unspecified (principal); R74.8 Abnormal levels of other serum enzymes
CPT/HCPCS: 36415; 80048; 80076; 85027

== ENCOUNTER 2023-06-12 12:44 | Outpatient (CLI) | payer OTHER, SELFPAY ==
--- NOTE | ~2023-06-12 | US_ITS ---
Pelvic ultrasound. Clinical History: Pelvic pain Technique: Realtime transabdominal scanning of the pelvis was performed. Color flow Doppler and Doppl er spectral analysis were performed. Findings: The uterus is anteverted. The endometrial stripe has a thickness of 4 mm. No focal mass is identified. The right ovary is not visualized. No significant right ovarian or adnexal mass is seen. The left ovary measures 2.2 x 2.1 x 3.4 cm. No significant left ovarian or adnexal mass is seen. There is no evidence of free fluid in the cul de sac. Impression: No significant abnormality seen. Right ovary not visualized. Reviewed, dictated and finalized at location . Impression: No significant abnormality seen. Right ovary not visualized.
== END 2023-06-12 12:45 ==
LOC: GOSHIMG 12:44
PROVIDERS: PCP Nurse Practitioner Adult Health; Visit Provider Nurse Practitioner Adult Health
DX: R10.30 Lower abdominal pain, unspecified (principal)
CPT/HCPCS: 76856

== ENCOUNTER 2023-12-29 08:03 | Outpatient (CLI) | payer OTHER, SELFPAY ==
--- NOTE | ~2023-12-29 | XR_ITS ---
EXAMINATION: XR abdomen/kub 1V DATE: 12/29/2023 08:21 INDICATION: Diarrhea, unspecified. TECHNIQUE: A supine view of the abdomen on 2 radiographs was obtained. COMPARISON: CT abdomen and pelvis 06/22/2021 FINDINGS: There are no dilated loops of bowel. There is a paucity of stool in the colon. Surgical cli ps in the right upper quadrant are likely from cholecystectomy. IMPRESSION: 1. Normal bowel gas pattern. Reviewed, dictated and finalized at location []
[2023-12-29 18:29] LABS: Hematocrit 42.7 % (37.0-47.0); Hemoglobin 13.8 g/dL (12.0-15.0); Mean Corpuscular HGB Conc 32.3 g/dl (32-36); Mean Corpuscular Hemoglobin 30.6 pg (26-34); Mean Corpuscular Volume 94.7 fl (80-100); Mean Platelet Volume 11.3 fl (7.4-10.4); Platelet Count Result 227 k/mm3 (150-375); Red Blood Count 4.51 M/mm3 (4.2-5.4); Red Cell Distribution Width 12.8 % (11.5-14.5); White Blood Count 5.9 K/mm3 (4.5-10.0)
[2023-12-29 18:40] LABS: Alanine Aminotransferase 23 U/L (6-35); Albumin Level 4.3 g/dL (3.5-5.1); Alkaline Phosphatase 52 U/L (38-126); Anion Gap 10 mmol/L (4-12); Aspartate Amino Transferase 66 U/L (14-36); Bilirubin,Total 0.4 mg/dL (0.2-1.3); Blood Urea Nitrogen 13 mg/dL (7-17); Calcium 9.1 mg/dL (8.4-10.2); Carbon Dioxide 29 mmol/L (22-30); Chloride 103 mmol/L (98-107); Cholesterol 169 mg/dL (0-200); Estimated Glomerular Filt Rate > 60; Glucose 77 mg/dL (65-110); HDL Direct 38 mg/dL; Potassium 4.2 mmol/L (3.4-5.0); Sodium 142 mmol/L (137-145); Triglycerides 134 mg/dL (<150)
[2023-12-29 18:50] LABS: LDL Cholesterol Direct 92 mg/dL
== END 2023-12-29 08:04 | disposition home or self-care (01) ==
LOC: ANHBWCLAB 08:05
PROVIDERS: PCP Nurse Practitioner Adult Health; Visit Provider Nurse Practitioner Adult Health
DX: Z13.9 Encounter for screening, unspecified (principal); R19.7 Diarrhea, unspecified
CPT/HCPCS: 36415; 74018; 80053; 80061; 84443; 85027

== ENCOUNTER 2023-12-30 07:16 | Outpatient (CLI) | payer OTHER, SELFPAY | END 2023-12-30 07:17 | disposition home or self-care (01) | LOC: ANHBWCLAB 07:17 | PROVIDERS: PCP Nurse Practitioner Adult Health; Visit Provider Nurse Practitioner Adult Health | DX: R19.7 Diarrhea, unspecified (principal) | CPT/HCPCS: 87045; 87427; 87449 ==

== ENCOUNTER 2024-12-06 10:15 | Day surgery (SDC) | payer OTHER, SELFPAY ==
--- OUTSIDE RECORDS SUMMARY | 2018-07-23 | XMS_ITS | Encounter Summary ---
Author Organization [facility] Healthcare Address [address] [place] [address] Care Team Providers Care Activity Coordinator Name Role Phone Belen Bella NP Primary Care Provider [phone] Reason for Visit * Diagnostic Imaging (Routine) - Closed Specialty Diagnoses / Procedures Referred By Contestefany hopper Referred To Contact Procedures Breast Imaging Screening Outside Reference Angela Vaughan NP Phone: tel: fax: Referral ID Status Reason Start Date Expiration Date Visits Re quested Visits Authorized [id number] Closed 06/20/2022 07/20/2023 1 1 Encounter Details Date Type Department Care Team (Late st Contact Info) Description 07/23/2018 Hospital Encounter [facility] [address] [place] [address] Social History Tobacco Use Types [...] on file 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 There will be no report generated by a [facility] Radiologist. Narrative [facility] - 06/20/2022 8:56 AM CDT EXAMINATION: Images For Reference Purposes Only us Angela Vaughan NP IMG MAMMO PROCEDURES Final Result [facility] documented in this encounter Visit Diagnoses Not on filedocumented in this encounter Care Teams Activity Coordinator Relationship Specialty Start Date End Date Belen Bella NP PCP - General 12/30/17 06/14/19 documented as of this encounter
--- OUTSIDE RECORDS SUMMARY | 2019-08-31 | XMS_ITS | Encounter Summary ---
Author Organization [facility] Healthcare Address [address] [place] [address] Care Team Providers Care Dry Room Attendant Name Role Phone No, Physician Primary Care Provider [phone] Reason for Visit * Diagnostic Imaging (Routine) - Closed Specialty Diagnoses / Procedures Referred By Jim hopper Referred To Contact Procedures Breast Imaging Screening Outside Reference Angela Vaughan NP Phone: tel: fax: Referral ID Status Reason Start Date Expiration Date Visits Re quested Visits Authorized [id number] Closed 06/20/2022 07/20/2023 1 1 Encounter Details Date Type Department Care Team (Late st Contact Info) Description 08/31/2019 Hospital Encounter [facility] Radiology [facility] [address] [place], [place] [id number] Social History Tobacco Use Types Packs/Day Years [...] on file 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 Radiology. There will be no report generated by a [facility] Radiologist. Narrative [facility] - 06/20/2022 8:54 AM CDT EXAMINATION: Images For Reference Purposes Only us Angela Vaughan NP IMG MAMMO PROCEDURES Final Result [facility] documented in this encounter Visit Diagnoses Not on filedocumented in this encounter Care Teams Dry Room Attendant Relationship Specialty Start Date End Date No, Physician PCP - General 06/16/19 09/29/21 documented as of this encounter
--- OUTSIDE RECORDS SUMMARY | 2019-09-09 | XMS_ITS | Encounter Summary ---
Author Organization [facility] Healthcare Address [address] [place] [address] Care Team Providers Care Interpersonal Communications Professor Name Role Phone No, Physician Primary Care Provider [phone] Reason for Visit * Diagnostic Imaging (Routine) - Closed Specialty Diagnoses / Procedures Referred By Jim hopper Referred To Contact Procedures Breast Imaging US Outside Reference Angela Vaughan NP Phone: tel: fax: Referral ID Status Reason Start Date Expiration Date Visits Re quested Visits Authorized [id number] Closed 06/20/2022 07/20/2023 1 1 Encounter Details Date Type Department Care Team (Late st Contact Info) Description 09/09/2019 Hospital Encounter [facility] Radiology [facility] [address] [place] [address] Social History Tobacco Use Types [...] on file 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 There will be no report generated by a [facility] Radiologist. Narrative RAD_MAMMO[facility] - 06/20/2022 8:54 AM CDT EXAMINATION: Images For Reference Purposes Only us Angela Vaughan NP IMG MAMMO PROCEDURES Final Result [facility] documented in this encounter Visit Diagnoses Not on filedocumented in this encounter Care Teams Interpersonal Communications Professor Relationship Specialty Start Date End Date No, Physician PCP - General 06/16/19 09/29/21 documented as of this encounter
--- OUTSIDE RECORDS SUMMARY | 2019-09-09 00:05 | XMS_ITS | Encounter Summary ---
Author Organization [facility] Healthcare Address [address] [place] [address] Care Team Providers Care Insurance Claims Adjuster Name Role Phone No, Physician Primary Care Provider [phone] Reason for Visit * Diagnostic Imaging (Routine) - Closed Specialty Diagnoses / Procedures Referred By Jim hopper Referred To Contact Procedures Breast Imaging Diagnostic Outside Reference Angela Vaughan NP Phone: tel: fax: Referral ID Status Reason Start Date Expiration Date Visits Re quested Visits Authorized [id number] Closed 06/20/2022 07/20/2023 1 1 Encounter Details Date Type Department Care Team (Late st Contact Info) Description 09/09/2019 12:05 AM CDT Hospital Encounter [facility] Radiology [facility] [address] [place] [address] Social History Tobacco Use Types [...] on file 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 There will be no report generated by a [facility] Radiologist. Narrative RAD_M[facility]MO[facility] - 06/20/2022 8:54 AM CDT EXAMINATION: Images For Reference Purposes Only us Angela Vaughan NP IMG MAMMO PROCEDURES Final Result [facility] documented in this encounter Visit Diagnoses Not on filedocumented in this encounter Care Teams Insurance Claims Adjuster Relationship Specialty Start Date End Date No, Physician PCP - General 06/16/19 09/29/21 documented as of this encounter
[2024-11-24 14:14] VITALS: BMI 35.3
[2024-11-26 13:48] VITALS: BMI 35.3
[2024-12-06 10:53] VITALS: BMI 34.4
[2024-12-06 10:54] VITALS: BP 118/81; PULSE 80; RESP 16; TEMP 37; O2SAT 98
[2024-12-06] MEDS: LACTATED RINGERS 1,000 ML 150 ML IV CONT (11:10)
--- NOTE | 2024-12-06 11:31 | WPDANESEPPF ---
Anes - Initial Pre Proc Eval Procedure: Operation Date: 12/06/24 12:00 Proposed Procedures p Diagnostic Colonoscopy - Talon Monsalve MD Date/Time: 12/06/24 11:31 Surgeon: Talon Monsalve MD Pre Op Diagnosis: Unspecified abnormal finding in specimens from ot Patient Data Age: 44 Gender: F Height: 1.57 m Weight: 85.3 kg Last Vital Signs Temp 98.6 F 12/06/24 10:54 Pulse 80 12/06/24 10:54 Resp 16 12/06/24 10:54 BP 118/81 12/06/24 10:54 Pulse Ox 98 12/06/24 10:54 O2 Del Method Room Air 12/06/24 10:54 Allergies Allergy/AdvReac Type Severity Reaction Status Date / Time Penicillins Allergy Severe Other Verified 12/06/24 10:40 egg Allergy Unknown ABDOMINAL Verified 12/06/24 10:40 PAIN Home Medications ?Medication ?Instructions ?Recorded ?Confirmed ?Type cholecalciferol (vitamin D3) 25 25 mcg PO DAILY 10/16/21 12/06/24 History mcg (1,000 unit) capsule vitamin B complex 1 cap PO DAILY 10/16/21 12/06/24 History leflunomide 10 mg tablet 10 mg PO DAILY 06/04/23 12/06/24 History clobetasol 0.05 % topical ointment 1 applic topical BID #60 grams 07/10/23 12/06/24 Rx duloxetine 60 mg capsule,delayed 60 mg PO DAILY #90 caps 04/20/24 12/06/24 Rx release sprinkle zolpidem 5 mg tablet 5 mg PO QHS PRN insomnia #90 tabs 08/31/24 12/06/24 Rx omeprazole 40 mg capsule,delayed See Rx Instructions .Route 09/09/24 12/06/24 Rx release .COMPLEX #60 caps buspirone 5 mg tablet See Rx Instructions .Route 10/04/24 12/06/24 Rx .COMPLEX #180 tabs upadacitinib 15 mg tablet,extended 15 mg PO DAILY 11/10/24 12/06/24 History release 24 hr (Rinvoq) Patient hx anesthesia problems: none Family hx anesthesia problems: none Results Review: All pre-operative results and documents have been reviewed as part of the pre-operative evaluation. [facility] Past Medical History Medical History Rheumatoid arthritis Psoriatic arthritis Lupus Eczema Anemia Anxiety Depression Migraine Irritable bowel disease Psoriasis Surgical History Surgical History Status post hysteroscopic ablation of endometrium 05/20/23; Dr Whitfield H/O ovarian cystectomy Dr Whitfield 05/20/23 H/O bilateral salpingectomy laproscopic w/ Dr Whitfield 05/20/23 Hx of cholecystectomy Family History Family History Sibling Asthma Father Acute myocardial infarction Rheumatoid arthritis Cardiovascular disease Grandparent Cancer Asthma Cardiovascular disease Acute myocardial infarction Diabetes mellitus COPD (chronic obstructive pulmonary disease) Mother High cholesterol Cardiovascular disease Social History Social History Smoking packs per day: 1 Smoking cigarettes per day: 20.0 Years smoked: 11 Smoking pack-years: 11.00 Smoking status: Former smoker Tobacco type: cigarettes Smokeless tobacco user: chewing tobacco Smoking end date: 05/11/10 Alcohol intake: never Substance use: never Substance use type: does not use Lack of Transportation: No Lack of Food: Never True Current Housing: I Have Housing Concerned About Future Housing: No Difficulty Paying Gas/Electric Bills: No Difficulty Paying for Meds: No Currently Unemployed: No Education: Trade/Vocational Certificate Living arrangements: with family Gender identity (if verbalized by the patient): Female Spiritual care concerns: No Agree to blood products: Yes Anes - Eval Final PreProcedure Day of Procedure 12/06/24 11:31 Heart: regular rate and rhythm Lungs: clear to auscultation Airway: Mallampati scale class 1 Neurological: alert and oriented ASA classification: II Anesthetic plan: proceed Anesthesia type and monitoring: monitored anesthesia care Results Review: All pre-operative results and documents have been reviewed as part of the pre-operative evaluation. Informed Consent: The patient's anesthetic plan and its attendant risks and benefits were discussed with the patient/family/POA. Questions were solicited and answers provided to the satisfaction of the patient/family/POA.
--- OUTSIDE RECORDS SUMMARY | 2024-12-06 11:34 | XMS_ITS | Encounter Summary ---
Author Organization [facility] Address [address] [place] [address] Care Team Providers Care Upsetter Setter Up Name Role Phone Nidhi Peck MD Primary Care Provider [phone] Belen Bella Primary Care Provider + Nidhi Peck MD Primary Care Provider [phone] Belen Bella Primary Care Provider + Dwait Mayorga MD Primary Care Provider + [phone] Belen Bella Primary Care Provider + Encounter Details Date Type Department Care Team (Late st Contact Info) Description 11/16/2018 Lab Requisition [facility] [address] [place] [phone] Goff DO [address] [facility] [address] [place] [address] Social History Tobacco Use Types Packs/Day Years Used Date Smoking Tobacco: Former Cigarettes Smokeless Tobacco: Never Alcohol Use Standard Drinks/Week Comments No 0 (1 standard drink = 0.6 oz pur e alcohol) Comments Unknown Sex and Gender Information Value Date Recorded Sex Assigned at Female 07/10/2020 8:48 AM CDT Legal Sex Female 2:15 PM COAT BASTER Gender Identity Female 07/10/2020 8:48 AM CDT Sexual Orientation Not on file documented as of this encounter Plan of Treatment Upcoming Encounters Date Type Department Care Team (Late st Contact Info) Description 02/02/2025 3:20 PM COAT BASTER Office Visit [facility] - Rheumatology [address], [address] [place] [address] Chantelle Forbes MD [address] [place] [address] documented as of this encounter Procedures Procedure Name Priority Date/Time Associated Diagnosis Comments DERMATOPATH TECHNICAL REPORT Routine 11/16/2018 12:00 AM CDT documented in this encounter Results * DERMATOPATH TECHNICAL REPORT (11/16/2018 12:00 AM CDT) Case Report Dermatopathology Report Case: [id number] Authorizing Provider: Ave Goff DO Collected: 11/16/2018 12:00 AM Ordering Location: [facility] Received: 11/16/2018 12:06 PM Pathologist: Johana Adame MD Specimen: Skin, right ankle 9 1:43 PM CDT DERMATOPATHOLOGY LABORATORY Addendum 1 At the request of the diagnosing physician, the technical component for GMS was performed by [facility] Dermatopathology Laboratory. 9 1:43 PM CDT DERMATOPATHOLOGY LABORATORY Addendum electronically signed by Johana Adame MD on 11/18/2018 at 1343 CDT Clinical History Pso vs acd vs dyshidroses 9 1:43 PM CDT DERMATOPATHOLOGY LABORATORY Gross Description Specimen A: Received is one formalin filled container labeled with the patient's name and designated right ankle. The specimen consists of a shave biopsy measuring 9x7x2 mm. Jar 0. [facility]ermat[facility] performed the technical component only. 9 1:43 PM CDT DERMATOPATHOLOGY LABORATORY Embedded Images 1:43 PM CDT DERMATOPATHOLOGY LABORATORY DISCLAIMER An external and internal positive and negative controls are appropriate for the histochemical, immunohistochemical and immunofluorescence stain(s) in this case (if any), except where stated explicitly. The performance characteristics of the stain(s) cited in this report were developed and its performance characteristic determined by the Dermatopathology Laboratory at [facility], directed by Dr. Mike Pérez. These tests need not be, and therefore are not, approved by the [place] Food and Drug Administration. The tests are used for clinical purposes. 9 1:43 PM CDT DERMATOPATHOLOGY LABORATORY at 1339 CDT Pathology/Cytolog y TISSUE SPECIMEN FROM SKIN / Unknown 11/16/2018 11/16/2018 12:[address] Goff DO LAB - PATHOLOGY/CYTOLOGY ORDERABLES Edited Result - Final DERMATOPATHOLOGY LABORATORY [facility] - Department of Dermatology [address] [place] [address], 5th Floor Lab [address] [phone] documented in this encounter Visit Diagnoses Not on filedocumented in this encounter Care Teams Upsetter Setter Up Relationship Specialty Start Date End Date Nidhi Peck MD PCP - General 10/10/11 03/16/19 Belen Bella APRN-SLOT OPERATIONS DIRECTOR [address] [address] PCP - General Nurse Practitioner 03/17/19 12/04/20 Nidhi Peck MD PCP - General 12/05/20 07/01/21 Belen Bella APRN-SLOT OPERATIONS DIRECTOR [address] [place] [phone] PCP - General Nurse Practitioner 07/02/21 04/30/22 Dawit Mayorga MD [address] [place] [phone] PCP - General Family Medicine 05/01/22 02/09/23 Belen Bella APRN-SLOT OPERATIONS DIRECTOR [address] [place] [address] PCP - General Nurse Practitioner 02/10/23 documented as of this encounter
--- OUTSIDE RECORDS SUMMARY | 2024-12-06 11:34 | XMS_ITS | Clinical Summary ---
Author Organization [facility] Azul Nicholson Address [address] [place] [address] Care Team Providers Care Department Head College Or [employer] Name Role Phone Unavailable Primary Care Provider Unavailabl e Allergies Active Allergy Reactions Criticality Noted Date Comments Egg Other (See Comments) Low 09/20/2021 Severe abd pain. Penicillins Unknown 03/17/2019 As a kid. Medications celecoxib (CeleBREX) 100 mg capsule 2 Active certolizumab Pegol (Cimzia) 400 mg/2 mL (200 mg/mL x 2) Syringe Kit INJECT 400MG (2 SYRINGES) SUBCUTANEOUSLY EVERY 4 WEEKS 1 Active cholecalcifero l, Vitamin D3, 50 mcg (2,000 unit) Tablet Take 2,000 Units by mouth daily. Active DULoxetine (CYMBALTA) 60 mg Capsule, Delayed Release(E.C.) 2 Active omeprazole (PriLOSEC) 40 mg Capsule, Delayed Release(E.C.) 2 Active SUMAtriptan (IMITREX) 50 mg tablet sumatriptan 50 mg tablet Take 1 po at onset of headache - may repeat dose in 2 hours if headache remains - no more than 2 in 24 hour period Active zolpidem (AMBIEN) 5 mg tablet 2 Active magnesium oxide 500 mg Capsule Take 500 mg by mouth daily. Active ferrous sulfate (SLOW RELEASE IRON) 142 mg (45 mg iron) Tablet Sustained Release Take 142 mg by mouth. Active Active Problems Problem Noted Date Diagnosed Date Iron deficiency anemia 09/20/2021 Family History Medical History Relation Name Comments Heart Disease Father Heart Disease Mother Relation Name Status Comments Brother Alive Father Alive Mother Alive Social History Tobacco Use Types Packs/Day Years Used Date Smoking Tobacco: Never Tobacco Cessation:Counseling Given: Not Answered Alcohol Use Standard Drinks/Week Comments Yes 0 (1 standard drink = 0.6 oz pur e alcohol) Comments Unknown Sex and Gender Information Value Date Recorded Sex Assigned at Not on file Legal Sex Female 1:15 PM CDT Gender Identity Not on file Sexual Orientation Not on file Last Filed Vital Signs Vital Sign Reading Time Taken Comments Blood Pressure 137/87 03/05/2022 1:12 PM BENCH INSPECTOR Pulse 95 03/05/2022 1:12 PM BENCH INSPECTOR Temperature 36.7 C (98 F) 03/05/2022 1:12 PM BENCH INSPECTOR Respiratory Rate 14 03/05/2022 1:12 PM BENCH INSPECTOR Oxygen Saturation 97% 03/05/2022 1:12 PM BENCH INSPECTOR Inhaled Oxygen Concentration - - Weight 85.3 kg (188 lb) 03/05/2022 1:12 PM BENCH INSPECTOR Height 157.5 cm (5' 2) 11/29/2021 1:05 PM CDT Body Mass Index 34.39 11/29/2021 1:05 PM CDT Plan of Treatment Health Maintenance Due Date Last Done Comments DTAP/TDAP/TD VACCINES (1 - Tdap) 1997 HEPATITIS B VACCINES (1 of 3 - 19+ 3-dose series) 1997 HPV/Cotest (21-29) 05/24/1999 HPV/Cotest (30-65) 2008 BREAST CANCER SCREENING 2018 COLORECTAL SCREENING 05/24/2023 Colorectal Cancer Screening 05/24/2023 FIT-DNA Q 3 years 05/24/2023 FIT/FOBT Q 1 year 05/24/2023 Flex Sig/CT Colonography Q 5 years 05/24/2023 CERVICAL CANCER SCREENING 07/27/2024 PAP SMEAR 07/27/2024 07/27/2021 INFLUENZA VACCINE (#1) 2024 COVID-19 Vaccine (3 - 2024-2 6 season) 2024 05/10/2020, 05/08/2020 HPV VACCINES Aged Out No longer eligi ble based on patient's age to complete this topic Insurance
--- OUTSIDE RECORDS SUMMARY | 2024-12-06 11:34 | XMS_ITS | Clinical Summary ---
Author Organization [facility] Address [address] [place] [address] Care Team Providers Care Silviculturist Name Role Phone Belen Bella RENU-AUDIOPROSTHOLOGIST Primary Care Provider + Source Comments [facility],non-owned Affiliates and Associated Physician Practices is amultiple site organization consisting of ambulatory clinics and hospital sitesin [place], [place], [place] and [place]. This disclosure is being madepursuant to the Care Everywhere program and may not contain all information available regarding this patient. Last updated 17.[facility] Allergies Active Allergy Reactions Criticality Noted Date Comments Egg Solids, Whole Other Low 09/20/2021 Severe abd pain. Penicillins Unknown 03/17/2019 Medications * Be aware that medications may not be up to date on this document. Alwaysverify current medications with the patient. DULoxetine (CYMBALTA) 60 MG capsule Take 1 (one) capsule by mouth every 24 hours 8 Active zolpidem (AMBIEN) 5 MG tablet Take 1 (one) tablet by mouth every 24 hours 8 Active busPIRone (BUSPAR) 5 MG tablet 0 Active clobetasol (TEMOVATE) 0.05 % ointment 0 Active magnesium 500 MG tablet Take 1 (one) tablet by mouth once daily Active ondansetron, disintegrating, (Zofran ODT) 4 MG tablet as needed 2 Active Cyanocobalamin (Vitamin B-12) 50 MCG Take 10 (ten) tablets by mouth once daily Active [place]-3 Fatty Acids (fish oil) 1000 MG capsule Take 1 (one) capsule by mouth once daily Active Cholecalciferol (Vitamin D-3) 25 MCG (1000 UT) Take 25 Units by mouth once daily Active bifantis (Align) capsule Take 1 (one) capsule by mouth once daily Active famotidine (Pepcid) 40 MG tablet Take 1 (one) tablet by mouth once daily Active metoprolol succinate XL 24hr (Toprol XL) 25 MG tablet metoprolol succinate 25 mg tablet extended release 24 hr 4 Active betamethasone dipropionate augmented (Diprolene) 0.05 % ointment Apply to affected area 2 times daily 50 g 3 4 Active PreviDent 5000 Plus 1.1 % 3 Active terbinafine (LamISIL) 250 MG tabletIndication s:Rash and other nonspecific skin eruption TAKE 1 (ONE) TABLET BY MOUTH ONCE DAILY 42 tablet 4 Active tirzepatide (Zepbound) 5 MG/0.5ML injection 4 Active Tapinarof (Vtama) 1 % CREAIndications: Other psoriasis 1 Application by Apply externally route 2 times daily as needed as needed for itching. 30 day supply. 60 g 11 4 Active halobetasol (Ultravate) 0.05 % cream Apply to rashes on elbows, feet, ankles twice daily prn. Use for only 2 weeks of each month. 30 days supply. 50 g 11 4 Active valACYclovir (Valtrex) 1 GM tablet Take 1 (one) tablet by mouth 2 times daily . For lip lesions. 4 tablet 4 Active hydroxychloroqui ne (Plaquenil) 200 MG tabletIndication s:Inflammatory arthritis TAKE 1 (ONE) TABLET BY MOUTH TWO (2) TIMES DAILY 180 tablet 1 5 Active celecoxib (CeleBREX) 100 MG capsuleIndicatio ns:Seronegative rheumatoid arthritis (HCC) TAKE ONE (1) CAPSULE BY MOUTH TWO (2) TIMES DAILY NEEDED 180 capsule 5 Active omeprazole (PriLOSEC) 40 MG capsule Take 1 (one) capsule by mouth daily before breakfast 5 Active upadacitinib ER (Rinvoq) 15 MG tabletIndication s:Psoriatic arthritis (HCC) Take 1 (one) tablet by mouth once daily 30 tablet 5 5 Active leflunomide (Arava) 10 MG tabletIndication s:Inflammatory arthritis TAKE 1 (ONE) TABLET BY MOUTH ONCE DAILY 90 tablet 5 Active Active Problems Problem Noted Date Diagnosed Date Iron deficiency anemia 09/20/2021 Seronegative rheumatoid arthritis 08/01/2019 Positive antinuclear antibody 11/17/2017 Eczema 10/16/2017 Other psoriasis 04/11/2016 Major depressive disorder, single episode 2011 Encounters Date Type Department Care Team Description 10/25/2024 Results Follow-Up [facility] Rheumatology [address] [place] [address], [address] [place] [phone] Chantelle Forbes MD 10/20/[address], [address] [place] [phone] Chantelle Forbes MD Refill Request 10/04/2024 Refill [facility] Rheumatology [address] [place] [address] Chantelle Forbes MD Refill Request (Rinvoq) 10/04/[address], [address] [place] [phone] Chantelle Forbes MD Medication Prior Auth Request 09/22/2024 3:20 PM CDT Office Visit [address], [address] [place] [address] Chantelle Forbes MD Abnormal LFTs (Primary Dx); Psoriatic arthritis (HCC) from Last 3 Months Immunizations Immunization Administration Dates Next Due Td (Adult), 2 Lf Tetanus Toxoid, Adsorbed, Pf Family History Medical History Relation Name Comments None Known Brother Status: Alive Arthritis - Rheumatoid Father lving ; Status: Alive Cancer Maternal Grandfather thoat; Status: Cancer Maternal Grandmother d, apastic anemia; Status: High Cholesterol Mother on statins Hypertension Mother living; Status: Alive CAD (Coronary Artery Disease) Paternal Grandfather ; Status: Aneurysm Paternal Grandmother brain, aorta Diabetes Paternal Grandmother d; Status: Heart Failure Paternal Grandmother Relation Name Status Comments Brother Father Maternal Grandfather Maternal Grandmother Mother Paternal Grandfather Paternal Grandmother Social History Tobacco Use Types Packs/Day Years Used Date Smoking Tobacco: Former Cigarettes Smokeless Tobacco: Never Tobacco Cessation:Counseling Given: Not Answered Alcohol Use Standard Drinks/Week Comments No 0 (1 standard drink = 0.6 oz pur e alcohol) PHQ-2 Answer Date Recorded PHQ2 TOTAL SCORE 0 05/01/2022 Comments Unknown Sex and Gender Information Value Date Recorded Sex Assigned at Female 07/10/2020 8:48 AM CDT Legal Sex Female 2:15 PM RETAIL PRESENTATION SPECIALIST Gender Identity Female 07/10/2020 8:48 AM CDT Sexual Orientation Not on file Last Filed Vital Signs Vital Sign Reading Time Taken Comments Blood Pressure 120/80 09/22/2024 3:28 PM CDT Pulse 82 09/22/2024 3:28 PM CDT Temperature 36.3 C (97.4 F) 09/22/2024 3:28 PM CDT Respiratory Rate 16 09/22/2024 3:28 PM CDT Oxygen Saturation 97% 09/22/2024 3:28 PM CDT Inhaled Oxygen Concentration - - Weight 86.2 kg (190 lb) 09/22/2024 3:28 PM CDT Height 157.5 cm (5' 2) 09/22/2024 3:28 PM CDT Body Mass Index 34.75 09/22/2024 3:28 PM CDT Plan of Treatment Upcoming Encounters Date Type Department Care Team (Late st Contact Info) Description 02/02/2025 3:20 PM RETAIL PRESENTATION SPECIALIST Office Visit [facility] - Rheumatology [address], [address] [place] [address] Chantelle Forbes MD [address] [place] [address] Health Maintenance Due Date Last Done Comments COLOGUARD (AGES 45-75) - COLON CA SCREENING 1978 COLON MONITORING 1978 COLONOSCOPY - COLON CA SCREENING 1978 CT COLONOGRAPHY - COLON CA SCREENING 1978 Colorectal Cancer Screening 1978 FIT - COLON CA SCREENING 1978 FLEX SIG - COLON CA SCREENING 1978 LIPID TESTING 1978 HIV SCREENING 1993 HEPATITIS B VACCINE (1 of 3 - 19+ 3-dose series) 1997 DTAP/TDAP/TD VACCINES (1 - Tdap) 04/04/2010 04/03/2010 DEPRESSION SCREENING 03/03/2024 02/10/2023, 11/20/2022, 05/01/2022 COVID-19 VACCINE (2024- season) 2024 03/23/2021, 05/10/2020, 05/08/2020 INFLUENZA VACCINE (#1) 2024 PAP SMEAR 08/20/2025 08/20/2022, 08/02, 07/27/2021, Additional history exists MAMMOGRAM 05/18/2026 05/18/2024, 05/01, 03/27/2023 SCREENING FOR DIABETES 10/23/2027 , 07/21/2024, 02/23/2024, Additional history exists ZOSTER VACCINE (1 of 2) 2028 HEPATITIS C SCREENING Completed 04/06/2024 , 05/13/2022, 04/03/2019 HIB VACCINE Aged Out No longer eligi ble based on patient's age to complete this topic HPV VACCINE Aged Out No longer eligi ble based on patient's age to complete this topic MENINGOCOCCAL (Group B) VACCINE SHARED DECISION-MAKING Aged Out No longer eligible based on patient's age to complete this topic MENINGOCOCCAL GROUPS A/C/Y/W VACCINE Aged Out No longer eligible based on patient's age to complete this topic PNEUMOCOCCAL VACCINE Aged Out No long er eligible based on patient's age to complete this topic Procedures Procedure Name Priority Date/Time Associated Diagnosis Comments COMPLEMENT C3 C4 PANEL Routine 5 8:03 AM CDT Psoriatic arthritis (HCC) DANN BLOOD SCREEN W/REFLEX TITER Routine 10/22/2024 8:03 AM CDT Psoriatic arthritis (HCC) C-REACTIVE PROTEIN Routine 10/22/2024 8: 03 AM CDT Psoriatic arthritis (HCC) ERYTHROCYTE SEDIMENTATION RATE Routine 10/22/2024 8:03 AM CDT Psoriatic arthritis (HCC) COMPREHENSIVE METABOLIC PANEL Routine 10/22/2024 8:03 AM CDT Psoriatic arthritis (HCC) CBC W AUTO DIFFERENTIAL Routine 10/22/2024 8:03 AM CDT Psoriatic arthritis (HCC) INFLAMMATORY BOWEL DISEASE PANEL Routine 10/22/2024 8:02 AM CDT Psoriatic arthritis (HCC) HEPATITIS SCREEN ACUTE ([facility]) Routine 04/06/2024 1:01 PM RETAIL PRESENTATION SPECIALIST Seronegative rheumatoid arthritis from Last 3 Months or Most Recently Relevant to Health Maintenance Results * C-REACTIVE PROTEIN (10/22/2024 8:03 AM CDT) Pathologist [facility] C-Reactive Protein <1 0 - 10 mg/L [facility] ACCOUNT BILL Blood BLOOD SPECIMEN / Unknown 10/22/2024 8:03 AM CDT 10/22/2024 Narrative [facility] ACCOUNT BILL - 10/23/2024 9:10 AM CDT Performed at: - [facility] [id number] Steak Tenderizer Machine: Shayne Garrett PhD, Phone: [phone] us Chantelle Forbes MD LAB - CHEMISTRY ORDERABLES Final Result [facility] ACCOUNT BILL [address] [place] [address] * (ABNORMAL) DANN BLOOD SCREEN W/REFLEX TITER (10/22/2024 8:03 AM CDT) DANN Positive(A) [facility] ACCOUNT BILL Comment: Negative <1:80 Borderline 1:80 Positive >1:80 Performed at: 01 - [facility] [address] [id number] Steak Tenderizer Machine: Shayne Garrett PhD, Phone: [phone] Speckled Pattern 1:160(H) [facility] ACCOUNT BILL Comment:ICAP nomenclature: A C-2,4,5,29 Note Comment [facility] ACCOUNT BILL Comment: Pattern Potential Disease Association Homogeneous Systemic Lupus Erythematosus, Drug Induced Systemic Lupus Erythematosus, Chronic Autoimmune hepatitis, Juvenile Idiopathic Arthritis Speckled Sjogren Syndrome, Systemic Lupus Erythematosus, Subacute Cutaneous Lupus, Lupus, Congenital Heart Block, Mixed Connective Tissue Disease, Scleroderma-diffuse, Scleroderma-Autoimmune Myositis Overlap Syndrome, Systemic Lupus Czlwmyeuqdlwt-Xeotrscucat-Lkhemeqyic Myositis Overlap Syndrome, Systemic Autoimmune Rheumatic Disease, Undifferentiated Connective Tissue Disease Nucleolar Systemic Sclerosis, Scleroderma-Autoimmune Myositis Overlap Syndrome, Sjogren Syndrome, Raynaud phenomenon, Pulmonary Arterial Hypertension, Systemic Autoimmune Rheumatic Disease, Cancer Centromere Scleroderma-CREST, Limited Cutaneous SSc, Raynaud's Phenomenon, Primary Biliary Cholangitis Nuclear Dot Primary Biliary Cholangitis Nuclear Primary Biliary Cholangitis, Autoimmune Membrane Hepatitis/Liver disease, Systemic Autoimmune Rheumatic Disease, Autoimmune Cytopenias, Linear Scleroderma, Antiphospholipid Syndrome Blood BLOOD SPECIMEN / Unknown 10/22/2024 8:03 AM CDT 10/22/2024 Narrative [facility] ACCOUNT BILL - 10/26/2024 5:09 PM CDT Performed at: [address] [place], [place] [id number] Steak Tenderizer Machine: Shayne Garrett PhD, Phone: [phone] Chantelle Forbes MD LAB - CHEMISTRY ORDERABLES Final Result Performing Organization Address City/[facility] Co de Phone Number [facility] ACCOUNT BILL [address] [place] [address] * ERYTHROCYTE SEDIMENTATION RATE (10/22/2024 8:03 AM CDT) Pathologist [facility] Erythrocyte Sedimentation Rate Westergren 9 0 - 32 mm/hr [facility] ACCOUNT BILL Blood BLOOD SPECIMEN / Unknown 10/22/2024 8:03 AM CDT 10/22/2024 Narrative [facility] ACCOUNT BILL - 10/23/2024 8:11 AM CDT Performed at: [address] [place] [id number] Steak Tenderizer Machine: Shayne Garrett PhD, Phone: [phone] Chantelle Forbes MD LAB - HEMATOLOGY ORDERABLES Joycelyn l Result Performing Organization Address City/[facility]/ZIP Co de Phone Number [facility] ACCOUNT BILL [address] [place] [address] * (ABNORMAL) CBC WITH DIFFERENTIAL (10/22/2024 8:03 AM CDT) WBC 6.1 3.4 - 10.8 x10E3/uL [facility] ACCOUNT BILL RBC 4.43 3.77 - 5.28 x10E6/uL [facility] ACCOUNT BILL Hemoglobin 13.3 11.1 - 15.9 g/dL [facility] ACCOUNT BILL Hematocrit 40.8 34.0 - 46.6 % [facility] ACCOUNT BILL MCV 92 79 - 97 fL [facility] ACCOUNT BILL MCH 30.0 26.6 - 33.0 pg [facility] ACCOUNT BILL MCHC 32.6 31.5 - 35.7 g/dL [facility] ACCOUNT BILL RDW 12.0 11.7 - 15.4 % [facility] ACCOUNT BILL Platelet Count 215 150 - 450 x10E3/uL [facility] ACCOUNT BILL Granulocytes % 54 Not Estab. % [facility] ACCOUNT BILL Lymphocytes % 20 Not Estab. % [facility] ACCOUNT BILL Monocytes % 9 Not Estab. % [facility] ACCOUNT BILL Eosinophils % 16 Not Estab. % [facility] ACCOUNT BILL Basophils % 1 Not Estab. % [facility] ACCOUNT BILL Granulocytes Absolute 3.3 1.4 - 7.0 x10E3/uL [facility] ACCOUNT BILL Lymphocytes Absolute 1.2 0.7 - 3.1 x10E3/uL [facility] ACCOUNT BILL Monocytes Absolute 0.5 0.1 - 0.9 x10E3/uL [facility] ACCOUNT BILL Eosinophils Absolute 1.0(H) 0.0 - 0.4 x10E3/uL [facility] ACCOUNT BILL Basophils Absolute 0.1 0.0 - 0.2 x10E3/uL [facility] ACCOUNT BILL Immature Granulocytes 0 Not Estab. % [facility] ACCOUNT BILL Immature Granulocytes Absolute 0.0 0.0 - 0.1 x10E3/uL [facility] ACCOUNT BILL Blood BLOOD SPECIMEN / Unknown 10/22/2024 8:03 AM CDT 10/22/2024 Narrative [facility] ACCOUNT BILL - 10/23/2024 7:09 AM CDT Performed at: 01 - [address] [id number] Steak Tenderizer Machine: Shayne Garrett PhD, Phone: [phone] us Chantelle Forbes MD LAB - HEMATOLOGY ORDERABLES Joycelyn l Result Performing Organization Address City/State/[facility] Co de Phone Number [facility] ACCOUNT BILL [address] [place] [address] * COMPREHENSIVE METABOLIC PANEL (10/22/2024 8:03 AM CDT) Pathologist [facility] Glucose 88 70 - 99 mg/dL [facility] ACCOUNT BILL BUN 10 6 - 24 mg/dL [facility] ACCOUNT BILL Creatinine 0.80 0.57 - 1.00 mg/dL [facility] ACCOUNT BILL eGFR by CKD-EPI 92 >59 mL/min/1.7 3 [facility] ACCOUNT BILL BUN/Creatinine Ratio 13 9 - 23 [facility] ACCOUNT BILL Sodium 139 134 - 144 mmol/L [facility] ACCOUNT BILL Potassium 4.5 3.5 - 5.2 mmol/L [facility] ACCOUNT BILL Chloride 103 96 - 106 mmol/L [facility] ACCOUNT BILL CO2 25 20 - 29 mmol/L [facility] ACCOUNT BILL Calcium 9.3 8.7 - 10.2 mg/dL [facility] ACCOUNT BILL Protein Total 6.5 6.0 - 8.5 g/dL [facility] ACCOUNT BILL Albumin 4.2 3.9 - 4.9 g/dL [facility] ACCOUNT BILL Globulin Total 2.3 1.5 - 4.5 g/dL [facility] ACCOUNT BILL Bilirubin Total 0.4 0.0 - 1.2 mg/dL [facility] ACCOUNT BILL Alkaline Phosphatase 58 44 - 121 IU/L [facility] ACCOUNT BILL AST 24 0 - 40 IU/L [facility] ACCOUNT BILL ALT 18 0 - 32 IU/L [facility] ACCOUNT BILL Blood BLOOD SPECIMEN / Unknown 10/22/2024 8:03 AM CDT 10/22/2024 Narrative [facility] ACCOUNT BILL - 10/23/2024 7:09 AM CDT Performed at: 01 - [facility] [id number] Steak Tenderizer Machine: Shayne Garrett PhD, Phone: [phone] Chantelle Forbes MD LAB - CHEMISTRY ORDERABLES Final Result [facility] ACCOUNT BILL [address] [place] [address] * COMPLEMENT C3 C4 PANEL (10/22/2024 8:03 AM CDT) Complement C3 121 82 - 167 mg/dL [facility] ACCOUNT BILL Complement C4 18 12 - 38 mg/dL [facility] ACCOUNT BILL Blood BLOOD SPECIMEN / Unknown 10/22/2024 8:03 AM CDT 10/22/2024 Narrative [facility] ACCOUNT BILL - 10/23/2024 9:10 AM CDT Performed at: 01 - [facility] [id number] Steak Tenderizer Machine: Shayne Garrett PhD, Phone: [phone] Chantelle Forbes MD LAB - CHEMISTRY ORDERABLES Final Result Performing Organization Address City/[facility]/ZIP Co de Phone Number [facility] ACCOUNT BILL [address] [place] [address] * (ABNORMAL) INFLAMMATORY BOWEL DISEASE PANEL (10/22/2024 8:02 AM CDT) Saccharomyces cerevisiae Antibody IgG 35.5(H) 0.0 - 24.9 Units [facility] ACCOUNT BILL Comment: Negative <20.0 Equivocal 20.1 - 24.9 Positive >or= 25.0 Saccharomyces cerevisiae Antibody IgA <20.0 0.0 - 24.9 Units [facility] ACCOUNT BILL Comment: Negative <20.0 Equivocal 20.1 - 24.9 Positive >or= 25.0 IgA and IgG antibody testing for S. cerevisiae is useful adjunct testing for differentiating Crohn's disease and ulcerative colitis. Close to 80% of Crohn's disease patients are positive for either IgA or IgG. In ulcerative colitis, less than 15% are positive for IgG and less than 2% are positive for IgA. Fewer than 5% are positive for either IgG or IgA antibody, and no healthy controls had antibody for both. Atypical p-ANCA Titer <1:20 Neg:<1:20 titer [facility] ACCOUNT BILL Comment: The atypical pANCA pattern has been observed in a significant percentage of patients with ulcerative colitis, primary sclerosing cholangitis and autoimmune hepatitis. ASCA+/PANCA- Suggestive of Crohn's disease ASCA-/PANCA+ Suggestive of Ulcerative colitis Blood BLOOD SPECIMEN / Unknown 10/22/2024 8:02 AM CDT 10/22/2024 Narrative [facility] ACCOUNT BILL - 10/25/2024 5:09 PM CDT Performed at: - [facility] [id number] Steak Tenderizer Machine: Margarito Mo MD, Phone: [phone] Performed at: - [facility] [id number] Steak Tenderizer Machine: Shayne Garrett PhD, Phone: [phone] Chantelle Forbes MD LAB - CHEMISTRY ORDERABLES Final Result [facility] ACCOUNT BILL [address] [place] [address] * HEPATITIS SCREEN ACUTE ([facility]) (04/06/2024 1:01 PM RETAIL PRESENTATION SPECIALIST) [facility] Hepatitis A Virus Antibody IgM Negative Negative [facility] ACCOUNT BILL Comment: A negative anti-HAV IgM result suggests no recent or current HAV infection. Hepatitis B Virus Surface Antigen Negative Negative [facility] ACCOUNT BILL Hepatitis B Core Virus Antibody IgM Negative Negative [facility] ACCOUNT BILL Hepatitis C Antibody Non Reactive Non Reactive [facility] ACCOUNT BILL Comment: Performed at: - [facility] [id number] Steak Tenderizer Machine: Shayne Garrett PhD, Phone: [phone] Interpretation Comment [facility] ACCOUNT BILL Comment: Not infected with HCV unless early or acute infection is suspected (which may be delayed in an immunocompromised individual), or other evidence exists to indicate HCV infection. Blood BLOOD SPECIMEN / Unknown 04/06/2024 1:01 PM RETAIL PRESENTATION SPECIALIST 04/06/2024 Narrative [facility] ACCOUNT BILL - 04/07/2024 7:09 AM RETAIL PRESENTATION SPECIALIST Performed at: [facility] [id number] Steak Tenderizer Machine: Shayne Garrett PhD, Phone: [phone] Chantelle Frobes MD LAB - CHEMISTRY ORDERABLES Final Result [facility] ACCOUNT BILL [address] [place] [address] from Last 3 Months or Most Recently Relevant to Health Maintenance Insurance [facility] CARE [facility] CARE SELF PAY NO INSURANCE Member Subscriber Plan / Payer (Ef fective for All Dates) Name:Yael Hawk Member ID:Not on file Relation to Subscriber:Not on file Name:LARSYAEL Subscriber ID:Not on file Address: [address] [place] [address] Payer ID:Not on file Group ID:Not on file Type:Self Pay Address: [place], [place] [facility]ALTH [facility]ARE SELF PAY NO INSURANCE Member Subscriber Plan / Payer (Ef fective for All Dates) Name:Yael Hawk Member ID:Not on file Relation to Subscriber:Not on file Name:YAEL HAWK Subscriber ID:Not on file Address: [address] [place] [address] Payer ID:Not on file Group ID:Not on file Type:Self Pay Address: [place] [facility]ALTH [facility]ARE SELF PAY NO INSURANCE Member Subscriber Plan / Payer (Ef fective for All Dates) Name:Yael Hawk Member ID:Not on file Relation to Subscriber:Not on file Name:YAEL HAWK Subscriber ID:Not on file Address: [address] [place] [id number] Payer ID:Not on file Group ID:Not on file Type:Self Pay Address: [place], [place] Care Teams Silviculturist Relationship Specialty Start Date End Date Belen Bella APRN-LATA [facility] [place] [address] [place] [phone] PCP - General Nurse Practitioner 02/10/23
--- OUTSIDE RECORDS SUMMARY | 2024-12-06 11:34 | XMS_ITS | Clinical Summary ---
Author Organization [facility] Care Team Providers Care Net Developer Software Engineer C Name Role Phone Belen Bella APRN Primary Care Provider [phone] Allergies Active Allergy Reactions Criticality Noted Date Comments Egg-Derived Products Unknown Penicillin G Unknown As a kid. Medications SUMAtriptan (IMITREX) 50 MG TabletIndicatio ns:Migraine with aura and without status migrainosus, not intractable Take 1 Tab by mouth once as needed for Migraine for up to 1 dose. May repeat dose in 2 hours if headache recurs. 9 Tab 3 8 Active zolpidem (AMBIEN) 5 MG TabletIndicatio ns:Insomnia, unspecified type Take 1 Tab by mouth nightly as needed for Sleep. 30 Tab 8 Active DULoxetine (CYMBALTA) [address] Sabine tions:Depressiv e disorder,Chroni c low back pain without sciatica, unspecified back pain laterality Take 1 Cap by mouth daily. 90 Cap 8 Active clobetasol (TEMOVATE) 0.05 % Ointment JOIE TO RASH BID 2 9 Active [place]-3 Fatty Acids (FISH OIL PO) Take 1 Cap by mouth daily. Active CALCIUM PO Take 1 Tab by mouth 2 times daily. Active VITAMIN D PO Take 1 Cap by mouth daily. Active acetaminophen (TYLENOL) 325 MG Tablet Take 1 Tab by mouth every 6 hours as needed for Fever (for temperature greater than 100.4 F.). Do not exceed 4000 mg of acetaminophen in 24 hour from all sources. 9 Active azaTHIOprine (IMURAN) 50 MG Tablet azathioprine 50 mg tablet TAKE 1 TABLET BY MOUTH ONCE DAILY 1 Active celecoxib (CeleBREX) 100 MG Capsule celecoxib 100 mg capsule TAKE 1 CAPSULE BY MOUTH 2 TIMES DAILY 1 Active busPIRone (BUSPAR) 5 MG Tablet every morning. 0 Active Cimzia Prefilled 2 X 200 MG/ML Kit every 30 days. 1 Active ondansetron (ZOFRAN) 4 MG Tablet Take 4 mg by mouth. Active Psyllium (METAMUCIL PO) Take by mouth daily. Active Probiotic Product (ALIGN PO) Take by mouth daily. Active MAGNESIUM PO Take by mouth daily. Active famotidine (PEPCID) 20 MG TabletIndicatio ns:Epigastric pain Take 1 Tablet by mouth 2 times daily. 180 Tablet 1 1 Active Active Problems Problem Noted Date Diagnosed Date Other forms of systemic lupus erythematosus 09/01 Seronegative rheumatoid arthritis 09/20/2020 Autoimmune hepatitis 09/20/2020 S/P laparoscopic cholecystectomy 02/09/2019 Acute cholecystitis 01/20/2019 Calculus of gallbladder with acute on chronic cholecystitis without obstruction 01/20/2019 Hyperlipidemia 07/01/2016 Chronic low back pain without sciatica 7 Obesity (BMI 35.0-39.9 without comorbidity) 11/2016 Psoriasis 04/11/2016 Anxiety state Depressive disorder Esophageal reflux Immunizations Immunization Administration Dates Next Due Covid-19 Vaccine, Vector-nr, Rs-ad26, Pf, 0.5 Ml (LOAN/J&J) 05/08/2020 Covid-19, Mrna, Lnp-s, PF, 1 00 mcg/0.5 mL Dose (Moderna) 05/10/2020 TD VACCINE 04/03/2010 Family History Medical History Relation Name Comments No Known Problems Brother Heart Attack Father Heart Disease Father Cancer Maternal Grandfather throat Anemia Maternal Grandmother Heart Disease Mother Diabetes Paternal Grandfather Heart Disease Paternal Grandfather Chronic Obstructive Pulmonary Disease Paternal Grandmo ther Diabetes Paternal Grandmother Heart Disease Paternal Grandmother No Known Problems Son Relation Name Status Comments Brother Alive Father Alive Maternal Grandfather Maternal Grandmother Mother Alive Paternal Grandfather Paternal Grandmother Son Alive Social History Tobacco Use Types Packs/Day Years Used Date Smoking Tobacco: Former Cigarettes 1 11 1 03/22/1999 - 02/07/2011 Smokeless Tobacco: Never Tobacco Cessation:Counseling Given: No Alcohol Use Standard Drinks/Week Comments Not Currently 0 (1 standard drink = 0.6 oz pur e alcohol) Sexually Active Control Partners Comments Yes Male Comments No Sex and Gender Information Value Date Recorded Sex Assigned at Not on file Legal Sex Female 2:50 PM CDT Gender Identity Not on file Sexual Orientation Not on file Last Filed Vital Signs Vital Sign Reading Time Taken Comments Blood Pressure 125/86 11/17/2020 9:34 AM CDT Pulse 78 11/17/2020 9:34 AM CDT Temperature 37 C (98.6 F) 11/17/2020 9:34 AM CDT Respiratory Rate 17 11/17/2020 9:34 AM CDT Oxygen Saturation 99% 11/17/2020 9:34 AM CDT Inhaled Oxygen Concentration - - Weight 80.7 kg (178 lb) 09/20/2020 8:12 AM CDT Height 157.5 cm (5' 2) 09/20/2020 8:12 AM CDT Body Mass Index 32.56 09/20/2020 8:12 AM CDT Plan of Treatment Health Maintenance Due Date Last Done Comments Hepatitis C Virus (HCV) Screening 1978 TdaP Immunization 1978 Hepatitis B Immunization (1 of 3 - 19+ 3-dose series) 1997 HPV/Cotest 2008 Cervical Cancer Screening (CCS) 12/07/2017 Pap Smear 12/07/2017 12/07/2014 Cologuard 05/24/2023 Colonoscopy 05/24/2023 Colorectal Cancer Screening 05/24/2023 Immunochemical Fecal Occult Blood 05/24/2023 Influenza Immunization (#1) 2024 SARS-COV-2 Immunization ( season) 2024 05/10/2020, 05/08/2020 Respiratory Syncytial Virus (RSV) Immunization (Adult) (1 - 1-dose 75+ series) 2053 Human Papillomavirus (HPV) Immunization Aged Out No longer eligible b ased on patient's age to complete this topic Meningococcal Immunization (ACWY) Aged Out No longer eligible b ased on patient's age to complete this topic Pneumococcal Immunization Combined Aged Out No longer eligible b ased on patient's age to complete this topic Rotavirus Immunization Aged Out No lo nger eligible based on patient's age to complete this topic Procedures Procedure Name Priority Date/Time Associated Diagnosis Comments PATHOLOGY CYTOLOGY PRODUCTION SUPPORT CONSULTANT Routine 12/07/2014 from Last 3 Months or Most Recently Relevant to Health Maintenance Results * PATHOLOGY CYTOLOGY PRODUCTION SUPPORT CONSULTANT (12/07/2014) Specimen of unknown material (specimen) us Historical Provider PATHOLOGY/CYTOLOGY ORDERA BLES Final Result from Last 3 Months or Most Recently Relevant to Health Maintenance Care Teams Net Developer Software Engineer C Relationship Specialty Start Date End Date Belen Bella APRN PCP - General Advanced Practice Nurse 01/16/19
--- OUTSIDE RECORDS SUMMARY | 2024-12-06 11:34 | XMS_ITS | Clinical Summary ---
Author Organization [facility] Address [address] [place] [address] Care Team Providers Care Civil Preparedness Officer Name Role Phone Dawit Mayorga MD Primary Care Provider [phone] Chantelle Forbes MD Unavailable Carmine Mistry MD Unavailable Jaz Cool LEATHER POLISHER Unavailable [phone] Ludy Fung DC Unavailable Kign Larios MD Unavailable [phone] Ilene Perrin LEATHER POLISHER Unavailable [phone] Allergies Active Allergy Reactions Criticality Noted Date Comments Egg Other (See comments) Low Severe abd pain. Penicillins Unknown Medications SUMAtriptan (IMITREX) 50 mg tabletIndication s:Migraine Take 1 tablet (50 mg total) by mouth as needed 8 Active cyanocobalamin (Vitamin B-12) 1,000 mcg tabletIndication s:Prevention of Vitamin B12 Deficiency Take 1 tablet (1,000 mcg total) by mouth daily Active cholecalciferol, vitamin D3, (VITAMIN D3 ORAL) Take 1 capsule by mouth daily Active Lactobacillus acidophilus (PROBIOTIC ORAL) Take by mouth daily Active docosahexaenoic acid/epa (FISH OIL ORAL) Take 1 capsule by mouth daily Active MAGNESIUM ORAL Take by mouth daily Active magnesium gluconate (MAGONATE) 500 mg (27 mg elemental) tablet Take 1 tablet (500 mg total) by mouth daily Active acetaminophen (TYLENOL) 325 mg tablet Take 1 tablet (325 mg total) by mouth every 6 (six) hours as needed 9 Active celecoxib (CeleBREX) 100 mg capsule TAKE ONE (1) (ONE) CAPSULE BY MOUTH TWO (2) TIMES DAILY NEEDED 0 Active clobetasoL (TEMOVATE) 0.05 % ointment clobetasol 0.05 % topical ointment 0 Active dicyclomine (BENTYL) 20 mg tablet dicyclomine 20 mg tablet 2 Active ferrous sulfate ER (SLOW IRON) 142 mg (45 mg of elemental iron) tablet Take 1 tablet (142 mg total) by mouth Active omeprazole (PriLOSEC) 40 mg capsule 2 Active zolpidem (AMBIEN) 5 mg tablet TAKE 1 TABLET (5 MG TOTAL) BY MOUTH NIGHTLY 12.9 30 tablet 2 4 Active busPIRone (BUSPAR) 5 mg tabletIndication s:ROB (generalized anxiety disorder) TAKE 1 TABLET (5 MG TOTAL) BY MOUTH TWO (2) (TWO) TIMES a DAY 60 tablet [address] (CYMBALTA) 60 mg capsule TAKE 1 CAPSULE (60 MG TOTAL) BY MOUTH DAILY 90 capsule 1 4 Active Active Problems Problem Noted Date Diagnosed Date Mass of right breast 07/04/2022 Abnormal mammogram of right breast 07/04/2022 Encounter for medical examination to establish c are 03/18/2022 Assessment & Plan (03/18/2022 2:37 PM PRINCIPAL LAW CLERK): A(n) initial well visit to establish care has been performed today. Alea Hawk is not up to date on screening tests. She is in need of Breast cancer screening and Cervical cancer screening- ordered. She is not up to date on needed preventative vaccinations; She is in need of Tdap/Td, Pneumonia (Prevnar-13 or Pneumovax-23) and Covid-19 (booster). We discussed healthy lifestyle habits, educational material has been given. Medications reviewed, changes documented as per the medical record and discussed with patient along with risks vs benefits. Awaiting lipid panel Labs ordered for next visit, but if heme gets them first we can cancel them Continuing current regimen Esophageal reflux 03/14/2022 Iron deficiency anemia 09/20/2021 Eclampsia in 07/31/2021 Autoimmune hepatitis 09/20/2020 Other forms of systemic lupus erythematosus 09/01 Seronegative rheumatoid arthritis 08/01/2019 S/P laparoscopic cholecystectomy 02/09/2019 Calculus of gallbladder with acute on chronic cholecystitis without obstruction 01/20/2019 Disorder of vitamin B12 11/17/2017 Positive antinuclear antibody 11/17/2017 Anxiety state 10/16/2017 Depressive disorder 10/16/2017 Eczema 10/16/2017 Migraines 10/16/2017 Chronic low back pain without sciatica 7 Hyperlipidemia 07/01/2016 Obesity (BMI 35.0-39.9 without comorbidity) 11/2016 Psoriasis 04/11/2016 Encounters Date Type Department Care Team Description 10/22/2024 7:01 AM CDT - 10/22/2024 11:59 PM CDT Hospital Encounter [facility] [address] [place] [address] Other specified abnormal findings of blood chemistry Discharge Disposition: Discharge to home or self care from Last 3 Months Immunizations Immunization Administration Dates Next Due Influenza, Unspecified 03/03/2022(Deferr ed: Patient Refused),03/03/2021(Deferred: Patient Refused) Td, adsorbed 04/03/2010 Surgical History Surgery Date Site/Laterality Comments CHOLECYSTECTOMY January 2019 Medical History Medical History Date Comments Iron deficiency anemia Autoimmune hepatitis (HCC) 09/20/2020 Esophageal reflux 03/14/2022 S/P laparoscopic cholecystectomy 02/09/2019 Eclampsia in 07/31/2021 Depressive disorder 10/16/2017 Other forms of systemic lupu s erythematosus 09/20/2020 Seronegative rheumatoid arthritis (HCC) 08/01/19 20 Chronic low back pain without sciatica 7 Psoriasis 04/11/2016 Hyperlipidemia 07/01/2016 Anxiety Migraines Autoimmune disease Lupus, Seronegative RA, autoimmune hepatitis, eczema, psoriasis Menstrual problem menorrhagia Family History Medical History Relation Name Comments Arthritis Father Sylvain Hadley Hearing loss Father Sylvain Hadley Heart attack Father Sylvain Hadley Cancer Maternal Grandfather Pierce Rushing Thyroid cancer Maternal Grandfather Pierce Rushing Anemia Maternal Grandmother Pecolia Rushing Arthritis Mother Nellie Hadley Depression Mother Nellie Hadley Heart disease Mother Nellie Hadley Asthma Paternal Grandfather Sylvain Hadley Hearing loss Paternal Grandfather Sylvain Hadley Heart attack Paternal Grandfather Sylvain Hadley Heart disease Paternal Grandfather Sylvain Hadley Asthma Paternal Grandmother Nita Hadley COPD Paternal Grandmother Nita Hadley Diabetes Paternal Grandmother Nita Hadley Hearing loss Paternal Grandmother Nita Hadley Heart disease Paternal Grandmother Nita Hadley Memory loss Paternal Grandmother Nita Hadley Relation Name Status Comments Father Sylvain Hadley Maternal Grandfather Pierce Rushing Maternal Grandmother Peckallie Rushing Mother Nellie Hadley Paternal Grandfather Sylvain Hadley Paternal Grandmother Nita Hadley Social History Tobacco Use Types Packs/Day Years Used Date Smoking Tobacco: Former Cigarettes 0 03/03/1999 - 03/03/2011 Smokeless Tobacco: Never Tobacco Cessation:Counseling Given: Not Answered AUDIT-C Answer Date Recorded Q1: How often [...] on file Legal Sex Female 11:35 AM PRINCIPAL LAW CLERK Gender Identity Not on file Sexual Orientation Not on file 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 on file Not on file Not on file Obstetrics History Last Filed Vital Signs Vital Sign Reading Time Taken Comments Blood Pressure 124/78 09/12/2022 12:32 PM CDT Pulse 84 09/12/2022 12:32 PM CDT Temperature 36.9 C (98.4 F) 09/12/2022 12:32 PM CDT Respiratory Rate 18 03/14/2022 12:46 PM PRINCIPAL LAW CLERK Oxygen Saturation 98% 09/12/2022 12:32 PM CDT Inhaled Oxygen Concentration - - Weight 83 kg (183 lb) 05/18/2024 3:03 PM CDT Height 157.5 cm (5' 2.01) 05/18/2024 3:03 PM CD T Body Mass Index 33.46 05/18/2024 3:03 PM CDT Plan of Treatment Health Maintenance Due Date Last Done Comments Cervical Cancer Screening 1978 Colon Cancer Screening-Colonoscopy 1978 Hepatitis C Screening 1978 Hepatitis B Screening 1996 Pneumococcal vaccine <65 (1 of 2 - PCV) 1997 DTaP/Tdap/Td Vaccine (1 - Tdap) 04/04/2010 04/03/2010 Regular Well Visit/Exam 18-64 03/14/2023 03/14/2022 Depression Screening 09/13/2023 09/12/2022, 03/14/2022, 03/14/2022 Covid-19 Vaccine (2024- season) 2024 03/23/2021, 05/10/2020, 05/08/2020 Breast Cancer Screening-Mammogram 05/18/2025 05/18/2024, 03/27/2023 HPV Vaccines Aged Out No longer eligi ble based on patient's age to complete this topic Influenza Vaccine Discontinued Procedures Procedure Name Priority Date/Time Associated Diagnosis Comments US ABDOMEN LIMITED Schedule Routine, Read Routine (OP Routine) 10/22/2024 7:29 AM CDT Other specified abnormal findings of blood chemistry SCREENING MAMMOGRAM BILATERAL W EMMANUEL Schedule Routine, Read Routine (OP Routine) 05/18/2024 3:21 PM CDT Abnormal mammogram of right breast from Last 3 Months or Most Recently Relevant to Health Maintenance Results * US Abdomen Limited (10/22/2024 7:29 AM CDT) Anatomical Region Laterality Modality Abdomen N/A Ultrasound 11/03/2024 11:0 9 PM CDT Narrative 11/03/2024 11:10 PM CDT EXAM DESCRIPTION: US ABDOMEN LIMITED REASON FOR STUDY: Abnormally elevated liver enzymes TECHNIQUE: Ultrasound of the right upper quadrant of the abdomen was performed with grayscale and color doppler. COMPARISON: None FINDINGS: PANCREAS: Visualized portions of the pancreas are within normal limits. Portions of the pancreatic body and tail are obscured due to bowel gas. LIVER: The liver appears normal in echotexture and echogenicity. No focal lesion identified. The main portal vein is patent with antegrade flow. GALLBLADDER: Gallbladder surgically absent. BILIARY: There is no intrahepatic or extrahepatic biliary ductal dilatation. Common bile duct measures 3 mm in diameter. RIGHT KIDNEY: Normal size. Normal echogenicity. No solid mass or cyst. No hydronephrosis. Measures 10.9 cm in length. OTHER: No other significant findings. IMPRESSION: No acute abnormality. THIS IS AN ELECTRONICALLY VERIFIED FINAL REPORT 11/03/2024 11:10 PM - Electronically signed by Taqueria Young M.D. KT: MARILU Report ID: [id number] Reading Location: [id number] Procedure Note Taqueria Young MD - 11/03/2024 EXAM DESCRIPTION: US ABDOMEN LIMITED REASON FOR STUDY: Abnormally elevated liver enzymes TECHNIQUE: Ultrasound of the right upper quadrant of the abdomen wasperformed with grayscale and color doppler. COMPARISON: None FINDINGS: PANCREAS: Visualized portions of the pancreas are within normal limits. Portions of the pancreatic body and tail are obscured due to bowel gas. LIVER: The liver appears normal in echotexture and echogenicity. Nofocal lesion identified. The main portal vein is patent with antegrade flow. GALLBLADDER: Gallbladder surgically absent. BILIARY: There is no intrahepatic or extrahepatic biliary ductaldilatation. Common bile duct measures 3 mm in diameter. RIGHT KIDNEY: Normal size. Normal echogenicity. No solid mass or cyst.No hydronephrosis. Measures 10.9 cm in length. OTHER: No other significant findings. IMPRESSION: No acute abnormality. THIS IS AN ELECTRONICALLY VERIFIED FINAL REPORT 11/03/2024 11:10 PM - Electronically signed by Taqueria Young M.D. KT: MARILU Report ID: [id number] Reading Location: [id number] us Chantelle Forbes MD [facility] – [place] US PROCEDURES Final Result * Screening Mammogram Bilateral W Emmanuel (05/18/2024 3:21 PM CDT) Anatomical Region Laterality Modality Breast Bilateral Mammography Narrative 05/19/2024 9:36 AM CDT Mammogram Technique: Bilateral Digital Breast Tomosynthesis, Bilateral C-view 2D Screening mammogram. Views obtained: bilateral craniocaudal and bilateral mediolateral oblique. Computer Aided Detection was performed. Mammogram Findings: The present examination has been compared to prior imaging studies performed at [facility] on 03/27/2023, and at [facility]. [place], [place] on 11/26/2021 and 05/17/2022. There are scattered areas of fibroglandular density. There is no suspicious abnormality in either breast. Impression: There is no mammographic evidence of malignancy. Annual screening mammography is recommended. OVERALL FINAL ASSESSMENT: BI-RADS CATEGORY 1: Negative. Procedure Note Darlin Barrios MD - 05/19/2024 Mammogram Technique: Bilateral Digital Breast Tomosynthesis, Bilateral C-view 2D Screening mammogram. Views obtained: bilateral craniocaudal and bilateral mediolateral oblique. Computer Aided Detection was performed. Mammogram Findings: The present examination has been compared to prior imaging studies performed at [facility] on 03/27/2023, and at [facility]. [place], [place] on 11/26/2021 and 05/17/2022. There are scattered areas of fibroglandular density. There is no suspicious abnormality in either breast. Impression: There is no mammographic evidence of malignancy. Annual screening mammography is recommended. OVERALL FINAL ASSESSMENT: BI-RADS CATEGORY 1: Negative. Marsha Ware NP IMG MAMMO PROCEDURES Final Result from Last 3 Months or Most Recently Relevant to Health Maintenance Insurance [facility]PPO Address: [place] [address] [facility] Address: [place] [address] [facility] [place] [address] Care Teams Civil Preparedness Officer Relationship Specialty [place] [address] [place] [address] PCP - General Family Medicine 03/14/22 Chantelle Forbes MD [address] [place] [address] Referring Physician Rheumatology 03/14/22 [place] [address] [address] Consulting Physician Cardiology 03/14/22 [place] [address] [address] Nurse Practitioner Nurse Practitioner 03/14/22 Ludy Fung DC [address] [place], [place] [id number] Chiropractic Medicine 03/14/22 King Larios MD [address] [place] [address] Referring Physician Hematology 03/14/22 Ilene Perrin NP [address] [place] [address] Referring Physician Obstetrics and Gynecology 05/27/22
--- OUTSIDE RECORDS SUMMARY | 2024-12-06 11:34 | XMS_ITS | Encounter Summary ---
Author Organization [facility] Address [address] [place] [address] Care Team Providers Care Box Gluer Name Role Phone Belen Bella RENU-OFFICE AUDITOR Primary Care Provider + Encounter Details Date Type Department Care Team (Late Contact Info) Description 10/25/2024 Results Follow-Up [facility] - Rheumatology [address] [place] [address], [address] [place] [address] Chantelle Forbes MD [address] [place] [id number] Social History Tobacco Use Types Packs/Day Years Used Date Smoking Tobacco: Former Cigarettes Smokeless Tobacco: Never Alcohol Use Standard Drinks/Week Comments No 0 (1 standard drink = 0.6 oz pur e alcohol) PHQ-2 Answer Date Recorded PHQ2 TOTAL SCORE 0 05/01/2022 Comments Unknown Sex and Gender Information Value Date Recorded Sex Assigned at Female 07/10/2020 8:48 AM CDT Legal Sex Female 2:15 PM ACCOUNT RELATIONSHIP MANAGER Gender Identity Female 07/10/2020 8:48 AM CDT Sexual Orientation Not on file documented as of this encounter Plan of Treatment Upcoming Encounters Date Type Department Care Team (Late Contact Info) Description 02/02/2025 3:20 PM ACCOUNT RELATIONSHIP MANAGER Office Visit [facility] - Rheumatology [address] [place] [address], [address] [place] [address] Chantelle Forbes MD [address] [facility] [place] [address] documented as of this encounter Visit Diagnoses Not on filedocumented in this encounter Care Teams Box Gluer Relationship Specialty Start Date End Date Belen Bella APRN-OFFICE AUDITOR [facility] [place] [address] PCP - General Nurse Practitioner 02/10/23 documented as of this encounter
--- NOTE | 2024-12-06 11:52 | PM.IMHP ---
H&P: HPI History of Present Illness Date/Time: 12/06/24 11:52 Chief Complaint: diarrhea Narrative: this patient is referred for colonoscopy. She has a history of rheumatoid and psoriatic arthritis, now controlled with Rinvoq. Before this, she was having frequent episodes of diarrhea, non bloody. Review of Systems Review of Systems: All systems reviewed & are unremarkable except as noted in HPI and below PMFSH Past Medical History Medical History Rheumatoid arthritis Psoriatic arthritis Lupus Eczema Anemia Anxiety Depression Migraine Irritable bowel disease Psoriasis Surgical History Surgical History Status post hysteroscopic ablation of endometrium 05/20/23; Dr Whitfield H/O ovarian cystectomy Dr Whitfield 05/20/23 H/O bilateral salpingectomy laproscopic w/ Dr Whitfield 05/20/23 Hx of cholecystectomy Family History Family History Sibling Asthma Father Acute myocardial infarction Rheumatoid arthritis Cardiovascular disease Grandparent Cancer Asthma Cardiovascular disease Acute myocardial infarction Diabetes mellitus COPD (chronic obstructive pulmonary disease) Mother High cholesterol Cardiovascular disease Social History Social History Smoking packs per day: 1 Smoking cigarettes per day: 20.0 Years smoked: 11 Smoking pack-years: 11.00 Smoking status: Former smoker Tobacco type: cigarettes Smokeless tobacco user: chewing tobacco Smoking end date: 05/11/10 Alcohol intake: never Substance use: never Substance use type: does not use Lack of Transportation: No Lack of Food: Never True Current Housing: I Have Housing Concerned About Future Housing: No Difficulty Paying Gas/Electric Bills: No Difficulty Paying for Meds: No Currently Unemployed: No Education: Trade/Vocational Certificate Living arrangements: with family Gender identity (if verbalized by the patient): Female Spiritual care concerns: No Agree to blood products: Yes Meds Home Medications and Allergies Home Medications ?Medication ?Instructions ?Recorded ?Confirmed ?Type cholecalciferol (vitamin D3) 25 25 mcg PO DAILY 10/16/21 12/06/24 History mcg (1,000 unit) capsule vitamin B complex 1 cap PO DAILY 10/16/21 12/06/24 History leflunomide 10 mg tablet 10 mg PO DAILY 06/04/23 12/06/24 History clobetasol 0.05 % topical ointment 1 applic topical BID #60 grams 07/10/23 12/06/24 Rx duloxetine 60 mg capsule,delayed 60 mg PO DAILY #90 caps 04/20/24 12/06/24 Rx release sprinkle zolpidem 5 mg tablet 5 mg PO QHS PRN insomnia #90 tabs 08/31/24 12/06/24 Rx omeprazole 40 mg capsule,delayed See Rx Instructions .Route 09/09/24 12/06/24 Rx release .COMPLEX #60 caps buspirone 5 mg tablet See Rx Instructions .Route 10/04/24 12/06/24 Rx .COMPLEX #180 tabs upadacitinib 15 mg tablet,extended 15 mg PO DAILY 11/10/24 12/06/24 History release 24 hr (Rinvoq) Allergies Allergy/AdvReac Type Severity Reaction Status Date / Time Penicillins Allergy Severe Other Verified 12/06/24 10:40 egg Allergy Unknown ABDOMINAL Verified 12/06/24 10:40 PAIN Vital Signs Vital Signs - 24 hr 12/06/24 10:54 Temperature 98.6 F Pulse Rate 80 Respiratory Rate 16 Blood Pressure 118/81 Pulse Oximetry 98 Oxygen Delivery Room Air Exam Const: General: cooperative and healthy appearing Resp: Effort & Inspection: normal respiratory effort and able to speak in complete sentences Auscultation: clear to auscultation bilaterally Cardio: Rate: regular rate Rhythm: regular rhythm GI: Inspection: normal to inspection GI Palp: No No hepatosplenomegaly present Auscultation: normal bowel sounds Rectal Exam: deferred Skin: General skin exam: normal color Psych: Appearance: grossly normal Mental Status: mental status grossly normal Assessment and Plan Assessment and plan (1) Diarrhea: Code(s): R19.7 - Diarrhea, unspecified Status: Acute Assessment and Plan: The patient is deemed a good candidate for the procedure. Consent signed. Will proceed.
--- NOTE | 2024-12-06 12:04 | WPDANESPN ---
Anes - Prog Note Post-Op Date/Time: 12/06/24 12:04 Vital Signs: Last Vital Signs Temp 98.6 F 12/06/24 10:54 Pulse 80 12/06/24 10:54 Resp 16 12/06/24 10:54 BP 118/81 12/06/24 10:54 Pulse Ox 98 12/06/24 10:54 O2 Del Method Room Air 12/06/24 10:54 Pain Score (VAS): no Patient Feedback: Patient satisfied with anesthetic care.
[2024-12-06] MEDS: SIMETHICONE ORAL SUSPENSION 20 MG/0.3 ML 30 ML BOTTLE 0.6 ML IRRIGATION (12:13)
[2024-12-06 12:27] VITALS: BP 103/60; PULSE 76; RESP 14; O2SAT 98
[2024-12-06 12:37] VITALS: BP 102/60; PULSE 77; RESP 16; O2SAT 99
[2024-12-06 12:47] VITALS: BP 98/62; PULSE 74; RESP 16; O2SAT 99
== END 2024-12-06 13:05 | disposition home or self-care (01) ==
PROVIDERS: PCP Nurse Practitioner Adult Health; Referring Provider Nurse Practitioner Family; Visit Provider Internal Medicine Gastroenterology
PROC: 0DJD8ZZ Inspection of Lower Intestinal Tract, Via Natural or Artificial Opening Endoscopic (ICD-10-PCS; CPT 45378; principal; 2024-12-06 12:00)
DX: Z12.11 Encounter for screening for malignant neoplasm of colon (principal); K57.30 Diverticulosis of large intestine without perforation or abscess without bleeding; K64.8 Other hemorrhoids
CPT/HCPCS: 45378

== ENCOUNTER 2024-12-06 11:11 | Outpatient (NON) | payer OTHER, SELFPAY ==
--- OUTSIDE RECORDS SUMMARY | 2018-07-23 | XMS_ITS | Encounter Summary ---
Author Organization [facility] Healthcare Address [address] [place] [address] Care Team Providers Care Analysis Consultant Name Role Phone Belen Bella NP Primary Care Provider [phone] Reason for Visit * Diagnostic Imaging (Routine) - Closed Specialty Diagnoses / Procedures Referred By Contestefany hopper Referred To Contact Procedures Breast Imaging Screening Outside Reference Angela Vaughan NP Phone: tel: fax: Referral ID Status Reason Start Date Expiration Date Visits Re quested Visits Authorized [id number] Closed 06/20/2022 07/20/2023 1 1 Encounter Details Date Type Department Care Team (Late st Contact Info) Description 07/23/2018 Hospital Encounter [facility] [address] [place] [address] Social History Tobacco Use Types Packs/Day Years Used Date Smoking Tobacco: Former Cigarettes 0 03/03/1999 - 03/03/2011 Smokeless Tobacco: Never AUDIT-C Answer Date Recorded Q1: How often do you have a drink containing alc ohol? Monthly or less 07/04/2022 Q2: How many drinks containi ng alcohol do you have on a typical day when you are drinking? 1 or 2 07/04/2022 Q3: How often do you have si x or more drinks on one occasion? 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 Monthly or less 07/04/2022 9:16 AM Anushka Lorenz CMA Q2: How many drinks containing alcohol do you have on a typical day when you are drinking? 1 or 2 07/04/2022 9:16 AM Anushka Lorenz CMA Q3: How often do you have six or more drinks on one occasion? Less than monthly 07/04/2022 9:16 AM Anushka Lorenz CMA documented as of this encounter Plan of Treatment Not on file documented as of this encounter Procedures Procedure Name Priority Date/Time Associated Diagnosis Comments BREAST IMAGING MG SCREENING OUTSIDE REFERENCE Routine 07/23/2018 12:00 AM CDT documented in this encounter Results * Breast Imaging Screening Outside Reference (07/23/2018 12:00 AM CDT) Impressions [facility] - 06/20/2022 8:56 AM CDT These images are for Reference purposes only and have not been reviewed by [facility] Radiology. There will be no report generated by a [facility] Radiologist. Narrative [facility] - 06/20/2022 8:56 AM CDT EXAMINATION: Images For Reference Purposes Only us Angela Vaughan NP IMG MAMMO PROCEDURES Final Result [facility] documented in this encounter Visit Diagnoses Not on filedocumented in this encounter Care Teams Analysis Consultant Relationship Specialty Start Date End Date Belen Bella NP PCP - General 12/30/17 06/14/19 documented as of this encounter
--- OUTSIDE RECORDS SUMMARY | 2019-08-31 | XMS_ITS | Encounter Summary ---
Author Organization [facility] Healthcare Address [address] [place] [address] Care Team Providers Care R&D Lab Technician Name Role Phone No, Physician Primary Care Provider [phone] Reason for Visit * Diagnostic Imaging (Routine) - Closed Specialty Diagnoses / Procedures Referred By Jim hopper Referred To Contact Procedures Breast Imaging Screening Outside Reference Angela Vaughan NP Phone: tel: fax: Referral ID Status Reason Start Date Expiration Date Visits Re quested Visits Authorized [id number] Closed 06/20/2022 07/20/2023 1 1 Encounter Details Date Type Department Care Team (Late st Contact Info) Description 08/31/2019 Hospital Encounter [facility] Radiology [facility] [address] [place], [place] [id number] Social History Tobacco Use Types Packs/Day Years [...] on file 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 Radiology. There will be no report generated by a [facility] Radiologist. Narrative [facility]MO[facility] - 06/20/2022 8:54 AM CDT EXAMINATION: Images For Reference Purposes Only us Angela Vaughan NP IMG MAMMO PROCEDURES Final Result [facility] documented in this encounter Visit Diagnoses Not on filedocumented in this encounter Care Teams R&D Lab Technician Relationship Specialty Start Date End Date No, Physician PCP - General 06/16/19 09/29/21 documented as of this encounter
--- OUTSIDE RECORDS SUMMARY | 2019-09-09 | XMS_ITS | Encounter Summary ---
Author Organization [facility] Healthcare Address [address] [place] [address] Care Team Providers Care Filter Press Tender Name Role Phone No, Physician Primary Care Provider [phone] Reason for Visit * Diagnostic Imaging (Routine) - Closed Specialty Diagnoses / Procedures Referred By Jim hopper Referred To Contact Procedures Breast Imaging US Outside Reference Angela Vaughan NP Phone: tel: fax: Referral ID Status Reason Start Date Expiration Date Visits Re quested Visits Authorized [id number] Closed 06/20/2022 07/20/2023 1 1 Encounter Details Date Type Department Care Team (Late st Contact Info) Description 09/09/2019 Hospital Encounter [facility] Radiology [facility] [address] [place] [address] Social History Tobacco Use Types [...] on file 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 There will be no report generated by a [facility] Radiologist. Narrative RAD_M[facility]MO[facility] - 06/20/2022 8:54 AM CDT EXAMINATION: Images For Reference Purposes Only us Angela Vaughan NP IMG MAMMO PROCEDURES Final Result [facility] documented in this encounter Visit Diagnoses Not on filedocumented in this encounter Care Teams Filter Press Tender Relationship Specialty Start Date End Date No, Physician PCP - General 06/16/19 09/29/21 documented as of this encounter
--- OUTSIDE RECORDS SUMMARY | 2019-09-09 00:05 | XMS_ITS | Encounter Summary ---
Author Organization [facility] Healthcare Address [address] [place] [address] Care Team Providers Care Non Destructive Testing Scientist Name Role Phone No, Physician Primary Care Provider [phone] Reason for Visit * Diagnostic Imaging (Routine) - Closed Specialty Diagnoses / Procedures Referred By Jim hopper Referred To Contact Procedures Breast Imaging Diagnostic Outside Reference Angela Vaughan NP Phone: tel: fax: Referral ID Status Reason Start Date Expiration Date Visits Re quested Visits Authorized [id number] Closed 06/20/2022 07/20/2023 1 1 Encounter Details Date Type Department Care Team (Late st Contact Info) Description 09/09/2019 12:05 AM CDT Hospital Encounter [facility] Radiology [facility] [address] [place] [address] Social History Tobacco Use Types [...] on file 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 There will be no report generated by a [facility] Radiologist. Narrative RAD_MAMMO[facility] - 06/20/2022 8:54 AM CDT EXAMINATION: Images For Reference Purposes Only us Angela Vaughan NP IMG MAMMO PROCEDURES Final Result [facility] documented in this encounter Visit Diagnoses Not on filedocumented in this encounter Care Teams Non Destructive Testing Scientist Relationship Specialty Start Date End Date No, Physician PCP - General 06/16/19 09/29/21 documented as of this encounter
--- NOTE | 2024-12-06 | S_PTH ---
PATIENT: Alea Hawk LOC: [facility] U#:[id number] AGE/SX: 44/F ROOM: RE12/06/[address]: Talon Monsalve MD : 1980 BED: DIS: 12/06/2024 SPEC #: [id number] RECD: 12/07/24 11:42 STATUS: VINCE REQ #: [id number] IVA: 12/06/24 00:[address]: Talon Monsalve DEPT: [facility] Surgical RECD BY: Vita Cervantes ENTERED: 12/07/24 11:43 SP TYPE: Surgical OTHR DR: Belen Bella APRN Tissues: A - Colon Biopsy B - Colon Biopsy Procedures: Hematoxylin and Eosin Stain Gross and Microscopic Level 4
--- OUTSIDE RECORDS SUMMARY | 2024-12-07 12:26 | XMS_ITS | Encounter Summary ---
Author Organization [facility] Address [address] [facility] [place] [address] Care Team Providers Care Tire Installer Name Role Phone Belen Bella RENU-NUCLEAR OPERATIONS SPECIALIST Primary Care Provider + Encounter Details Date Type Department Care Team (Late Contact Info) Description 10/25/2024 Results Follow-Up [facility] - Rheumatology [address] [place] [address], [address] [place] [address] Chantelle Forbes MD [address] [place] [phone] Social History Tobacco Use Types Packs/Day [...] AM CDT Legal Sex Female 2:15 PM HR ADMINISTRATIVE ASSISTANT Gender Identity Female 07/10/2020 8:48 AM CDT Sexual Orientation Not on file documented as of this encounter Plan of Treatment Upcoming Encounters Date Type Department Care Team (Late Contact Info) Description 02/02/2025 3:20 PM HR ADMINISTRATIVE ASSISTANT Office Visit [facility] - Rheumatology [address] [place] [address], [address] [place] [address] Chantelle Forbes MD [address] [facility] [place] [address] documented as of this encounter Visit Diagnoses Not on filedocumented in this encounter Care Teams Tire Installer Relationship Specialty Start Date End Date Belen Bella APRN-NUCLEAR OPERATIONS SPECIALIST [facility] [place] [address] PCP - General Nurse Practitioner 02/10/23 documented as of this encounter
--- OUTSIDE RECORDS SUMMARY | 2024-12-07 12:26 | XMS_ITS | Encounter Summary ---
Author Organization [facility] Address [address] [facility] [place] [address] Care Team Providers Care Boring Machine Operator Helper Name Role Phone Nidhi Peck MD Primary Care Provider [phone] Belen Bella Primary Care Provider + Nidhi Peck MD Primary Care Provider [phone] Belen Bella Primary Care Provider + Dawit Mayorga MD Primary Care Provider + [phone] Belen Bella Primary Care Provider + Encounter Details Date Type Department Care Team (Late st Contact Info) Description 11/16/2018 Lab Requisition [facility] [address] [facility], [place] [phone] Goff DO [address] [facility] [address] [place] [address] Social History Tobacco Use Types Packs/Day Years Used Date Smoking Tobacco: Former Cigarettes Smokeless Tobacco: Never Alcohol Use Standard Drinks/Week Comments No 0 (1 standard drink = 0.6 oz pur e alcohol) Comments Unknown Sex and Gender Information Value Date Recorded Sex Assigned at Female 07/10/2020 8:48 AM CDT Legal Sex Female 2:15 PM NUTRITION SERVICES ASSOCIATE Gender Identity Female 07/10/2020 8:48 AM CDT Sexual Orientation Not on file documented as of this encounter Plan of Treatment Upcoming Encounters Date Type Department Care Team (Late st Contact Info) Description 02/02/2025 3:20 PM NUTRITION SERVICES ASSOCIATE Office Visit [facility] - Rheumatology [address], [address] [place] [address] Chantelle Forbes MD [address] [place] [address] documented as of this encounter Procedures Procedure Name Priority Date/Time Associated Diagnosis Comments DERMATOPATH TECHNICAL REPORT Routine 11/16/2018 12:00 AM CDT documented in this encounter Results * DERMATOPATH TECHNICAL REPORT (11/16/2018 12:00 AM CDT) Case Report Dermatopathology Report Case: [id number] Authorizing Provider: Ave Goff DO Collected: 11/16/2018 12:00 AM Ordering Location: [facility] Lab Received: 11/16/2018 12:06 PM Pathologist: Johana Adame MD Specimen: Skin, right ankle 9 1:43 PM CDT DERMATOPATHOLOGY LABORATORY Addendum 1 At the request of the diagnosing physician, the technical component for GMS was performed by [facility] Dermatopathology [facility]. 9 1:43 PM CDT DERMATOPATHOLOGY [...] shave biopsy measuring 9x7x2 mm. Jar 0. [facility]ermat[facility] performed the technical component only. [...] characteristic determined by the Dermatopathology Laboratory at [facility], directed by Dr. Mike Pérez. These tests [...] ORDERABLES Edited Result - Final DERMATOPATHOLOGY LABORATORY [facility] - Department of Dermatology [address] [place] [address], 5th Floor Lab [address] [phone] documented in this encounter Visit Diagnoses Not on filedocumented in this encounter Care Teams Boring Machine Operator Helper Relationship Specialty Start Date End Date Nidhi Peck MD PCP - General 10/10/11 03/16/19 Belen Bella APRN-MUD ANALYSIS OPERATOR [address] [address] PCP - General Nurse Practitioner 03/17/19 12/04/20 Nidhi Peck MD PCP - General 12/05/20 07/01/21 Belen Bella APRN-MUD ANALYSIS OPERATOR [address] [place] [phone] PCP - General Nurse Practitioner 07/02/21 04/30/22 Dawit Mayorga MD [address] [place] [phone] PCP - General Family Medicine 05/01/22 02/09/23 Belen Bella APRN-MUD ANALYSIS OPERATOR [address] [place] [address] PCP - General Nurse Practitioner 02/10/23 documented as of this encounter
--- OUTSIDE RECORDS SUMMARY | 2024-12-07 12:26 | XMS_ITS | Clinical Summary ---
Author Organization [facility] Azul Nicholson Address [address] [place] [address] Care Team Providers Care Dental Hygienist Name Role Phone Unavailable Primary Care Provider [...] Comments Blood Pressure 137/87 03/05/2022 1:12 PM RELAY ASSEMBLER Pulse 95 03/05/2022 1:12 PM RELAY ASSEMBLER Temperature 36.7 C (98 F) 03/05/2022 1:12 PM RELAY ASSEMBLER Respiratory Rate 14 03/05/2022 1:12 PM RELAY ASSEMBLER Oxygen Saturation 97% 03/05/2022 1:12 PM RELAY ASSEMBLER Inhaled Oxygen Concentration - - Weight 85.3 kg (188 lb) 03/05/2022 1:12 PM RELAY ASSEMBLER Height 157.5 cm (5' 2) 11/29/2021 1:05 [...]
--- OUTSIDE RECORDS SUMMARY | 2024-12-07 12:27 | XMS_ITS | Clinical Summary ---
Author Organization [email or web address] Address [address] [place] [address] Care Team Providers Care Hogshead Wrecker Name Role Phone Belen Bella RENU-SERVICE VEHICLE OPERATOR Primary Care Provider + Source Comments [facility],non-owned Affiliates and Associated Physician Practices is amultiple site organization consisting of ambulatory clinics and hospital sitesin [place], [place], [place] and [place]. This disclosure is being madepursuant to the Care Everywhere program and may not contain all information available regarding this patient. Last updated 17.[facility] [email or web address] Allergies Active Allergy Reactions Criticality Noted Date [...] (ten) tablets by mouth once daily Active [place]-3 Fatty Acids (fish oil) 1000 MG capsule [...] Department Care Team Description 10/25/2024 Results Follow-Up [facility] Rheumatology [address] [place] [address], [address] [place] [phone] Chantelle Forbes MD 10/20/[address], [address] [place] [phone] Chantelle Forbes MD Refill Request 10/04/2024 Refill [facility] Rheumatology [address] [place] [address] Chantelle Forbes MD Refill Request (Rinvoq) 10/04/[address], [address] [place] [address] Chantelle Forbes MD Medication Prior Auth Request 09/22/2024 3:20 PM CDT Office Visit [address], [address] [place] [address] Chantelle Forbes MD Abnormal LFTs [...] AM CDT Legal Sex Female 2:15 PM FAST FOODS WORKER Gender Identity Female 07/10/2020 8:48 AM CDT [...] st Contact Info) Description 02/02/2025 3:20 PM FAST FOODS WORKER Office Visit [facility] - Rheumatology [address] [facility], [address] [place] [address] Chantelle Forbes MD [address] [place] [address] Health Maintenance Due Date Last [...] SCREEN ACUTE ([facility]) Routine 04/06/2024 1:01 PM FAST FOODS WORKER Seronegative rheumatoid arthritis from Last 3 Months or Most Recently Relevant to Health Maintenance Results * C-REACTIVE PROTEIN (10/22/2024 8:03 AM CDT) Pathologist [facility] C-Reactive Protein <1 0 - 10 mg/L [facility] ACCOUNT BILL Blood BLOOD SPECIMEN / Unknown 10/22/2024 8:03 AM CDT 10/22/2024 Narrative [facility] ACCOUNT BILL - 10/23/2024 9:10 AM CDT Performed at: - [facility] [id number] Marine Electrician Apprentice: Shayne Garrett PhD, Phone: [phone] us Chantelle Forbes MD LAB - CHEMISTRY ORDERABLES Final Result [facility] ACCOUNT BILL [address] [place] [address] * (ABNORMAL) DANN BLOOD SCREEN W/REFLEX TITER (10/22/2024 8:03 AM CDT) DANN Positive(A) [facility] ACCOUNT BILL Comment: Negative <1:80 Borderline 1:80 Positive >1:80 Performed at: 01 - [facility] [address] [id number] Marine Electrician Apprentice: Shayne Garrett PhD, Phone: [phone] Speckled Pattern 1:160(H) LAB [facility] ACCOUNT BILL Comment:ICAP nomenclature: A C-2,4,5,29 Note Comment [facility] ACCOUNT BILL Comment: Pattern Potential Disease Association Homogeneous Systemic Lupus Erythematosus, Drug Induced Systemic Lupus Erythematosus, Chronic Autoimmune hepatitis, Juvenile Idiopathic Arthritis Speckled Sjogren Syndrome, Systemic Lupus Erythematosus, Subacute Cutaneous Lupus, Lupus, Congenital Heart Block, Mixed Connective Tissue Disease, Scleroderma-diffuse, Scleroderma-Autoimmune Myositis Overlap Syndrome, Systemic Lupus Fghvbbjogltyh-Tfuqeculevv-Uvhqszhdow Myositis Overlap Syndrome, Systemic Autoimmune Rheumatic Disease, [...] - 10/26/2024 5:09 PM CDT Performed at: [address] [place], [place] [address] Marine Electrician Apprentice: Shayne Garrett PhD, Phone: [phone] Chatnelle Forbes MD LAB - CHEMISTRY ORDERABLES Final Result Performing Organization Address City/[facility] Co de Phone Number [facility] ACCOUNT BILL [address] [place] [address] * ERYTHROCYTE SEDIMENTATION RATE (10/22/2024 8:03 AM CDT) Pathologist [facility] Erythrocyte Sedimentation Rate Westergren 9 0 - 32 mm/hr [facility] ACCOUNT BILL Blood BLOOD SPECIMEN / Unknown 10/22/2024 8:03 AM CDT 10/22/2024 Narrative [facility] ACCOUNT BILL - 10/23/2024 8:11 AM CDT Performed at: [address] [place] [id number] Marine Electrician Apprentice: Shayne Garrett PhD, Phone: [phone] Chantelle Forbes MD LAB - HEMATOLOGY ORDERABLES Joycelyn l Result Performing Organization Address City/[facility]/ZIP Co de Phone Number [facility] ACCOUNT BILL [address] [place] [address] * (ABNORMAL) CBC WITH DIFFERENTIAL (10/22/2024 8:03 [...] 7:09 AM CDT Performed at: 01 - [address] [id number] Marine Electrician Apprentice: Shayne Garrett PhD, Phone: [phone] us Chantelle Forbes MD LAB - HEMATOLOGY ORDERABLES Joycelyn l Result Performing Organization Address City/State/[facility] Co de Phone Number [facility] ACCOUNT BILL [address] [place] [address] * COMPREHENSIVE METABOLIC PANEL (10/22/2024 8:03 AM CDT) Pathologist [facility] Glucose 88 70 - 99 mg/dL [facility] [...] 7:09 AM CDT Performed at: 01 - [facility] [id number] Marine Electrician Apprentice: Shayne Garrett PhD, Phone: [phone] Chantelle Forbes MD LAB - CHEMISTRY ORDERABLES Final Result [facility] ACCOUNT BILL [address] [place] [address] * COMPLEMENT C3 C4 PANEL (10/22/2024 8:03 AM CDT) Complement C3 121 82 - 167 mg/dL [facility] ACCOUNT BILL Complement C4 18 12 - 38 mg/dL [facility] ACCOUNT BILL Blood BLOOD SPECIMEN / Unknown 10/22/2024 8:03 AM CDT 10/22/2024 Narrative [facility] ACCOUNT BILL - 10/23/2024 9:10 AM CDT Performed at: 01 - [facility] [id number] Marine Electrician Apprentice: Shayne Garrett PhD, Phone: [phone] Chantelle Forbes MD LAB - CHEMISTRY ORDERABLES Final Result Performing Organization Address City/[facility]/ZIP Co de Phone Number [facility] ACCOUNT BILL [address] [place] [address] * (ABNORMAL) INFLAMMATORY BOWEL DISEASE PANEL (10/22/2024 [...] 10/25/2024 5:09 PM CDT Performed at: - [facility] [id number] Marine Electrician Apprentice: Margarito Mo MD, Phone: [phone] Performed at: - [facility] [id number] Marine Electrician Apprentice: Shayne Garrett PhD, Phone: [phone] Chantelle Forbes MD LAB - CHEMISTRY ORDERABLES Final Result [facility] ACCOUNT BILL [address] [place] [address] * HEPATITIS SCREEN ACUTE ([facility]) (04/06/2024 1:01 PM FAST FOODS WORKER) [facility] Hepatitis A Virus Antibody IgM Negative Negative [facility] ACCOUNT BILL Comment: A negative anti-HAV IgM result suggests no recent or current HAV infection. Hepatitis B Virus Surface Antigen Negative Negative [facility] ACCOUNT BILL Hepatitis B Core Virus Antibody IgM Negative Negative [facility] ACCOUNT BILL Hepatitis C Antibody Non Reactive Non Reactive [facility] ACCOUNT BILL Comment: Performed at: - [facility] [id number] Marine Electrician Apprentice: Shayne Garrett PhD, Phone: [phone] Interpretation Comment [facility] ACCOUNT BILL Comment: Not infected with HCV unless early or acute infection is suspected (which may be delayed in an immunocompromised individual), or other evidence exists to indicate HCV infection. Blood BLOOD SPECIMEN / Unknown 04/06/2024 1:01 PM FAST FOODS WORKER 04/06/2024 Narrative [facility] ACCOUNT BILL - 04/07/2024 7:09 AM FAST FOODS WORKER Performed at: [facility] [id number] Marine Electrician Apprentice: Shayne Garrett PhD, Phone: [phone] Chantelle Forbes MD LAB - CHEMISTRY ORDERABLES Final Result [facility] ACCOUNT BILL [address] [place] [address] from Last 3 Months or Most Recently Relevant to Health Maintenance Insurance HEALTH CARE [facility] CARE [facility] CARE SELF PAY NO INSURANCE Member Subscriber Plan / Payer (Ef fective for All Dates) Name:Yael Hawk Member ID:Not on file Relation to Subscriber:Not on file Name:LARSYAEL Subscriber ID:Not on file Address: [address] [place] [address] Payer ID:Not on file Group ID:Not on file Type:Self Pay Address: [place], [place] HEALTH CARE SELF PAY NO INSURANCE Member Subscriber Plan / Payer (Ef fective for All Dates) Name:Yael Hawk Member ID:Not on file Relation to Subscriber:Not on file Name:YAEL HAWK Subscriber ID:Not on file Address: [address] [place] [address] Payer ID:Not on file Group ID:Not on file Type:Self Pay Address: [place], [place] HEALTH CARE SELF PAY NO INSURANCE Member Subscriber Plan / Payer (Ef fective for All Dates) Name:Yael Hawk Member ID:Not on file Relation to Subscriber:Not on file Name:YAEL HAWK Subscriber ID:Not on file Address: [address] [place] [id number] Payer ID:Not on file Group ID:Not on file Type:Self Pay Address: [place], [place] Care Teams Hogshead Wrecker Relationship Specialty Start Date End Date Belen Bella APRN-LATA [facility] [place] [phone] PCP - General Nurse Practitioner 02/10/23
--- OUTSIDE RECORDS SUMMARY | 2024-12-07 12:27 | XMS_ITS | Clinical Summary ---
Author Organization [facility] Address [address] [place] [address] Care Team Providers Care Stock Turner Name Role Phone Dawit Mayorga MD Primary Care Provider [phone] Chantelle Forbes MD Unavailable Carmine Mistry MD Unavailable Jaz Cool QUARRY BOSS Unavailable [phone] Ludy Fung DC Unavailable King Larios MD Unavailable [phone] Ilene Perrin QUARRY BOSS Unavailable [phone] Allergies Active Allergy Reactions Criticality Noted Date [...] 03/18/2022 Assessment & Plan (03/18/2022 2:37 PM SUPERVISOR PAINT): A(n) initial well visit to establish care [...] - 10/22/2024 11:59 PM CDT Hospital Encounter [facility] [address] [place] [address] Other specified abnormal findings of blood chemistry [...] on file Legal Sex Female 11:35 AM SUPERVISOR PAINT Gender Identity Not on file Sexual Orientation [...] CDT Respiratory Rate 18 03/14/2022 12:46 PM SUPERVISOR PAINT Oxygen Saturation 98% 09/12/2022 12:32 PM CDT [...] Taqueria Young M.D. KT: MARILU Report ID: [id number] Reading Location: [id number] Procedure Note Taqueria Young MD - 11/03/2024 [...] Taqueria Young M.D. KT: MARILU Report ID: [id number] Reading Location: [id number] us Chantelle Forbes MD [facility] US PROCEDURES Final Result * Screening Mammogram [...] compared to prior imaging studies performed at [facility] on 03/27/2023, and at [facility] [place], [place] on 11/26/2021 and 05/17/2022. There are [...] compared to prior imaging studies performed at [facility] on 03/27/2023, and at [facility]. [place], [place] on 11/26/2021 and 05/17/2022. There are scattered areas of fibroglandular density. There is no suspicious abnormality in either breast. Impression: There is no mammographic evidence of malignancy. Annual screening mammography is recommended. OVERALL FINAL ASSESSMENT: BI-RADS CATEGORY 1: Negative. Marsha Ware NP IMG MAMMO PROCEDURES Final Result from Last 3 Months or Most Recently Relevant to Health Maintenance Insurance [facility] CHOICE PLUS [facility] HMO/PPO Address: [place] [address] CHOICE PLUS [facility] HMO/PPO Address: [place] [address] CHOICE PLUS [facility] HMO/PPO Address: [place] [address] Care Teams Stock Turner Relationship Specialty [place] [address] [place] [address] PCP - General Family Medicine 03/14/22 Chantelle Forbes MD [address] [place] [address] Referring Physician Rheumatology 03/14/22 [place] [address] [address] Consulting Physician Cardiology 03/14/22 [place] [address] [address] Nurse Practitioner Nurse Practitioner 03/14/22 Ludy Fung DC [address] [place], [place] [id number] Chiropractic Medicine 03/14/22 King Larios MD [address] [place] [address] Referring Physician Hematology 03/14/22 Ilene Perrin NP [address] [place] [address] Referring Physician Obstetrics and Gynecology 05/27/22
--- OUTSIDE RECORDS SUMMARY | 2024-12-07 12:27 | XMS_ITS | Clinical Summary ---
Author Organization [facility] Care Team Providers Care Lawn Care Professional Name Role Phone Belen Bella APRN Primary Care Provider [phone] Allergies Active Allergy Reactions Criticality Noted Date [...] JOIE TO RASH BID 2 9 Active [place]-3 Fatty Acids (FISH OIL PO) Take 1 [...] Priority Date/Time Associated Diagnosis Comments PATHOLOGY CYTOLOGY OUTSOLE PARAFFINER Routine 12/07/2014 from Last 3 Months or Most Recently Relevant to Health Maintenance Results * PATHOLOGY CYTOLOGY OUTSOLE PARAFFINER (12/07/2014) Specimen of unknown material (specimen) us Historical Provider PATHOLOGY/CYTOLOGY ORDERA BLES Final Result from Last 3 Months or Most Recently Relevant to Health Maintenance Care Teams Lawn Care Professional Relationship Specialty Start Date End Date Belen Bella APRN PCP - General Advanced Practice Nurse 01/16/19
== END 2024-12-06 11:12 | disposition home or self-care (01) ==
LOC: ANHLAB 12-07 11:13
PROVIDERS: PCP Nurse Practitioner Adult Health; Visit Provider Internal Medicine Gastroenterology
DX: R19.7 Diarrhea, unspecified (principal)
CPT/HCPCS: 88305

== ENCOUNTER 2024-12-29 09:32 | Outpatient (CLI) | payer OTHER, SELFPAY ==
--- OUTSIDE RECORDS SUMMARY | 2018-07-23 | XMS_ITS | Encounter Summary ---
Author Organization [facility] Healthcare Address [address] [place] [address] Care Team Providers Care Content Development Specialist Name Role Phone Belen Bella NP Primary Care Provider [phone] Reason for Visit * Diagnostic Imaging (Routine) - Closed Specialty Diagnoses / Procedures Referred By Contestefany hopper Referred To Contact Procedures Breast Imaging Screening Outside Reference Angela Vaughan NP Phone: tel: fax: Referral ID Status Reason Start Date Expiration Date Visits Re quested Visits Authorized [id number] Closed 06/20/2022 07/20/2023 1 1 Encounter Details Date Type Department Care Team (Late st Contact Info) Description 07/23/[address] 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 There will be no report generated by a [facility] Radiologist. Narrative [facility] - 06/20/2022 8:56 AM CDT EXAMINATION: Images For Reference Purposes Only us Angela Vaughan NP IMG MAMMO PROCEDURES Final Result [facility] documented in this encounter Visit Diagnoses Not on filedocumented in this encounter Care Teams Content Development Specialist Relationship Specialty Start Date End Date Belen Bella NP PCP - General 12/30/17 06/14/19 documented as of this encounter
--- OUTSIDE RECORDS SUMMARY | 2019-08-31 | XMS_ITS | Encounter Summary ---
Author Organization [facility] Healthcare Address [address] [place] [address] Care Team Providers Care Wide Area Network Administrator Name Role Phone No, Physician Primary Care Provider [phone] Reason for Visit * Diagnostic Imaging (Routine) - Closed Specialty Diagnoses / Procedures Referred By Jim hopper Referred To Contact Procedures Breast Imaging Screening Outside Reference Angela Vaughan NP Phone: tel: fax: Referral ID Status Reason Start Date Expiration Date Visits Re quested Visits Authorized [id number] Closed 06/20/2022 07/20/2023 1 1 Encounter Details Date Type Department Care Team (Late st Contact Info) Description 08/31/[address] 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 There will be no report generated by a [facility] Radiologist. Narrative [facility]_MAMMO[facility] - 06/20/2022 8:54 AM CDT EXAMINATION: Images For Reference Purposes Only us Angela Vaughan NP IMG MAMMO PROCEDURES Final Result [facility] documented in this encounter Visit Diagnoses Not on filedocumented in this encounter Care Teams Wide Area Network Administrator Relationship Specialty Start Date End Date No, Physician PCP - General 06/16/19 09/29/21 documented as of this encounter
--- OUTSIDE RECORDS SUMMARY | 2019-09-09 | XMS_ITS | Encounter Summary ---
Author Organization [facility] Healthcare Address [address] [place] [address] Care Team Providers Care Prize Coordinator Name Role Phone No, Physician Primary Care Provider [phone] Reason for Visit * Diagnostic Imaging (Routine) - Closed Specialty Diagnoses / Procedures Referred By Jim hopper Referred To Contact Procedures Breast Imaging US Outside Reference Angela Vaughan NP Phone: tel: fax: Referral ID Status Reason Start Date Expiration Date Visits Re quested Visits Authorized [id number] Closed 06/20/2022 07/20/2023 1 1 Encounter Details Date Type Department Care Team (Late st Contact Info) Description 09/09/2019 Hospital Encounter [facility] Radiology [facility] [address] [place] [address] Social History Tobacco Use Types [...] on file 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 There will be no report generated by a [facility] Radiologist. Narrative RAD_M[facility]MO[facility] - 06/20/2022 8:54 AM CDT EXAMINATION: Images For Reference Purposes Only us Angela Vaughan NP IMG MAMMO PROCEDURES Final Result [facility] documented in this encounter Visit Diagnoses Not on filedocumented in this encounter Care Teams Prize Coordinator Relationship Specialty Start Date End Date No, Physician PCP - General 06/16/19 09/29/21 documented as of this encounter
--- OUTSIDE RECORDS SUMMARY | 2019-09-09 00:05 | XMS_ITS | Encounter Summary ---
Author Organization [facility] Healthcare Address [address] [place] [address] Care Team Providers Care Cradle Placer Name Role Phone No, Physician Primary Care Provider [phone] Reason for Visit * Diagnostic Imaging (Routine) - Closed Specialty Diagnoses / Procedures Referred By Jim hopper Referred To Contact Procedures Breast Imaging Diagnostic Outside Reference Angela Vaughan NP Phone: tel: fax: Referral ID Status Reason Start Date Expiration Date Visits Re quested Visits Authorized [id number] Closed 06/20/2022 07/20/2023 1 1 Encounter Details Date Type Department Care Team (Late st Contact Info) Description 09/09/2019 12:05 AM CDT Hospital Encounter [facility] Radiology [facility] [address] [place] [address] Social History Tobacco Use Types [...] on file 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 Gender Identity Not on file Sexual Orientation Not on file 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 on file Not on file Not on file documented as of this encounter Functional Status * AUDIT-C Score Answer Date of Assessment Author 2 07/04/2022 9:16 AM Anushka Lorenz CMA * Question Answer Date of Assessment [...] Date/Time Associated Diagnosis Comments BREAST IMAGING MG DIAGNOSTIC OUTSIDE REFERENCE Routine 09/09/2019 12:05 AM CDT documented in this encounter Results * Breast Imaging Diagnostic Outside Reference (09/09/2019 12:05 AM CDT) Impressions [facility] - 06/20/2022 8:54 AM CDT These images are for Reference purposes only and have not been reviewed by [facility] Radiology. There will be no report generated by a [facility] Radiologist. Narrative RAD_M[facility]MO[facility] - 06/20/2022 8:54 AM CDT EXAMINATION: Images For Reference Purposes Only us Angela Vaughan NP IMG MAMMO PROCEDURES Final Result [facility] documented in this encounter Visit Diagnoses Not on filedocumented in this encounter Care Teams Cradle Placer Relationship Specialty Start Date End Date No, Physician PCP - General 06/16/19 09/29/21 documented as of this encounter
--- NOTE | ~2024-12-29 | US_ITS ---
EXAMINATION:US venous doppler LE RT INDICATION:Pain in the right lower leg TECHNIQUE: Multiple grayscale, color flow and Doppler images of the right lower extremity deep venous systems were obtained and reviewed. COMPARISON:None available FINDINGS: The right common femoral, superficial femoral and popliteal veins demonstrate normal respiratory variation, augmentation and compressibility. Color flow is also seen within the posterior tibial, peroneal, greater saphenous and profunda veins. IMPRESSION: 1: No right lower extremity deep venous thrombosis. If symptoms persist or worsen, consider a short-term follow-up study or additional imaging for further assessment. Reviewed, dictated and finalized at location Q. IMPRESSION: 1: No right lower extremity deep venous thrombosis. If symptoms persist or worsen, consider a short-term follow-up study or additio nal imaging for further assessment.
--- OUTSIDE RECORDS SUMMARY | 2024-12-29 10:25 | XMS_ITS | Clinical Summary ---
Author Organization [facility] Azul Nicholson Address [address] [place] [address] Care Team Providers Care Bellperson Name Role Phone Unavailable Primary Care Provider [...] Comments Blood Pressure 137/87 03/05/2022 1:12 PM MECHANICAL UNIT REPAIRER Pulse 95 03/05/2022 1:12 PM MECHANICAL UNIT REPAIRER Temperature 36.7 C (98 F) 03/05/2022 1:12 PM MECHANICAL UNIT REPAIRER Respiratory Rate 14 03/05/2022 1:12 PM MECHANICAL UNIT REPAIRER Oxygen Saturation 97% 03/05/2022 1:12 PM MECHANICAL UNIT REPAIRER Inhaled Oxygen Concentration - - Weight 85.3 kg (188 lb) 03/05/2022 1:12 PM MECHANICAL UNIT REPAIRER Height 157.5 cm (5' 2) 11/29/2021 1:05 [...]
--- OUTSIDE RECORDS SUMMARY | 2024-12-29 10:25 | XMS_ITS | Encounter Summary ---
Author Organization [facility] Address [address] [facility] [place] [address] Care Team Providers Care Protection Mgr Name Role Phone Nidhi Peck MD Primary Care Provider [phone] Belen Bella Primary Care Provider + Nidhi Peck MD Primary Care Provider [phone] Belen Bella Primary Care Provider + Dawit Mayorga MD Primary Care Provider [phone] Belen Bella Primary Care Provider + Encounter Details Date Type Department Care Team (Late st Contact Info) Description 11/16/2018 Lab Requisition [facility] [address] [facility], [place] [id number] Ave Goff DO [address] [facility] [address] [place] [address] Social History Tobacco Use Types Packs/Day Years Used Date Smoking Tobacco: Former Cigarettes Smokeless Tobacco: Never Alcohol Use Standard Drinks/Week Comments No 0 (1 standard drink = 0.6 oz pur e alcohol) Comments Unknown Sex and Gender Information Value Date Recorded Sex Assigned at Female 07/10/2020 8:48 AM CDT Legal Sex Female 2:15 PM PENSION ADMINISTRATOR Gender Identity Female 07/10/2020 8:48 AM CDT Sexual Orientation Not on file documented as of this encounter Plan of Treatment Upcoming Encounters Date Type Department Care Team (Late st Contact Info) Description 02/02/2025 3:20 PM PENSION ADMINISTRATOR Office Visit [facility] - Rheumatology [address], [address] [place] [address] Chantelle Forbes MD [address] [place] [address] documented as of this encounter Procedures Procedure Name Priority Date/Time Associated Diagnosis Comments DERMATOPATH TECHNICAL REPORT Routine 11/16/2018 12:00 AM CDT documented in this encounter Results * DERMATOPATH TECHNICAL REPORT (11/16/2018 12:00 AM CDT) Case Report Dermatopathology Report Case: [id number] Authorizing Provider: Ave Goff DO Collected: 11/16/2018 12:00 AM Ordering Location: [facility] Lab Received: 11/16/2018 12:06 PM Pathologist: Johana Adame MD Specimen: Skin, right ankle 9 1:43 PM CDT DERMATOPATHOLOGY LABORATORY Addendum 1 At the request of the diagnosing physician, the technical component for GMS was performed by [facility] Dermatopathology [facility]. 9 1:43 PM CDT DERMATOPATHOLOGY [...] shave biopsy measuring 9x7x2 mm. Jar 0. [facility] performed the technical component only. [...] characteristic determined by the Dermatopathology Laboratory at [facility], directed by Dr. Mike Pérez. These tests [...] ORDERABLES Edited Result - Final DERMATOPATHOLOGY LABORATORY [facility] - Department of Dermatology [address] [place] [address], 5th Floor Lab [address] [phone] documented in this encounter Visit Diagnoses Not on filedocumented in this encounter Care Teams Protection Mgr Relationship Specialty Start Date End Date Nidhi Peck MD PCP - General 10/10/11 03/16/19 Belen Bella APRN-LEDGER CLERK [address] [address] PCP - General Nurse Practitioner 03/17/19 12/04/20 Nidhi Peck MD PCP - General 12/05/20 07/01/21 Belen Bella APRN-LEDGER CLERK [address] [place] [phone] PCP - General Nurse Practitioner 07/02/21 04/30/22 Dawit Mayorga MD [address] [place] [phone] PCP - General Family Medicine 05/01/22 02/09/23 Belen Bella APRN-LEDGER CLERK [address] [place] [address] PCP - General Nurse Practitioner 02/10/23 documented as of this encounter
--- OUTSIDE RECORDS SUMMARY | 2024-12-29 10:26 | XMS_ITS | Clinical Summary ---
Author Organization [facility] Address [address] [place] [address] Care Team Providers Care Optical Laboratory Technician Name Role Phone Dawit Mayorga MD Primary Care Provider [phone] Chantelle Forbes MD Unavailable Carmine Mistry MD Unavailable Jaz Cool POCKET OPERATOR Unavailable [phone] Ludy Fung DC Unavailable King Larios MD Unavailable [phone] Ilene Perrin POCKET OPERATOR Unavailable [phone] Allergies Active Allergy Reactions Criticality Noted Date [...] 03/18/2022 Assessment & Plan (03/18/2022 2:37 PM PAPER FINAL INSPECTOR): A(n) initial well visit to establish care [...] - 10/22/2024 11:59 PM CDT Hospital Encounter [facility] [address] [place] [address] Other specified abnormal findings of blood chemistry [...] on file Legal Sex Female 11:35 AM PAPER FINAL INSPECTOR Gender Identity Not on file Sexual Orientation [...] CDT Respiratory Rate 18 03/14/2022 12:46 PM PAPER FINAL INSPECTOR Oxygen Saturation 98% 09/12/2022 12:32 PM CDT [...] Taqueria Young M.D. KT: MARILU Report ID: [id number] Reading Location: [id number] Procedure Note Taqueria Young MD - 11/03/2024 [...] Taqueria Young M.D. KT: MARILU Report ID: [id number] Reading Location: [id number] us Chantelle Forbes MD [facility] US PROCEDURES Final Result * Screening Mammogram [...] compared to prior imaging studies performed at [facility] on 03/27/2023, and at [facility]. [place], [place] on 11/26/2021 and 05/17/2022. There are [...] compared to prior imaging studies performed at [facility] on 03/27/2023, and at [facility]. [place], [place] on 11/26/2021 and 05/17/2022. There are scattered areas of fibroglandular density. There is no suspicious abnormality in either breast. Impression: There is no mammographic evidence of malignancy. Annual screening mammography is recommended. OVERALL FINAL ASSESSMENT: BI-RADS CATEGORY 1: Negative. Marsha Ware NP IMG MAMMO PROCEDURES Final Result from Last 3 Months or Most Recently Relevant to Health Maintenance Insurance [facility] [facility]/PPO Address: [place] [address] [facility] Address: [place] [address] [facility]O Address: [place] [address] Care Teams Optical Laboratory Technician Relationship Specialty [place] [address] [place] [address] PCP - General Family Medicine 03/14/22 Chantelle Forbes MD [address] [place] [address] Referring Physician Rheumatology 03/14/22 [place] [address] [address] Consulting Physician Cardiology 03/14/22 [place] [address] [address] Nurse Practitioner Nurse Practitioner 03/14/22 Ludy Fung DC [address] [place], [place] [id number] Chiropractic Medicine 03/14/22 King Larios MD [address] [place] [address] Referring Physician Hematology 03/14/22 Ilene Perrin NP [address] [place] [address] Referring Physician Obstetrics and Gynecology 05/27/22
--- OUTSIDE RECORDS SUMMARY | 2024-12-29 10:26 | XMS_ITS | Data Portability ---
Author Organization [facility] Address [address] [place] [address] Care Team Providers Care Elastic Cutter Name Role Phone TRISTON SEGUNDO Primary Care Provider [phone] LELA FERNANDO Primary Care Provider Assessment No assessment recorded. Plan of Treatment Reminders Order Date Submit Date Provider Last Modified By Organization Details Last Modified Time Details Appointments None recorded. Lab None recorded. Referral None recorded. Procedures None recorded. Surgeries laparoscopi c ovarian cystectomy (SURG) [address], [facility], [address], 4 15:27:21 salpingecto my, laparoscopi c (SURG) [address], [facility] [address], [address], 4 14:55:46 Imaging US, pelvis 2023 024 [email or web address] [place], [address], [place], [address], 4 20:19:08 US, transvagina l 2023 024 [email or web address] [place], [address], [place], [address], 4 20:19:08 Medication Orders doxycycline hyclate 100 mg capsule 2023 024 [facility] [place], [address], [place], [address], 4 18:20:26 metronidazo le 500 mg tablet 2023 024 [facility] [place], [address], [place], [address], 4 18:20:26 Patient TargetsNo targets recorded. Patient InstructionsNo instructions recorded. Reason for Referral None Reported. Results Created Date Observation Date Name Description Value Unit Range Abnormal Flag Note LastModifiedBy Organization Detail LastModifiedTime 04/08/19 24 04/08/2023 URINA LYSIS , WITH MICRO SCOPI C, REFLE X CULTU RE color, urine Yellow Not Available [facility] (Lab) [address] [place], [address], 04/09/2023 01:45:30 04/08/19 24 04/08/2023 URINA LYSIS , WITH MICRO SCOPI C, REFLE X CULTU RE clarity, urine Clear Not Available [facility] (Lab) [address] [place], [address], 04/09/2023 01:45:30 04/08/19 24 04/08/2023 URINA LYSIS , WITH MICRO SCOPI C, REFLE X CULTU RE specific gravity, urine 1.024 . 1.005- 1.035 Not Available [facility] (Lab) [address] [place], [address], 04/09/2023 01:45:30 04/08/19 24 04/08/2023 URINA LYSIS , WITH MICRO SCOPI C, REFLE X CULTU RE pH, urine 6.0 . 5.0-7. 0 Not Available [facility] (Lab) [address] [place], [address], 04/09/2023 01:45:30 04/08/19 24 04/08/2023 URINA LYSIS , WITH MICRO SCOPI C, REFLE X CULTU RE protein, UA 20 mg/dL negati ve, 10-20 Not Available [facility] (Lab) [address] [facility], [place], [address], 04/09/2023 01:45:30 04/08/19 24 04/08/2023 URINA LYSIS , WITH MICRO SCOPI C, REFLE X CULTU RE glucose, urine Normal mg/dL normal , negati ve Not Available [facility] (Lab) [address] [facility], [place], [address], 04/09/2023 01:45:30 04/08/19 24 04/08/2023 URINA LYSIS , WITH MICRO SCOPI C, REFLE X CULTU RE ketones, urine 10 mg/dL negati ve abnormal Not Available [facility] (Lab) [address] [facility], [place], [address], 04/09/2023 01:45:30 04/08/19 24 04/08/2023 URINA LYSIS , WITH MICRO SCOPI C, REFLE X CULTU RE bilirubin, urine Negati ve negati ve Not Available [facility] (Lab) [address] [facility], [place], [address], 04/09/2023 01:45:30 04/08/19 24 04/08/2023 URINA LYSIS , WITH MICRO SCOPI C, REFLE X CULTU RE blood, urine Negati ve negati ve Not Available [facility] (Lab) [address] [place], [address], 04/09/2023 01:45:30 04/08/19 24 04/08/2023 URINA LYSIS , WITH MICRO SCOPI C, REFLE X CULTU RE nitrite, urine Negati ve negati ve Not Available [facility] (Lab) [address] [place], [address], 04/09/2023 01:45:30 04/08/19 24 04/08/2023 URINA LYSIS , WITH MICRO SCOPI C, REFLE X CULTU RE leukocyte esterase, urine Negati ve cale/u L negati ve Not Available [facility] (Lab) [address] [facility], [place], [address], 04/09/2023 01:45:30 04/08/19 24 04/08/2023 URINA LYSIS , WITH MICRO SCOPI C, REFLE X CULTU RE urobilinogen , urine Normal mg/dL normal , <2.0 Not Available [facility] (Lab) [address] [facility], [place], [address], 04/09/2023 01:45:30 04/08/19 24 04/08/2023 URINA LYSIS , WITH MICRO SCOPI C, REFLE X CULTU RE RBC, urine 0-2 /hpf none, 0-2 Not Available [facility] (Lab) [address] [facility], [place], [address], 04/09/2023 01:45:30 04/08/19 24 04/08/2023 URINA LYSIS , WITH MICRO SCOPI C, REFLE X CULTU RE WBC, urine 0-5 /hpf none, 0-5 Not Available [facility] (Lab) [address] [facility], [place], [address], 04/09/2023 01:45:30 04/08/19 24 04/08/2023 URINA LYSIS , WITH MICRO SCOPI C, REFLE X CULTU RE squamous epithelial cells, urine Modera te /hpf none abnormal Not Available [facility] (Lab) [address] [facility], [place], [address], 04/09/2023 01:45:30 04/08/19 24 04/08/2023 URINA LYSIS , WITH MICRO SCOPI C, REFLE X CULTU RE bacteria, urine Trace /hpf none abnormal Not Available [facility] (Lab) [address] [place], [address], 04/09/2023 01:45:30 04/08/19 24 04/08/2023 URINA LYSIS , WITH MICRO SCOPI C, REFLE X CULTU RE hyaline cast, urine None /lpf none, 0-2 Not Available [facility] (Lab) [address], [place], [address], 04/09/2023 01:45:30 04/08/19 24 04/08/2023 URINA LYSIS , WITH MICRO SCOPI C, REFLE X CULTU RE mucus, urine Many /hpf none, trace, few abnormal Urine Cultu re not perfo rmed per refle x libia col. Not Available [facility] (Lab) [address], [place], [address], 04/09/2023 01:45:30 04/08/19 24 04/08/2023 urina lysis , dipst ick Leukocytes trace Not Available [facility] [address], [place], [address], 04/08/2023 09:21:27 04/08/19 24 04/08/2023 urina lysis , dipst ick Protein trace Not Available [place] [address], [place], [address], 04/08/2023 09:21:27 04/08/19 24 04/08/2023 urina lysis , dipst ick pH 5 Not Available [place] [address], [place], [address], 04/08/2023 09:21:27 04/08/19 24 04/08/2023 urina lysis , dipst ick Blood trace Not Available [place] [address], [place], [address], 04/08/2023 09:21:27 04/08/19 24 04/08/2023 urina lysis , dipst ick Specific [place] 1.015 Not Available [facility] [address], [place], [address], 04/08/2023 09:21:27 04/08/19 24 04/08/2023 urina lysis , dipst ick Ketone ++ Not Available [place] [address], [place], [address], 04/08/2023 09:21:27 04/08/19 24 04/08/2023 urina lysis , dipst ick Bilirubin + Not Available Angelica kovacs [address], [place], [address], 04/08/2023 09:21:27 04/18/19 24 04/18/2023 CA 125 Ca 125 17.0 units /mL 0.0-35 .0 This assay was perfo rmed using [employer] ratio n reage nts and test kits. Value s obtai jovanni with other assay metho ds or kits canno t be used inter garrison eably . Not Available [facility] (Lab) [address] [facility], [place], [address], 04/19/2023 05:00:45 04/18/19 24 04/18/2023 CULTU RE: URINE result report SEE RESULT S BELOW Test: Cultu re: Urine Speci men Sourc e: Urine Voide d Speci men Type: Urine Speci men Date: 2023 1:58 PM Resul t Date: 2023 5:51 AM Resul t Statu s: Final resul t Abnor mal: No Resul ting Lab: [facility] [address] [facility] [address] Tel: CULTU RE ----- ----- ----- --- No growt h in 1 day (dete ction level of 10,00 0 colon ies / ml.) Not Available [facility] (Lab) [address] [facility], [place], [address], 04/20/2023 06:54:05 04/10/19 24 04/10/2023 , pelvi s No observ ation record ed. [email or web address] [place] [address], [place], [address], 04/10/2023 12:44:00 04/10/19 24 04/10/2023 US, trans vagin al No observ ation record ed. [email or web address] [place] [address], [place], [address], 04/10/2023 12:43:51 04/10/19 24 04/10/2023 US, pelvi s No observ ation record ed. Emily [address], [place], [address], 04/17/2023 15:31:31 Result Notes None recorded. Problems Name Problem SNOMED Code Status Onset Date Resolution Date Notes Provider Name and Address Organization Details Recorded Time Threaten ed miscarri age [id number] Completed 201101/16/2012 Threaten ed , antepart um;Recor ded Elsewher e: No Locat ion: [facility] S ource: EHR Open Cut Examiner yoel: N Practi ce ID: 0001 [place] lable Time: 04:00:00 PM Tere Cazares [facility] 2 11:43:52 Primigra april [id number] Completed 201101/16/2012 Supervis ion of normal first pregnanc y;Record ed Elsewher e: No Locat ion: [facility] S ource: EHR Open Cut Examiner yoel: N Practi ce ID: 0001 [place] lable Time: 09:00:00 AM Tere Cazares [facility] 2 11:43:51 Amenorrh ea [id number] Completed 201101/16/2012 Absence of menstrua tion;Rec orded Elsewher e: No Locat ion: [facility]ander bethanie [facility] S ource: EHR Open Cut Examiner yoel: N Practi ce ID: 0001 [place] lable Time: 09:00:00 AM Tere Cazares [facility] 2 11:43:51 Pregnanc y test positive [id number] Completed 201101/16/2012 Pregnanc y examinat ion or test, positive result;R ecorded Elsewher e: No Locat ion: Angelica kovacs [facility] S ource: EHR Open Cut Examiner yoel: N Practi ce ID: 0001 [place] lable Time: 09:00:00 AM Not Available [facility] 0 21:19:58 Uncertai n viabilit y of pregnanc y [id number] Completed 201107/13/2021 PREG W INCONCLU SIVE VIABIL;P ractice ID: 0001 Tere benitez, [facility] 2 11:43:51 Threaten ed miscarri age [id number] Completed 201107/13/2021 Threaten ed , antepart um;Pract ice ID: 0001 Tere benitez [facility] 2 11:43:52 Primigra april [id number] Completed 201107/13/2021 Supervis ion of normal first pregnanc y;Practi ce ID: 0001 Tere benitez, [facility] 2 11:43:51 anatomy study Completed 201107/13/2021 [facility] ANATMC SURVEY;P ractice ID: 0001 Tere benitez [facility] 2 11:43:51 Palpitat ions [id number] Completed 201107/13/2021 Palpitat ions;Rec orded Elsewher e: No Locat ion: [facility] S ource: EHR Open Cut Examiner yoel: N Practi ce ID: 0001 [place] lable Time: 03:45:00 PM Tere benitez [facility] 2 11:43:52 Anxiety state [id number] Completed 201107/13/2021 Anxiety; Recorded Elsewher e: No Locat ion: Angelica [facility] S ource: EHR Open Cut Examiner yoel: N Practi ce ID: 0001 [place] lable Time: 03:45:00 PM Tere benitez [facility] 2 11:43:51 Adult health examinat ion Completed 201107/13/2021 Routine general medical examinat ion at a health care facility ;Practic e ID: 0001 Tere benitez [facility] 2 11:43:51 Headache [id number] Completed 201107/13/2021 Headache ;Practic e ID: 0001 Tere benitez [facility] 2 11:43:51 Routine antenata l care Completed 201107/13/2021 Supervis ion of other normal pregnanc y;Practi ce ID: 0001 Tere benitez [facility] 2 11:43:51 Mild pre-ecla mpsia [id number] Completed 201107/13/2021 Pre Eclampsi a Mild PET;Prac marilyn ID: 0001 Tere Cazares [facility] 2 11:43:52 Complica tion related to pregnanc y Completed 201107/13/2021 Weight Insuffic ient Antepart um;Pract ice ID: 0001 Tere Cazares [facility] 2 11:43:52 Elevated blood-pr essure reading without diagnosi s of hyperten anu [id number] Completed 201107/13/2021 Elevated blood pressure reading without diagnosi s of hyperten anu;Pra ctice ID: 0001 Tere benitez [facility] 2 11:43:52 Benign essentia l hyperten anu complica ting pregnanc y, childbir th and the puerperi um - not delivere d [id number] Completed 201101/16/2012 Antepart um benign essentia l hyperten anu;Rec orded Elsewher e: No Locat ion: Angelica [facility] S ource: EHR Open Cut Examiner yoel: N Practi ce ID: 0001 [place] lable Time: 04:00:00 PM Tere benitez, [facility] 2 11:43:51 Benign essentia l hyperten anu complica ting pregnanc y, childbir th and the puerperi um - not delivere d [id number] Completed 201107/13/2021 Hyperten anu During Pregnanc y;Practi ce ID: 0001 Tere beintez, [facility] 2 11:43:51 Antenata l screenin g Completed 201107/13/2021 Other antenata l screenin g based on amniocen tesis;Pr actice ID: 0001 Tere benitez, [facility] 2 11:43:51 Delivery normal [id number] Completed 201107/13/2021 Normal delivery ;Practic e ID: 0001 Tere benitez, [facility] 2 11:43:52 Single live from singleto n pregnanc y [id number] Completed 201107/13/2021 Mother with single liveborn ;Practic e ID: 0001 Tere benitez, [facility] 2 11:43:51 Severe pre-ecla mpsia - delivere d with postnata l complica tion [id number] Completed 201107/13/2021 Severe pre-ecla mpsia, postpart um;Pract ice ID: 0001 Tere benitez, [facility] 2 11:43:51 Severe pre-ecla mpsia - delivere d with postnata l complica tion [id number] Completed 201101/16/2012 Severe pre-ecla mpsia, postpart um;Recor ded Elsewher e: No Locat ion: [facility] S ource: EHR Open Cut Examiner yoel: Y Practi ce ID: 0001 [place] lable Time: 03:00:00 PM Tere Cazares [facility] 2 11:43:51 Speciali zed medical examinat ion Completed 201207/13/2021 Gynecolo gical Examinat ion;Rahat rded Elsewher e: No Locat ion: [facility] S ource: EHR Open Cut Examiner yoel: N Practi ce ID: 0001 [place] lable Time: 05:15:00 PM Tere Cazares [facility] 2 11:43:52 Malaise and fatigue [id number] Completed 201207/13/2021 Fatigue / Malaise; Recorded Elsewher e: No Locat ion: [facility] S ource: EHR Open Cut Examiner yoel: N Practi ce ID: 0001 [place] lable Time: 05:15:00 PM Tere Cazares [facility], [facility] 2 11:43:51 Vaginiti s and vulvovag initis Completed 201207/13/2021 Vaginiti s and vulvovag initis, unspecif ied;Prac marilyn ID: 0001 Tere Cazares [facility], [facility] 2 11:43:51 Ill-defi jovanni intestin al infectio n Completed 201207/13/2021 No Show Fee;Prac marilyn ID: 0001 Tere Cazares [facility], [facility] 2 11:43:51 Female genital organ symptoms [id number] Completed 201307/13/2021 Unspecif ied symptom associat ed with female genital organs;R ecorded Elsewher e: No Locat ion: [facility] S ource: EHR Open Cut Examiner yoel: N Practi ce ID: 0001 [place] lable Time: 01:30:00 PM Tere Cazares [facility] 2 11:43:51 Oral contrace ptive prescrib ed Completed 201307/13/2021 General counseli ng on prescrip tion of oral contrace ptives;R ecorded Elsewher e: No Locat ion: [facility] S ource: EHR Open Cut Examiner yoel: N Practi ce ID: 0001 [place] lable Time: 01:30:00 PM Tere Cazares [facility] 2 11:43:51 Right lower quadrant pain [id number] Completed 201307/13/2021 Abdomina l pain, right lower quadrant ;Recorde d Elsewher e: No Locat ion: [facility] S ource: EHR Open Cut Examiner yoel: N Practi ce ID: 0001 [place] lable Time: 03:00:00 PM Tere Cazares [facility] 2 11:43:51 Evaluati on finding Completed 201307/13/2021 VAG HI RISK HPV-DNA POS;Rahat rded Elsewher e: No Locat ion: [facility] S ource: EHR Open Cut Examiner yoel: N Practi ce ID: 0001 [place] lable Time: 02:10:37 PM Tere Cazares [facility] 2 11:43:52 Body mass index 30+ - obesity [id number] Completed 201407/13/2021 Body mass index (BMI) 34.0-34. 9, adult;Pr actice ID: 0001 Tere Cazares [facility] 2 11:43:51 Acute vaginiti s [id number] Completed 201507/13/2021 Acute vaginiti s;Record ed Elsewher e: No Locat ion: [facility] S ource: EHR Open Cut Examiner yoel: N Practi ce ID: 0001 [place] lable Time: 01:15:00 PM Tere Cazares [facility] 2 11:43:51 Vaginola bial hernia Completed 201507/13/2021 Other specifie d noninfla mmatory disorder s of vagina;R ecorded Elsewher e: No Locat ion: [facility] S ource: EHR Open Cut Examiner yoel: N Practi ce ID: 0001 [place] lable Time: 01:15:00 PM Tere Cazares [facility] 2 11:43:51 Pelvic and perineal pain [id number] Completed 201607/13/2021 Pelvic and perineal pain;Pra ctice ID: 0001 Tere Cazares [facility] 2 11:43:[address] Concept Completed 201607/13/2021 Encntr for demo specialist exam (general ) (routine ) w/o abn findings ;Practic e ID: 0001 Tere Cazares [facility] 2 11:43:52 Screenin g for malignan t neoplasm of rectum Completed 201607/13/2021 Encounte r for screenin g for malignan t neoplasm of rectum;P ractice ID: 0001 Tere Cazares [facility] 2 11:43:51 Pregnanc y test negative [id number] Completed 201607/13/2021 Encounte r for pregnanc y test, result negative ;Practic e ID: 0001 Tere Cazares [facility] 2 11:43:51 Amenorrh ea [id number] Completed 201607/13/2021 Amenorrh ea, unspecif ied;Rahat rded Elsewher e: No Locat ion: [facility] S ource: EHR Open Cut Examiner yoel: N Practi ce ID: 0001 [place] lable Time: 03:45:00 PM Tere benitez [facility] 2 11:43:51 Screenin g for malignan t neoplasm of cervix Completed 201607/13/2021 Screenin g for malignan t neoplasm s of the cervix;R ecorded Elsewher e: No Locat ion: [facility] S ource: EHR Open Cut Examiner yoel: N Practi ce ID: 0001 [place] lable Time: 03:45:00 PM Tere Cazares [facility] 2 11:43:51 Human papillom avirus deoxyrib onucleic acid detected , high risk on cervical specimen [id number] Completed 201607/13/2021 Cervical high risk HPV DNA test positive ;Recorde d Elsewher e: No Locat ion: [facility] S ource: EHR Open Cut Examiner yoel: N Practi ce ID: 0001 [place] lable Time: 10:29:01 AM Tere Cazares [facility] 2 11:43:52 Atypical squamous cells of undeterm ined signific ance on cervical Papanico laou smear [id number] Completed 201607/13/2021 Atyp squam cell of undet signfc cyto smr crvx (ASC-US) ;Practic e ID: 0001 Tere Cazares [facility] 2 11:43:52 Neoplasm of uterine cervix Completed 201607/13/2021 Mild cervical dysplasi a;Practi ce ID: 0001 Tere Cazares [facility] 2 11:43:51 Low grade squamous intraepi thelial lesion on cervical Papanico laou smear [id number] 105 Completed 201607/13/2021 Low grade intrepit h lesion cyto smr crvx (LGSIL); Recorded Elsewher e: No Locat ion: [facility] S ource: EHR Open Cut Examiner yoel: N Practi ce ID: 0001 [place] lable Time: 02:49:50 PM Tere Cazares [facility] 2 11:43:52 Low risk human papillom avirus deoxyrib onucleic acid detected in specimen from cervix [id number] 319803 Completed 201707/13/2021 Cervical low risk HPV DNA test positive ;Recorde d Poornimaher e: No Locat ion: [facility] S ource: EHR Open Cut Examiner yoel: N Practi ce ID: 0001 [place] lable Time: 08:30:00 AM Tere Cazares [facility] 11:43:51 Bleeding Completed 201707/13/2021 Abnormal uterine and vaginal bleeding , unspecif ied;Prac marilyn ID: 0001 Tere Cazares [facility] 11:43:51 Cyst of ovary Completed 201707/13/2021 Unspecif ied ovarian cyst, unspecif ied side;Pra ctice ID: 0001 Tere [facility] 11:43:[address] Concept Completed 201807/13/2021 Encntr for general adult medical exam w/o abnormal findings ;Recorde d Poornimaher e: No Locat ion: [facility] S ource: EHR Open Cut Examiner yoel: N Practi ce ID: 0001 [place] lable Time: 08:45:00 AM Tere Cazares [facility] 11:43:52 Lesion of ovary Completed 201807/13/2021 Other ovarian cyst, right side;Pra ctice ID: 0001 Terejaspreet Cazares [facility] 11:43:51 Problem Notes None recorded. Procedures Surgical History Date Name Laterality Status Provider Name and Address Organization Details Recorded Time 024 hysteroscopy with endometrial ablation completed [facility] 06/06/2023 12:34:13 024 laparoscopic salpingectomy completed [facility] 06/06/2023 12:34:41 024 laparoscopic removal of ovarian cyst completed Tere Adebayo [facility] 06/06/2023 12:35:10 024 Date of Last Mammogram completed Kelsi Harrington [facility] 04/08/2023 09:08:14 023 Date of Last Pap Smear completed Kelsi Harrington [facility] 04/08/2023 09:10:02 022 IUD Insertion completed Jaz Cool, [facility]- [address], [place], [address], [facility] 08/16/2021 12:17:08 019 Cholecystectomy completed [facility] 05/15/2023 10:19:04 003 extraction of wisdom tooth completed [facility] 05/15/2023 10:19:28 000 Ovarian Cystectomy completed [facility] 05/15/2023 10:18:54 Imaging Results None recorded. Procedure Notes None recorded. Medical Equipment None Reported. Allergies Allergen ID Allergen Name Allergen Category Reaction Reaction Severity Criticality Documentation Date Start Date Code Code System Note Provider Name and Address Organization Details Recorded Time 70116 egg extract food,medi cation Not available Not available Not available 02/18/2020 17136 15 RxNorm Comme nt: [facility]at [facility]; Not Available [facility] 0 14:20:37 21814 Product containin g penicilli n (product) medicatio n Not available Not available Not available 02/18/2020 70445 8001 SNOMED Comme nt: Locat [facility]: [facility]; Not Available [facility] 0 14:20:37 Medications Name Sig Start Date Stop Date Status Note LastModified by Organization Details LastModified Time id now influenza a & b 2 test kit TEST DIRECTED TODAY 05/13 completed Not Available Not Available Not Available Prometriu m 200 mg capsule take 1 capsule by oral route every day for 10 days at bedtime 12/01 completed Prescrib ed Elsewher e: No Locat ion: [facility] odify By: juli Kovacs ncounter DateTime : 11/23/19 10:00:13 AM Not Available Not Available Not Available Mirena 21 mcg/24 hr (up to 8 years) 52 mg intrauter ine device Take 1 device by intraute rine route. 04/11 completed Not Available Not Available Not Available buspirone 5 mg tablet active Not Available Not Available Not Available prednison e 10 mg tablet 03/09 completed Not Available Not Available Not Available doxycycli ne hyclate 100 mg capsule Take 1 capsule twice a day by oral route. active Not Available Not Available No t Available labetalol 200 mg tablet take 1 tablet (200MG) by oral route 1 times every day 05/19 completed Prescrib ed Elsewher e: No [facility] odify By: jocy reilly Encou nter DateTime : 01/14/20 12 02:44:54 PM Not Available Not Available Not Available sulfasala zine 500 mg tablet 04/08 completed Not Available Not Available Not Available clindamyc in HCl 300 mg capsule TAKE 1 CAPSULE BY MOUTH FOUR TIMES DAILY UNTIL ALL TAKEN 07/27 completed Not Available Not Available Not Available azithromy cely 250 mg tablet 07/27 completed Not Available Not Available Not Available hydrocodo ne 5 mg-acetam inophen 325 mg tablet TAKE ONE TABLET BY MOUTH EVERY 4 TO 6 HOURS NEEDED FOR PAIN 07/27 completed Not Available Not Available Not Available sumatript an 50 mg tablet take 1 tablet by oral route after onset of migraine ; may repeat after 2 hours if headache returns, not to exceed 200mg in 24hrs active Not Available Not Available No t Available leflunomi de 10 mg tablet active Not Available Not Available Not Available metronida zole 500 mg tablet take 1 tablet by oral route every 12 hours active Not Available Not Available No t Available azathiopr ine 50 mg tablet TAKE 1 TABLET BY MOUTH ONCE DAILY 07/27 completed Not Available Not Available Not Available naproxen 125 mg/5 mL oral suspensio n take 10 millilit er by oral route every 6 - 8 hours as needed with food 11/18 completed Prescrib ed Elsewher e: Yes Loca tion: [facility] odify By: boris Bhatia r DateTime : 06/16/19 16 01:15:00 PM Not Available Not Available Not Available prochlorp erazine maleate 10 mg tablet take 1 tablet (10MG) by oral route 3 times every day 01/15 completed Prescrib ed Elsewher e: No Locat ion: [facility] odify By: danilo Encounte r DateTime : 07/12/19 12 10:26:49 AM Not Available Not Available Not Available omeprazol e 40 mg capsule,d elayed release active Not Available Not Available Not Available oxycodone -acetamin ophen 5 mg-325 mg tablet 05/27 completed Not Available Not Available Not Available Metrogel Vaginal 0.75 % (37.5 mg/5 gram) insert 1 applicat orful by vaginal route every day at bedtime 12/16 completed Prescrib ed Elsewher e: No Locat ion: [facility] odify By: rajiv lucas DateTime : 11/28/19 10:29:01 AM Not Available Not Available Not Available famotidin e 20 mg tablet TAKE 1 TABLET BY MOUTH 2 TIMES DAILY. 07/27 completed Not Available Not Available Not Available triamcino lone acetonide 0.1 % dental paste active Not Available Not Available Not Available Klonopin 0.5 mg tablet take 1 tablet (0.5MG) by oral route 3 times every day 07/17 completed Prescrib ed Elsewher e: No Locat ion: [facility] odify By: omedical Encount er DateTime : 05/15/19 12 09:00:00 AM Not Available Not Available Not Available Zoloft 50 mg tablet take 1 tablet (50MG) by oral route every day 05/19 completed Prescrib ed Elsewher e: No Locat ion: [facility] odify By: jocy Zapataou nter DateTime : 11/27/19 12 10:13:05 AM Not Available Not Available Not Available dicyclomi ne 20 mg tablet 07/27 completed Not Available Not Available Not Available cephalexi n 500 mg capsule 07/27 completed Not Available Not Available Not Available oseltamiv ir 75 mg capsule 03/09 completed Not Available Not Available Not Available Vitamin B-12 250 mcg tablet 11/16 completed Prescrib ed Elsewher e: Yes Loca tion: [facility] odify By: dolly Kovacs ncounter DateTime : 11/19/19 18 08:30:00 AM Not Available Not Available Not Available diclofena c sodium 75 mg tablet,de layed release take 1 tablet by oral route 2 times every day 07/27 completed Not Available Not Available Not Available vitamin B complex tablet 11/16 completed Prescrib ed Elsewher e: Yes Loca tion: [facility] odify By: dolly Kovacs ncounter DateTime : 11/19/19 18 08:30:00 AM Not Available Not Available Not Available zolpidem 5 mg tablet TAKE 1 TABLET BY MOUTH EVERY DAY active Not Available Not Available No t Available clobetaso l 0.05 % topical ointment APPLY TWO TIMES A DAY BY TOPICAL ROUTE FOR 2 WEEKS 04/08 completed Not Available Not Available Not Available Nor-Q-D 0.35 mg tablet take 1 tablet by oral route every day 05/19 completed Prescrib ed Elsewher e: No Locat ion: [facility] odify By: jocy Hagan nter DateTime : 01/16/20 12 02:15:00 PM Not Available Not Available Not Available labetalol 300 mg tablet take 1 tablet (300MG) by oral route 2 times every day 05/19 completed Prescrib ed Elsewher e: No Locat ion: [facility] odify By: jocy reilly Enccl nter DateTime : 01/14/20 12 02:44:54 PM Not Available Not Available Not Available labetalol 100 mg tablet take 2 Tablet (200MG) by oral route 2 times every day 01/15 completed Prescrib ed Elsewher e: No Locat ion: [facility] odify By: danilo Encounte r DateTime : 11/21/19 12 05:45:00 PM Not Available Not Available Not Available Vitamin D2 1,250 mcg (50,000 unit) capsule take 1 capsule (73642IE ITS) by oral route every week 05/19 completed Prescrib ed Elsewher e: No Locat ion: [facility] odify By: jocy reilly Bennycl nter DateTime : 07/04/19 12 11:51:36 AM Not Available Not Available Not Available Zoloft 100 mg tablet take 1 tablet (100MG) by oral route every day 11/20 completed Prescrib ed Elsewher e: No Locat ion: [facility] odify By: theo Encounte r DateTime : 05/20/19 13 05:15:00 PM Not Available Not Available Not Available celecoxib 100 mg capsule TAKE 1 CAPSULE BY MOUTH 2 TIMES DAILY active Not Available Not Available No t Available PreviDent 5000 Plus 1.1 % cream 04/08 completed Not Available Not Available Not Available Zoloft 25 mg tablet take 1 tablet (25MG) by oral route every day 07/04 completed Prescrib ed Elsewher e: No Locat ion: [facility] odify By: lexis Encounte r DateTime : 05/15/19 12 09:00:00 AM Not Available Not Available Not Available ondansetr on 4 mg disintegr ating tablet 05/13 completed Not Available Not Available Not Available Ambien 10 mg tablet take 1 tablet by oral route every day at bedtime 07/27 completed Prescrib ed Elsewher e: Yes Loca tion: [facility] odify By: boris Encounte r DateTime : 11/19/19 18 08:30:00 AM Not Available Not Available Not Available buspirone 15 mg tablet take 1 tablet (15MG) by oral route 2 times every day 06/24 completed Prescrib ed Elsewher e: No Locat ion: [facility] odify By: janeth lauren DateTime : 06/27/19 12 09:00:00 AM Not Available Not Available Not Available Calcium-5 00 500 mg (as calcium carbonate 1,250 mg) tablet 03/09 completed Prescrib ed Elsewher e: Yes Loca tion: [facility] odify By: dolly Kovacs ncounter DateTime : 11/17/19 19 02:00:00 PM Not Available Not Available Not Available Lexapro 5 mg tablet take 1 tablet by oral route every day 11/18 completed Prescrib ed Elsewher e: Yes Loca tion: [facility] odify By: boris Navarrote r DateTime : 12/17/19 17 10:45:00 AM Not Available Not Available Not Available Ortho-Cyc louis (28) 0.25 mg-35 mcg tablet take 1 tablet by oral route every day 11/30 completed Prescrib ed Elsewher e: No Locat ion: [facility] odify By: amchristophe Bethanie ncounter DateTime : 06/25/19 14 01:30:00 PM Not Available Not Available Not Available duloxetin e 60 mg capsule,d elayed release TAKE ONE CAPSULE BY MOUTH DAILY active Not Available Not Available No t Available Cymbalta 20 mg capsule,d elayed release take 1 capsule by oral route 2 times every day 07/27 completed Prescrib ed Elsewher e: Yes Loca tion: [facility] odify By: boris Navarrote r DateTime : 11/19/19 18 08:30:00 AM Not Available Not Available Not Available magnesium active Not Available Not Nava ilable Not Available Pepcid 07/27 completed Not Available Not Available Not Available sulfasala zine 05/13 completed Not Available Not Available Not Available Soma 250 mg tablet take 1 tablet by oral route 3 times every day before meals and at bedtime 11/20 completed Prescrib ed Elsewher e: Yes Loca tion: [facility] odify By: [email or web address] Encounte r DateTime : 06/16/19 16 01:15:00 PM Not Available Not Available Not Available D3 Plus K2 Dots 05/13 completed Not Available Not Available Not Available Cimzia 400 mg/2 mL (200 mg/mL x 2) subcutane ous syringe kit 04/08 completed Not Available Not Available Not Available Triveen-D uo DHA 29 mg-1 mg-400 mg oral pack take 2 by Oral route once for 30 days 01/05 completed Prescrib ed Elsewher e: No Locat ion: [facility] odify By: katharina Kovacs ncounter DateTime : 12/08/19 15 06:00:00 PM Not Available Not Available Not Available folic acid 0.8 mg capsule 11/16 completed Prescrib ed Elsewher e: Yes Loca tion: [facility] odify By: dolly Kovacs ncounter DateTime : 03/11/19 19 08:45:00 AM Not Available Not Available Not Available Taltz Autoinjec tor 80 mg/mL subcutane ous inject 1 millilit er by subcutan eous route every 4 weeks in the abdomen, thigh, or upper arm rotating injectio n sites 03/09 completed Prescrib ed Elsewher e: Yes Loca tion: [facility] odify By: dolly Kovacs ncounter DateTime : 11/17/19 19 02:00:00 PM Not Available Not Available Not Available Fish Oil 1,000 mg (120 mg-180 mg) capsule 03/09 completed Prescrib ed Elsewher e: Yes Loca tion: [facility] odify By: dolly Kovacs ncounter DateTime : 11/17/19 19 02:00:00 PM Not Available Not Available Not Available Acid [employer] Architect (omeprazo le) 07/27 completed Not Available Not Available Not Available Humira(CF ) Pen 40 mg/0.4 mL subcutane ous kit 07/27 completed Not Available Not Available Not Available ID NOW COVID-19 Test Kit TEST DIRECTED TODAY 05/13 completed Not Available Not Available Not Available Skyrizi 150 mg/mL subcutane ous pen injector active Not Available Not Available Not Available Vitals Date Recorded Body height Body mass index (BMI) Body weight Systolic And Diastolic Provider Name and Address Organization Details Last Updated DateTime 04/18/2023 160.02 cm 34 kg/m2 65861.74 g 132/87 mm[Hg] [facility] 04/18/2023 12:01:26 Date Recorded Body height Body mass index (BMI) Body weight Systolic And Diastolic Provider Name and Address Organization Details Last Updated DateTime 05/15/2023 160.02 cm 33.8 kg/m2 97565.14 g 139/84 mm[Hg] Ludy Vaughn [facility] 05/15/2023 10:16:29 Date Recorded Body height Body mass index (BMI) Body weight Systolic And Diastolic Provider Name and Address Organization Details Last Updated DateTime 05/28/2023 160.02 cm 34 kg/m2 73213.74 g 138/89 mm[Hg] Kelsi Harrington [facility] 05/28/2023 18:09:08 Date Recorded Body height Body mass index (BMI) Body weight Systolic And Diastolic Provider Name and Address Organization Details Last Updated DateTime 06/06/2023 160.02 cm 34 kg/m2 97141.45 g 117/80 mm[Hg] [facility] 06/06/2023 12:32:53 Social History Question Answer Notes LastModified by Organizat ion Details LastModified Time Tobacco Smoking Status Former [facility] 08/20/2022 11:00:24 Do You Have An Advance Directive? No Information n ot available 07/27/2021 Are You Blind Or Do You Have Difficulty Seeing? No Information n ot available 07/27/2021 What Is Your Level Of Caffeine Consumption? Moderate Information not available 05/13/2022 How Much Tobacco Do You Chew? None Information not available 07/27/2021 In The 14 Days Before Symptom Onset, Have You Had Close Contact With A Laboratory-confirm ed COVID-19 While That Case Was Ill? No Information n ot available 07/27/2021 In The 14 Days Before Symptom Onset, Have You Had Close Contact With A Person Who Is Under Investigation For COVID-19 While That Person Was Ill? No Information not available 07/27/2021 Have You Been To An Area Known To Be High Risk For COVID-19? No Information not available 07/27/2021 Are You Deaf Or Do You Have Serious Difficulty Hearing? No Information not available 07/27/2021 What Type Of Diet Are You Following? REGULAR Information n ot available 07/27/2021 What Is The Highest Grade Or Level Of School You Have Completed Or The Highest Degree You Have Received? [id number] Information not available 07/27/2021 Are There Any Guns Present In Your Home? No Information not available 07/27/2021 Do You Use Protection During Sex? No Information not available 07/27/2021 Do You Use Your Seat Belt Or Car Seat Routinely? Yes Information not available 07/27/2021 Do You Have Smoke And Carbon Monoxide Detectors In Your Home? Yes Information not available 07/27/2021 How Much Tobacco Do You Smoke? No Information not available 07/27/2021 Do You Use Sunscreen Routinely? Yes Information not available 07/27/2021 Have You Used IV Drugs? No Information not available 07/27/2021 Do You Have Difficulty Walking Or Climbing Stairs? No Information not available 08/20/2022 Sex: Unknown Functional Status Question Answer Note LastModified by Organizat ion Details LastModified Time Do you use any illicit or recreational drugs? No Information not available 07/27/2021 What is your level of alcohol consumption? None Information not available 07/27/2021 Are you able to walk independently without assistance or assistive devices? YESWOREST Information not available 07/27/2021 Are you able to care for yourself independently? 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 No Information not available 08/20/2022 What is your exercise level? Occasional Information not available 05/13/2022 Mental Status Question Answer Note LastModified by Organization D etails LastModified Time Do you feel stressed (tense, restless, nervous, or anxious, or unable to sleep at night)? [id number] Information not available 07/27/2021 Family History Relationship Description Onset Age of this Age Resolved Age Notes LastModified by Organization Details LastModified Time Brother Asthma Not available 16:43:28 Paternal Grandmother Asthma Not available 2021 16:07:27 Paternal Grandmother Heart disease Not available 2021 16:07:34 Paternal Grandmother Hypertensive disorder Not available 2021 16:43:28 Paternal Grandmother Diabetes mellitus Not available 2021 16:43:28 Paternal Grandfather Heart disease Not available 2021 16:28:01 Paternal Grandfather Asthma Not available 2021 16:43:28 Paternal Grandfather Myocardial infarction Not available 07/27 16:43:28 Mother Heart disease Not available 2021 16:43:28 Father Myocardial infarction Not available 07/27 16:43:28 Father Heart disease Not available 2021 16:43:28 Medical History Condition Response Other N Blood Transfusion N Dermatologic Disorders N Gestational Diabetes N Anxiety Disorder Y Autoimmune disease Y Arthritis Y Polyps N Infertility N Acid Reflux (GERD) Y Cancer N Varicosities N Stroke N Neurologic/Epilepsy N Fibromyalgia N Headaches Y Kidney Disease N Heart Problems N Kidney or Bladder Problems N Eating Disorder N Art (IVF or FET) N Hepatitis/Liver Disease N No Past Medical History N Urinary Tract Infection Y Asthma N Trauma/Violence N Thrombophilias N Allergies (Food, seasonal, environmental ) Y Breast Cancer N Drug/Latex Allergies/Reactions Y Lung Disease N Defects or Inherited Disease N Breast Problem N Hematologic disorders N Anesthesia Complications N History of STI N Deep Vein Thrombosis N Polycystic ovary syndrome N History of abnormal pap Y Endometriosis Y High Cholesterol N Thyroid Problems N GI Problems Y Anemia Y Psychiatric Illness N Ovarian Cancer N Diabetes N Pulmonary (TB, Asthma) N Eczema Y Abuse/Domestic Violence N Depression/ depression Y Heart Disease N Pre-Eclampsia Y Hypertension N Osteoporosis N Gynecological History Statement/Question Response Abnormal Pap Y Flow Moderate Date of Last Mammogram 03/27/2023 Date of LMP 05/13/2023 N On BCP's at Conception? N STIs/STDs N Was last menstrual period normal N HPV Vaccine N Duration of Flow (days) 7 Current Control Method Tubal Ligat ion Age at First Child 31 Date of control 08/11/2021 Are cycles usually normal Y Sexually Active? Y IUD Menses Monthly N Date of DEXA bone scan Age of first menstrual cycle 11 Date of Last Pap Smear 08/20/2022 Sexual Problems? Y LMP Unknown N Obstetrics History GPAL:G 1 P 0 0 0 1 Type Value Living 1 Total 1 Past Encounters Encounter ID Performer Location Encounter Start Date Encounter Closed Date Diagnosis/Indication Diagnosis SNOMED-CT Code Diagnosis ICD10 Code Diagnosis IMO Codes Diagnosis Note [id number] Jaz Cool , [facility] [address] [address] 03/09/2020 11:08:01 03/09/2020 12:47:03 Gynecologic examination 09930219 Z01.419 Suggested Calcium with Vitamin D 1200-1500m g daily. Patient advised to get an annual flu shot in the fall and she could obtain at [facility] or [facility] clinic. Also to obtain TDap vaccinatio n if you have not had one in the last 10 years. Recommend yearly mammograms . Encouraged monthly self breast exams. Encourage safe sexual practices, to use condoms and limit partners if not already in a monogamous relationsh ip. Engage in daily exercise of low impact aerobic exercise 45-60 minutes 4-5 times weekly. Avoid tobacco and illicit drugs as well as using moderation with alcohol intake less than 1-2 8 oz beverages daily. This lifestyle behavior pattern will lead to less health conditions and longer life span. If BMI greater than 25 weight watchers or dietary consult advised. All questions have been answered. Patient appears to understand informatio n, but if you have any questions please call or respond to this email. Monogamous Hx of +HPV normal pap Pap/hpv updated this year Mammo ordered Contracept ion care management [id number] Z30.9 Discussed all control options and pt would like mirena IUD. I have discussed in detail all risks and benefits including risk of infection and perforatio n. She understand s she will need to contact office with next menses or may abstain, complete serum HCG day before placement, if neg can have IUD placed next day. Aware of need to verify with insurance device coverage. Literature given. All questions answered to patient satisfacti on. Menorrhagia [id number] N9 2.0 Has RA. On many medication s she feels would not be conducive to . Hx of infertilit y possibly related to endometrio sis d/t reports of chocolate cyst removal in her 20's. Her period has always been heavier but her/spouse want to ensure not a issue b/c of the tyoes of meds she is on. Would like to know good BC/period regulation options. We talked about Endo ablation/t ubal & IUD; along with other Progestero ne only methods. [id number] Jaz Cool , [facility] [address] [address] 04/11/2020 13:17:58 04/11/2020 14:26:26 Menorrhagia [id number] N92.0 Patient initially presents today for IUD insertion of mirena. She has a hx Autoimmune hepatitis & RA; and now recently diagnosed with lupus. She see[facility] . They recently discussed changing various medication for lupus/RA/a utoimmune hepatitis. Today, we agreed to hold off on mirena placement & have her contact her specialist to discuss mirena IUD with her current autoimmune conditions and new medication s. If they are okay with mirena placement she is aware a letter of clearance for this procedure will be required. In addition, option to consult for Tubal/endo ablation discussed. Prefers to investigat e if mirena an option for her first. Will call with update & if cleared with letter can call for mirena placement with next cycle. Time spent in visit is a total of 15 mins with at least 50% of visit consisting of counseling and review of plan of care. Additional precaution marya measures were taken to minimize potential exposure to the Covid-19 virus during this patient s visit, including available hand product advisor upon arrive, temperatur e check and being asked a series of screening questions. All staff wore face coverings during this encounter, as well as provided additional cleaning and sanitizing of all surfaces, including countertop s, pens, chairs, door handles, light switches, etc, prior to and following the patient s visit. [id number] Jaz Cool , [facility] [address] [address] 07/27/2021 16:20:17 07/31/2021 19:39:38 Gynecologic examination [id number] Z01.419 Suggested Calcium with Vitamin D 1200-1500m g daily. Patient advised to get an annual flu shot in the fall and she could obtain at [facility] or [facility] clinic. Also to obtain TDap vaccinatio n if you have not had one in the last 10 years. Recommend yearly mammograms . Encouraged monthly self breast exams. Encourage safe sexual practices, to use condoms and limit partners if not already in a monogamous relationsh ip. Engage in daily exercise of low impact aerobic exercise 45-60 minutes 4-5 times weekly. Avoid tobacco and illicit drugs as well as using moderation with alcohol intake less than 1-2 8 oz beverages daily. This lifestyle behavior pattern will lead to less health conditions and longer life span. If BMI greater than 25 weight watchers or dietary consult advised. All questions have been answered. Patient appears to understand informatio n, but if you have any questions please call or respond to this email. Pap/hpv sent STD Screen declined Genetic Screen discussed Colon Screen na Dexa Screen na Routine Labs UTD PCP\Mammo ordered Dyspareunia [id number] N94 .10 Will trial Pelvic floor therapy for PDF found on exam today [facility] ion care management [id number] Z30.9 Discussed all control options and pt would like mirena IUD. I have discussed in detail all risks and benefits including risk of infection and perforatio n. She understand s she will need to contact office with next menses or may abstain, complete serum HCG day before placement, if neg can have IUD placed next day. Aware of need to verify with insurance device coverage. Literature given. All questions answered to patient satisfacti on.[facility] for IUD mirenaWill call with next cycle for placement. [id number] Jaz Cool [facility] [address],[place] [address] 08/16/2021 11:17:49 08/16/2021 12:14:25 Screening procedure [id number] Z13.9 Insertion of intrauterine contraceptive device [id number] Z30.430 She has been counseled on all of the r/b/a of placement of an intrauteri ne device that include but are not limited to uterine perforatio n, injury to cervix, vagina, bladder, and bowel.Risk s of bleeding due to injury or increased irregular bleeding due to progestin effect of the device. Risks of infection would be increased within the first 21 days of placement with concommita nt cervicitis . She understand s that the device will need to be removed in this instance due to increased risk of Pelvic inflammato ry disease. Patient is aware she is at higher risk for STD and if contracted she could lose her fertility. Pt is aware that if occurs that she should contact office immediatel y to rule out ectopic which could be life threatenin g. IUD will also need to be removed and this could cause miscarriag e. Patient also informed that in the event her strings are absent or embedded at the time of removal she may need to have the IUD surgically removed. She was informed of the above and properly consented. IUD placed w/o complicati on. Patient should return to office after next period to check for string placement. Patient to expect irregular bleeding but should be seen in the ED if bleeding increases to soaking a pad an hour for at least 2 hours. She verbalized understand ing. RTO x 6wks string check IUD [id number] [facility] [facility] [address],[place] [address] 10/04/2021 09:24:56 10/04/2021 10:16:29 Intrauterine device check [id number] Z30.431 Here for IUD string check.Unab le to see strings on exam.Right side adnexal pain on exam.US orderedWil l contact with results. Patient is to contact office or go to nearest ED/Urgent care if fever >/= 100.1, pain, excessive bleeding, unusual drainage or swelling in area of concern; or experienci ng worsening sx's or new onset of concerning sx's. Understand ing verbalized . All questions answered to patient satisfacti on. Time spent in visit is a total of 15 mins with at least 50% of visit consisting of counseling and review of plan of care. [id number] Ac Whitfield MD [place] [address],[place] [address] 10/12/2021 16:58:57 10/15/2021 14:07:55 Mechanical complication of intrauterine contraceptive device [id number] T83.39XA R10.2 [id number] Ilene Brar [facility] [address],[place] [address] 05/13/2022 12:38:41 05/13/2022 14:11:50 Mass of right breast [id number] N63.10 Orders for right diagnostic mammogram and right breast ultrasound given to patientOrd ers faxed to [facility] ouraged her to schedule thisWill update patient with results when availableT o notify the office with any worsening symptoms, signs of infection, etc Time spent in visit is a total of 15 mins with at least 50% of visit consisting of counseling and review of plan of care. [id number] Jaz Cool , [facility] [address],[place] [address] 08/20/2022 11:00:10 08/20/2022 11:49:10 Gynecologic examination [id number] Z11.51 Z11.3 Z11.8 Suggested Calcium with Vitamin D 1200-1500m g daily. Patient advised to get an annual flu shot in the fall and she could obtain at [facility] or [facility] take care clinic. Also to obtain TDap vaccinatio n if you have not had one in the last 10 years. Recommend yearly mammograms . Encouraged monthly self breast exams. Encourage safe sexual practices, to use condoms and limit partners if not already in a monogamous relationsh ip. Engage in daily exercise of low impact aerobic exercise 45-60 minutes 4-5 times weekly. Avoid tobacco and illicit drugs as well as using moderation with alcohol intake less than 1-2 8 oz beverages daily. This lifestyle behavior pattern will lead to less health conditions and longer life span. If BMI greater than 25 weight watchers or dietary consult advised. All questions have been answered. Patient appears to understand informatio n, but if you have any questions please call or respond to this email.Pap/ hpv-sentST D Screen declinedGe netic Screen discussedC olon Screen PCPDexa Screen naRoutine Labs PCPMammo-b reast care with specialist A Mirena IUD prevents for up to 8 years, and also helps with heavy periods for up to 5 years in women who choose an IUD for control. [id number] Jaz Cool [facility] [address],[place] [address] 04/08/2023 08:51:56 04/08/2023 11:16:47 Urinary symptoms [id number] R39.9 Pain in pelvis [id number] R10.2 R10.9 Today we agreed to rule out [employer] issues & schedule TVUS.If this is wnl we will consider CT scan for kidney's/A bd to rule out other issues.Teddy l reach out with results & next steps POC. Declined std screenUrin e sent culture/mi croscopy ++blood Patient is to contact office or go to nearest ED/Urgent care if fever >/= 100.1, pain, excessive bleeding, unusual drainage or swelling in area of concern; or experienci ng worsening sx's or new onset of concerning sx's. Understand ing verbalized . All questions answered to patient satisfacti on. Time spent in visit is a total of 25 mins with at least 50% of visit consisting of counseling and review of plan of care. [id number] Ac Whitfield MD [place] [address],[place] [address] 04/10/2023 10:51:37 04/10/2023 11:47:48 Pain in pelvis [id number] R10.2 N83.291 [id number] Ac Whitfield MD [place] [address],[facility] [place] [address] 04/18/2023 11:54:18 04/22/2023 08:45:06 Cyst of right ovary [id number] N83.201 This patient is a 42-year-ol d female with a painful right ovarian cyst. We spent over 40 minutes face-to-fa ce, more than 50% was counseling . We made a decision to perform surgery. We spent time talking about the ovarian cyst. It has been present likely from more than 3 months. Her pain has been present for months. She has a large benign-al earing cyst. She would like definitive treatment. We talked about laparoscop ic ovarian cystectomy in detail. I recommende d she also have salpingect gibson bilaterall y. This would reduce her risk of ovarian cancer. We also talked about her heavy vaginal bleeding. She is a me Mirena IUD for heavy bleeding. It causes her some intermitte nt bleeding that is troublesom e. We talked about endometria l ablation in addition to the above procedures . She is going to consider that and call us on Friday. The ovarian cystectomy and salpingect gibson have been ordered. We talked about the etiology, natural history, treatment of ovarian cyst also. Patient understand s the risks of the surgery. She understand s that injuries may occur that result in hospitaliz ation, more surgery and severe illness. She understand s risk of hemorrhage and infection. She is completed the informed consent process and is ready to proceed. Female sterilization [id number] Z30.2 [id number] Ac Whitfield MD [place] [address],[place] [address] 05/15/2023 10:01:20 05/15/2023 11:02:08 Cyst of ovary [id number] N83.209 Female sterilization 608 32504 Z30.2 Menorrhagia [id number] N9 2.0 this patient is a 42-year-ol d female who has menorrhagi a, ovarian cyst, unwanted fertility. We agreed for laparoscop ic bilateral salpingect gibson and right ovarian cystectomy , along with endometria l ablation and hysterosco py. She understand s risks, benefits, and alternativ es. She is completed the informed consent process and is ready to proceed. [id number] Ac Whitfield MD [place] [address] [address] 05/28/2023 18:04:24 05/29/2023 12:20:49 Endometritis [id number] N71.9 this patient is a 43-year-ol d female who is 1 week postop from an endometria l ablation and bilateral salpingect gibson with ovarian cystectomy . She has foul-smell ing vaginal discharge. We are going to treat for endometrit is. We are going to prescribe and take doxycyclin e and Flagyl. Incisions are clean dry and intact. Some mild pain in the lower pelvis. Possibly secondary to infection. Treat and observe. She will contact us with any problems. We will see her as needed. [id number] Ac Whitfield MD [place] [address],[place] [address] 06/06/2023 12:12:18 06/06/2023 13:08:23 Endometritis [id number] N71.9 This patient is a 43-year-ol d female presents for follow-up on endometrit is post endometria l ablation. We started antibiotic s week ago. She denies any foul-smell ing discharge. She denies any nausea, vomiting, fever, chills. She started having palpitatio ns /PVCs or PACs after starting the antibiotic s. She went to urgent care. They sent her to the ER in the ER evaluated and sent her home. She is to follow up with Cardiology . She thinks there may be a [facility] ip to the antibiotic s. She has not sure. She is going to finish them. I suggested or discussed discontinu ing them with her. She is going to finish him. There are 2 more doses. She will follow-up as needed. Health Concerns Section Related Observation LastModified by Organization Detai ls LastModified Time None Recorded Concern Status LastModified by Organization Details LastModified Time None Recorded Advance Directives Directive N: Payers Insurance Date Sequence Insurance Name Policy Number Policy Herrera Covered Member ID Herrera Member ID Guarantor Name 09/16/2023 1 [facility] [id number] Alea Hawk [id number] Alea Hawk Notes Date Note Type Note Provider Name and Address Organization Details Recorded Time 04/18/2023 text/html This patient is a 42-year-old female with a painful right ovarian cyst. We spent over 40 minutes [id number]-[id number], more than 50% was counseling. We made a decision to perform surgery. We spent time talking about the ovarian cyst. It has been present likely from more than 3 months. Her pain has been present for months. She has a large benign-appearing cyst. She would like definitive treatment. We talked about laparoscopic ovarian cystectomy in detail. I recommended she also have salpingectomy bilaterally. This would reduce her risk of ovarian cancer. We also talked about her heavy vaginal bleeding. She is a me Mirena IUD for heavy bleeding. It causes her some intermittent bleeding that is troublesome. We talked about endometrial ablation in addition to the above procedures. She is going to consider that and call us on Friday. The ovarian cystectomy and salpingectomy have been ordered. We talked about the etiology, natural history, treatment of ovarian cyst also. Patient understands the risks of the surgery. She understands that injuries may occur that result in hospitalization, more surgery and severe illness. She understands risk of hemorrhage and infection. She is completed the informed consent process and is ready to proceed. Ac Whitfield MD [address], [place], [address], [facility] 04/18/2023 16:50:07 05/15/2023 text/html 42-year-old female with menorrhagia, ovarian cyst, unwanted fertility. We agreed to perform laparoscopic right ovarian cystectomy, bilateral salpingectomy and endometrial ablation with hysteroscopy. The patient understands the procedure. The procedure was described to the patient in great detail. the patient also understands the risks. The risks were also explained in detail. She understands that injuries May occur during surgery. She understands these injuries can result in hospitalization, more surgery, and severe illness. She understands there is risk of hemorrhage and infection. Ac Whitfield MD [address], [place], [address], [facility] 05/15/2023 10:59:08 05/28/2023 text/html this patient is a 43-year-old female who is 1 week postop from an endometrial ablation and bilateral salpingectomy with ovarian cystectomy. She has foul-smelling vaginal discharge. We are going to treat for endometritis. We are going to prescribe and take doxycycline and Flagyl. Incisions are clean dry and intact. Some mild pain in the lower pelvis. Possibly secondary to infection. Treat and observe. She will contact us with any problems. We will see her as needed. Ac Whitfield MD [address], [place], [address], [facility] 05/28/2023 18:27:18 06/06/2023 text/html This patient is a 43-year-old female presents for follow-up on endometritis post endometrial ablation. We started antibiotics week ago. She denies any foul-smelling discharge. She denies any nausea, vomiting, fever, chills. She started having palpitations /PVCs or PACs after starting the antibiotics. She went to urgent care. They sent her to the ER in the ER evaluated and sent her home. She is to follow up with Cardiology. She thinks there may be a relationship to the antibiotics. She has not sure. She is going to finish them. I suggested or discussed discontinuing them with her. She is going to finish him. There are 2 more doses. She will follow-up as needed. Ac Whitfield MD [address], [place], [address], [facility] 06/06/2023 13:07:59 OBGyn Episode Ob Episode Information Episode Created Date Number of Fetuses Patient Bloodtype Patient rh Status Prepregnancy Weight lbs Domestic Partner Domestic Partner Phone Father Name Pattern Gater Status 07/28/19 22 1 CLOSED Fetus Data First Name Last Name Admitted to NICU Weight (g) Sex Living Outcome Pediatric Complications Fetus ID Race Codes Race Delivery Type 2891.64 9 M Full Term [id number] Vaginal Delivery Avinash Calculation Initial Avinash Date Initial Exam Date Initial Exam Provider Initial Ultrasound Date Last Menstrual Period Date Ultra Sound Weeks Gestation 0 Eighteen To Twenty Week Avinash Update Ultra Sound Date Fundal Height At Umbil Quickening Date Ultra Sound Latest Weeks Gestation Final Avinash Confirmed By Final Avinash Confirmed Date Final Avinash Date Ultra Sound Latest Days Gestation 0 0 Menstrual History Last Menstrual Date Menses Monthly On Bcp Conception Prior Menses Frequency Hcg Plus Date Menarche Onset Age Delivery Information Delivery Date Delivery Type Labor Anesthesia Weeks Gestation Incision Type Labor Labor Length Hrs Delivered By Post Complications Tubal Sterilization Discharge Date Comments 2 Discharge Information Feeding Method Contraceptive Method Maternal HG B and HCT Levels
--- OUTSIDE RECORDS SUMMARY | 2024-12-29 10:26 | XMS_ITS | Clinical Summary ---
Author Organization [facility] Address [address] [place] [address] Care Team Providers Care Bus Assistant Name Role Phone Belen Bella RENU-CLUTCH OPERATOR Primary Care Provider + Source Comments [facility],non-owned Affiliates and Associated Physician Practices is amultiple site organization consisting of ambulatory clinics and hospital sitesin [place], [place], [place] and [place]. This disclosure is being madepursuant to the Care Everywhere program and may not contain all information available regarding this patient. Last updated 17.[facility] Allergies Active Allergy Reactions Criticality Noted Date Comments Egg Solids, Whole Other Low 09/20/2021 Severe abd pain. Penicillins Unknown 03/17/2019 Medications * Be aware that medications may not be up to date on this document. Alwaysverify current medications with the patient. DULoxetine (CYMBALTA) 60 MG capsule Take 1 (one) capsule by mouth every 24 hours 10/10/19 18 Active zolpidem (AMBIEN) 5 MG tablet Take 1 (one) tablet by mouth every 24 hours 09/29/19 18 Active busPIRone (BUSPAR) 5 MG tablet 07/14/19 20 Active clobetasol (TEMOVATE) 0.05 % ointment 02/29/20 20 Active magnesium 500 MG tablet Take 1 (one) tablet by mouth once daily Active ondansetron, disintegrating, (Zofran ODT) 4 MG tablet as needed 08/24/19 22 Active Cyanocobalamin (Vitamin B-12) 50 MCG Take 10 (ten) tablets by mouth once daily Active Anza-3 Fatty Acids (fish oil) 1000 MG capsule [...] 25 mg tablet extended release 24 hr 06/26/19 24 Active betamethasone dipropionate augmented (Diprolene) 0.05 % ointment Apply to affected area 2 times daily 50 g 3 07/21/19 24 Active PreviDent 5000 Plus 1.1 % 01/23/20 23 Active terbinafine (LamISIL) 250 MG tabletIndicatio ns:Rash and other nonspecific skin eruption TAKE 1 (ONE) TABLET BY MOUTH ONCE DAILY 42 tablet 10/23/19 24 Active tirzepatide (Zepbound) 5 MG/0.5ML injection 09/22/19 24 Active Tapinarof (Vtama) 1 % CREAIndications :Other psoriasis 1 Application by Apply externally route 2 times daily as needed as needed for itching. 30 day supply. 60 g 11 12/16/19 24 Active halobetasol (Ultravate) 0.05 % cream Apply to rashes on elbows, feet, ankles twice daily prn. Use for only 2 weeks of each month. 30 days supply. 50 g 11 12/16/19 24 Active valACYclovir (Valtrex) 1 GM tablet Take 1 (one) tablet by mouth 2 times daily . For lip lesions. 4 tablet 03/01/20 24 Active hydroxychloroqu ine (Plaquenil) 200 MG tabletIndicatio ns:Inflammatory arthritis TAKE 1 (ONE) TABLET BY MOUTH TWO (2) TIMES DAILY 180 tablet 1 03/15/19 25 Active celecoxib (CeleBREX) 100 MG capsuleIndicati ons:Seronegativ e rheumatoid arthritis (HCC) TAKE ONE (1) CAPSULE BY MOUTH TWO (2) TIMES DAILY NEEDED 180 capsule 05/07/19 25 Active omeprazole (PriLOSEC) 40 MG capsule Take 1 (one) capsule by mouth daily before breakfast 09/10/19 25 Active upadacitinib ER (Rinvoq) 15 MG tabletIndicatio ns:Psoriatic arthritis (HCC) Take 1 (one) tablet by mouth once daily 30 tablet 5 10/06/19 25 Active leflunomide (Arava) 10 MG tabletIndicatio ns:Inflammatory arthritis TAKE 1 (ONE) TABLET BY MOUTH ONCE DAILY 90 tablet 12/21/19 25 Active leflunomide (Arava) 10 MG tabletIndicatio ns:Inflammatory arthritis TAKE 1 (ONE) TABLET BY MOUTH ONCE DAILY 90 tablet 10/22/19 25 025 Discontinued Active Problems Problem Noted Date Diagnosed Date Iron deficiency anemia 09/20/2021 Seronegative rheumatoid arthritis 08/01/2019 Positive antinuclear antibody 11/17/2017 Eczema 10/16/2017 Other psoriasis 04/11/2016 Major depressive disorder, single episode 2011 Encounters Date Type Department Care Team Description 12/20/2024 Refill [facility] Rheumatology [address] [place] [address], [address] [place] [address] Chantelle Forbes MD Refill Request 10/25/2024 Results Follow-Up [address], [address] [place] [address] Chantelle Forbes MD 10/20/[address], [address] [place] [phone] Chantelle Forbes MD Refill Request 10/04/2024 Refill [facility] Rheumatology [address] [place] [id number] Chantelle Forbes MD Refill Request (Rinvoq) 10/04/[address], [address] [place] [phone] Chantelle Forbes MD Medication Prior Auth Request from Last 3 Months Immunizations Immunization Administration [...] AM CDT Legal Sex Female 2:15 PM POWER PLANT ASSISTANT Gender Identity Female 07/10/2020 8:48 AM [...] st Contact Info) Description 02/02/2025 3:20 PM POWER PLANT ASSISTANT Office Visit [facility] - Rheumatology [address], [address] [place] [address] Chantelle Forbes MD [address] [place] [id number] Health Maintenance Due Date Last Done Comments [...] SCREENING 03/03/2024 02/10/2023, 11/20/2022, 05/01/2022 COVID-19 VACCINE ( season) 2024 03/23/2021, 05/10/2020, 05/08/2020 INFLUENZA VACCINE [...] Diagnosis Comments COMPLEMENT C3 C4 PANEL Routine 8:03 AM CDT Psoriatic arthritis (HCC) DANN [...] SCREEN ACUTE ([facility]) Routine 04/06/2024 1:01 PM POWER PLANT ASSISTANT Seronegative rheumatoid arthritis from Last 3 Months or Most Recently Relevant to Health Maintenance Results * C-REACTIVE PROTEIN (10/22/2024 8:03 AM CDT) C-Reactive Protein <1 0 - 10 mg/L [facility] ACCOUNT BILL Blood BLOOD SPECIMEN / Unknown 10/22/2024 8:03 AM CDT 10/22/2024 Narrative [facility] ACCOUNT BILL - 10/23/2024 9:10 AM CDT Performed at: 01 - [facility] [id number] Airline Ticket Agent: Shayne Garrett PhD, Phone: [phone] us Chantelle Forbes MD LAB - CHEMISTRY ORDERABLES Final Result [facility] ACCOUNT BILL [address] [place] [address] * (ABNORMAL) DANN BLOOD SCREEN W/REFLEX TITER (10/22/2024 8:03 AM CDT) DANN Positive(A) [facility] ACCOUNT BILL Comment: Negative <1:80 Borderline 1:80 Positive >1:80 Performed at: 01 - [facility] [address] [id number] Airline Ticket Agent: Shayne Garrett PhD, Phone: [phone] Speckled Pattern 1:160(H) [facility] ACCOUNT BILL Comment:ICAP nomenclature: A C-2,4,5,29 Note Comment [facility] ACCOUNT BILL Comment: Pattern Potential Disease Association Homogeneous Systemic Lupus Erythematosus, Drug Induced Systemic Lupus Erythematosus, Chronic Autoimmune hepatitis, Juvenile Idiopathic Arthritis Speckled Sjogren Syndrome, Systemic Lupus Erythematosus, Subacute Cutaneous Lupus, Lupus, Congenital Heart Block, Mixed Connective Tissue Disease, Scleroderma-diffuse, Scleroderma-Autoimmune Myositis Overlap Syndrome, Systemic Lupus Nkrahntmvbroo-Kxwcrlpyftk-Nrpsppcgge Myositis Overlap Syndrome, Systemic Autoimmune Rheumatic Disease, [...] - 10/26/2024 5:09 PM CDT Performed at: [facility] [id number] Airline Ticket Agent: Shayne Garrett PhD, Phone: [phone] Chantelle Forbes MD LAB - CHEMISTRY ORDERABLES Final Result [facility] ACCOUNT BILL [address] [place] [address] * ERYTHROCYTE SEDIMENTATION RATE (10/22/2024 8:03 AM CDT) Erythrocyte Sedimentation Rate Juanren 9 0 - 32 mm/hr [facility] ACCOUNT BILL Blood BLOOD SPECIMEN / Unknown 10/22/2024 8:03 AM CDT 10/22/2024 Narrative [facility] ACCOUNT BILL - 10/23/2024 8:11 AM CDT Performed at: [address] [id number] Airline Ticket Agent: Shayne Garrett PhD, Phone: [phone] Chantelle Forbes MD LAB - HEMATOLOGY ORDERABLES Joycelyn l Result [facility] ACCOUNT BILL [address] [place] [address] * (ABNORMAL) CBC WITH DIFFERENTIAL (10/22/2024 8:03 [...] 7:09 AM CDT Performed at: 01 - [facility] [id number] Airline Ticket Agent: Shayne Garrett PhD, Phone: [phone] us Chantelle Forbes MD LAB - HEMATOLOGY ORDERABLES Joycelyn l Result [facility] ACCOUNT BILL [address] [place] [address] * COMPREHENSIVE METABOLIC PANEL (10/22/2024 8:03 AM CDT) [facility] Glucose 88 70 - 99 mg/dL [facility] [...] 7:09 AM CDT Performed at: 01 - [facility] [id number] Airline Ticket Agent: Shayne Garrett PhD, Phone: [phone] Chantelle Forbes MD LAB - CHEMISTRY ORDERABLES Final Result Performing Organization Address City/[facility]/ZIP Co de Phone Number [facility] ACCOUNT BILL [address] [place] [address] * COMPLEMENT C3 C4 PANEL (10/22/2024 8:03 AM CDT) Complement C3 121 82 - 167 mg/dL [facility] ACCOUNT BILL Complement C4 18 12 - 38 mg/dL [facility] ACCOUNT BILL Blood BLOOD SPECIMEN / Unknown 10/22/2024 8:03 AM CDT 10/22/2024 Narrative [facility] ACCOUNT BILL - 10/23/2024 9:10 AM CDT Performed at: 01 - [facility] [id number] Airline Ticket Agent: Shayne Garrett PhD, Phone: [phone] Chantelle Forbes MD LAB - CHEMISTRY ORDERABLES Final Result Performing Organization Address [facility] de Phone Number [facility] ACCOUNT BILL [address] [place] [address] * (ABNORMAL) INFLAMMATORY BOWEL DISEASE PANEL (10/22/2024 8:02 AM CDT) Pathologist [facility] Saccharomyces cerevisiae Antibody IgG 35.5(H) 0.0 - [...] 10/25/2024 5:09 PM CDT Performed at: - [facility] [id number] Airline Ticket Agent: Margarito Mo MD, Phone: [phone] Performed at: - [facility] [id number] Airline Ticket Agent: Shayne Garrett PhD, Phone: [phone] Chantelle Forbes MD LAB - CHEMISTRY ORDERABLES Final Result Performing Organization Address City/State/[facility] Co de Phone Number [facility] ACCOUNT BILL [address] [place] [address] * HEPATITIS SCREEN ACUTE ([facility]) (04/06/2024 1:01 PM POWER PLANT ASSISTANT) [facility] Hepatitis A Virus Antibody IgM Negative Negative [facility] ACCOUNT BILL Comment: A negative anti-HAV IgM result suggests no recent or current HAV infection. Hepatitis B Virus Surface Antigen Negative Negative [facility] ACCOUNT BILL Hepatitis B Core Virus Antibody IgM Negative Negative [facility] ACCOUNT BILL Hepatitis C Antibody Non Reactive Non Reactive [facility] ACCOUNT BILL Comment: Performed at: - [facility] [address] [id number] Airline Ticket Agent: Shayne Garrett PhD, Phone: [phone] Interpretation Comment [facility] ACCOUNT BILL Comment: Not infected with HCV unless early or acute infection is suspected (which may be delayed in an immunocompromised individual), or other evidence exists to indicate HCV infection. Blood BLOOD SPECIMEN / Unknown 04/06/2024 1:01 PM POWER PLANT ASSISTANT 04/06/2024 Narrative [facility] ACCOUNT BILL - 04/07/2024 7:09 AM POWER PLANT ASSISTANT Performed at: [facility], [place] [id number] Airline Ticket Agent: Shayne Garrett PhD, Phone: [phone] Chantelle Forbes MD LAB - CHEMISTRY ORDERABLES Final Result Performing Organization Address City/State/[facility] Co de Phone Number [facility] ACCOUNT BILL [address] [place] [address] from Last 3 Months or Most Recently Relevant to Health Maintenance Insurance [facility]ARE [facility] CARE SELF PAY NO INSURANCE Member Subscriber Plan / Payer (Ef fective for All Dates) Name:Alea Hawk Member ID:Not on file Relation to Subscriber:Not on file Name:ALEA HAWK Subscriber ID:Not on file (Home) Address: [address] [place], [place] [id number] Payer ID:Not on file Group ID:Not on file Type:Self Pay Address: [place], [place] [employer] SELF PAY NO INSURANCE Member Subscriber Plan / Payer (Ef fective for All Dates) Name:Alea Hawk Member ID:Not on file Relation to Subscriber:Not on file Name:ALEA HAWK Subscriber ID:Not on file Address: [address] [place] [address] Payer ID:Not on file Group ID:Not on file Type:Self Pay Address: [place], [place] HEALTH CARE SELF PAY NO INSURANCE Member Subscriber Plan / Payer (Ef fective for All Dates) Name:Alea Hawk Member ID:Not on file Relation to Subscriber:Not on file Name:ALEA HAWK Subscriber ID:Not on file Address: [address] [place] [address] Payer ID:Not on file Group ID:Not on file Type:Self Pay Address: [place], [place] [facility] SELF PAY NO INSURANCE Member Subscriber Plan / Payer (Ef fective for All Dates) Name:Alea Hawk Member ID:Not on file Relation to Subscriber:Not on file Name:ALEA HAWK Subscriber ID:Not on file Address: [address] [place] [id number] Payer ID:Not on file Group ID:Not on file Type:Self Pay Address: [place], [place] Care Teams Bus Assistant Relationship Specialty Start Date End Date Belen Bella APRN-LATA [address] [place] [address] [address] [place] [address] PCP - General Nurse Practitioner 02/10/23
--- OUTSIDE RECORDS SUMMARY | 2024-12-29 10:26 | XMS_ITS | Clinical Summary ---
Author Organization [facility] Care Team Providers Care Production Troubleshooter Name Role Phone Belen Bella APRN Primary Care Provider [phone] Allergies Active Allergy Reactions Criticality Noted Date Comments Egg Protein-Containing Drug Products Unknown Penicillin G Unknown As a [...] JOIE TO RASH BID 2 9 Active [place]-3 Fatty Acids (FISH OIL PO) Take 1 [...] Influenza Immunization (#1) 2024 SARS-COV-2 Immunization ( - season) 2024 05/10/2020, 05/08/2020 Respiratory Syncytial Virus [...] Priority Date/Time Associated Diagnosis Comments PATHOLOGY CYTOLOGY COMMERCIAL ADMINISTRATOR Routine 12/07/2014 from Last 3 Months or Most Recently Relevant to Health Maintenance Results * PATHOLOGY CYTOLOGY COMMERCIAL ADMINISTRATOR (12/07/2014) Specimen of unknown material (specimen) us Historical Provider PATHOLOGY/CYTOLOGY ORDERA BLES Final Result from Last 3 Months or Most Recently Relevant to Health Maintenance Care Teams Production Troubleshooter Relationship Specialty Start Date End Date Belen Bella APRN PCP - General Advanced Practice Nurse 01/16/19
== END 2024-12-29 09:33 | disposition home or self-care (01) ==
PROVIDERS: PCP Nurse Practitioner Adult Health; Visit Provider Nurse Practitioner Adult Health
DX: M79.661 Pain in right lower leg (principal)
CPT/HCPCS: 93971

== ENCOUNTER 2025-01-12 15:00 | Outpatient (RCR) | payer OTHER, SELFPAY ==
--- NOTE | 2024-11-25 16:04 | OPREHPOC ---
Outpatient Therapy Plan of Care This is a Multidisciplinary Plan of Care that may contain components documented by all disciplines (PT, OT, and ST.) PT Problem 1 PT Problem #1 Knowledge Deficit PT Goal 1 Goal / Goal Update 1. Patient will perform independent HEP Target Visit 3 PT Problem 2 PT Problem #2 Pain PT Goal 1 Goal / Goal Update 1. Pelvic pain 2/10 at highest with all typical activities Target Visit 6 PT Problem 3 PT Problem #3 Impaired Functional ADLs PT Goal 1 Goal / Goal Update 1. No incontinence for at least 1 month 2. Patient able to perform pelvic floor contraction and relaxation to allow for full medical management including pap smear, ultrasound , etc. Target Visit 6
--- NOTE | 2024-11-25 16:04 | PTOPEVAL1 ---
Assessment and note entered by Yulissa Antunez DPT Evaluation Information Assessment Status Evaluation ICD-10 Condition Codes (PT) Pelvic and perineal pain R10.2 Subjective Information Pt reports she is having lower abdominal/pelvic pain. Has seen her OB-ELECTRIC MOTOR ASSEMBLER AND TESTER and GI. Does have a history of ovarian cysts and endometriosis. Pt has had pain for over a year. Significant pain with intercourse, recently describes it as sharp. Highest pain 7/10 and lowest 1-2/10. Denies n/t. Voids 7-10 and 1 time at night. Can hold urge to void as long as needed. Urinary incontinence with increased activity (playing softball) about one time a week. Sometimes has had to change her clothes and wears a pad. Sometimes gets pain with urination. BM every other day lately and reports a history of GI issues including chronic constipation. Denies fecal incontinence and sometimes has pain with BM. Pt has been 1 time, vaginal delivery. Grade 2 tear. Uterine ablation and tubal ligation in 2023. Gall bladder removal 2019. Pt has lupus and sero- negative RA, autoimmune hepatitis which in remission currently. Returns to MD not scheduled, will be getting transvaginal US soon. Reported Pain Level Pain Score 3: Self Report Assessment PT Clinical Summary The patient is presenting to skilled therapy with a progressing history of pelvic/abdominal pain. She also reports infrequent urinary incontinence. She presents with moderately increased pelvic floor muscle tone and inability to contract/relax musculature. These impairments are contributing to her pain and she will benefit from therapy to reduce pain and return to full function. Plan of Care Interventions Electrical Stimulation,Gait Training,Hot Pack/Cold Pack,Manual Therapy,Neuro Re-education,Patient/ Caregiver Education,Therapeutic Activities, Therapeutic Exercise PT Services Indicated Yes Treatment Frequency and 1 time a week for 6 visits Duration These treatments will address the objective and functional deficits as defined above. The patient will be advanced safely and appropriately in order for the patient to progress towards his/her prior level of function. Additional exercises will be introduced and as well as a comprehensive home exercise program upon discharge, if needed, ?to ensure carryover of functional gains achieved in the clinic. This treatment plan has been reviewed and agreement upon by the patient.
--- NOTE | 2024-12-31 11:54 | OPREHPOC ---
Outpatient Therapy Plan of Care This is a Multidisciplinary Plan of Care that may contain components documented by all disciplines (PT, OT, and ST.) PT Problem 1 PT Problem #1 Knowledge Deficit PT Goal 1 Goal / Goal Update 1. Patient will perform independent HEP Target Visit 3 Progress Met PT Problem 2 PT Problem #2 Pain PT Goal 1 Goal / Goal Update 1. Pelvic pain 2/10 at highest with all typical activities Target Visit 6 Progress Met PT Problem 3 PT Problem #3 Impaired Functional ADLs PT Goal 1 Goal / Goal Update 1. No incontinence for at least 1 month 2. Patient able to perform pelvic floor contraction and relaxation to allow for full medical management including pap smear, ultrasound , etc. update 12/31/24 1. 3 weeks 2. improved but still unable to do full contract/ relax Target Visit 9 Progress Partially Met
--- NOTE | 2024-12-31 11:54 | PTOPPROG ---
Assessment and note entered by Yulissa Antunez DPT Evaluation Information Assessment Status Progress ICD-10 Condition Codes (PT) Pelvic and perineal pain R10.2 Subjective Information Overall feels better with therapy. Her pain intensity has decreased and it is less frequent as well. Highest pain in the last week 2/10 and lowest 0/10. Voiding 7-8 times a day and 1 time a night, has worked on urge suppression a little bit . Urinary incontinence has not happened for 3-4 weeks. Assessment PT Clinical Summary The patient has made good progress in therapy and reports decreased intensity and frequency of pain. She also reports no urinary incontinence for several weeks. She demonstrates improved pelvic floor muscle tone but still has difficulty with contract/relax of musculature. Due to her progress but continued pain and impairments, she will benefit from further therapy to restore full function. Plan of Care Interventions Electrical Stimulation,Gait Training,Hot Pack/Cold Pack,Manual Therapy,Neuro Re-education,Patient/ Caregiver Education,Therapeutic Activities, Therapeutic Exercise PT Services Indicated Yes Treatment Frequency and 1 visit every other week x 3 visits Duration These treatments will address the objective and functional deficits as defined above. The patient will be advanced safely and appropriately in order for the patient to progress towards his/her prior level of function. Additional exercises will be introduced and as well as a comprehensive home exercise program upon discharge, if needed, ?to ensure carryover of functional gains achieved in the clinic. This treatment plan has been reviewed and agreement upon by the patient.
--- NOTE | 2025-01-24 13:41 | PCPTNOTE ---
Patient called to cancel appointment 01/24/25. Unknown specifics.
== END 2025-02-23 23:59 | disposition home or self-care (01) ==
LOC: ANHPT 15:00
PROVIDERS: PCP Nurse Practitioner Adult Health; Visit Provider Obstetrics & Gynecology
DX: R10.20 Pelvic and perineal pain unspecified side (principal)
CPT/HCPCS: 97110; 97112; 97140; 97162; 97530